=== PATIENT | female | born 2000 | race Caucasian/White ===

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

== ENCOUNTER 2019-07-09 08:52 | Emergency (ER) | payer BC ==
[2019-07-09 09:07] VITALS: BP 124/75; PULSE 82
--- NOTE | 2019-07-09 09:49 | EDM.PDOC ---
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 She states that she had been here to the hospital earlier to have a lab draw to check hCG and progesterone levels. She is 4 para 0 with history of 3 prior miscarriages. She states she is just leaving her house and slipped on a step falling again some plantars along the edge of the step falling to the right side. She has mild right hip discomfort but since that time has had pelvic pain, cramping and a small amount of spotting. She states the discomfort initially was quite severe and now more mild to moderate. No chest pain or difficulty breathing. No head neck or chest discomfort. Pelvic Pain Score (Numeric/FACES): 3 - Related Data Allergies Allergy/AdvReac Type Severity Reaction Status Date / Time amoxicillin Allergy Rash Verified 07/09/19 09:04 tree nut [Pecans] Allergy Airway Verified 07/09/19 09:04 Tightness walnuts Allergy Airway Uncoded 05/07/18 07:53 Tightness Home Meds: Home Meds Pnv No.95/Ferrous Fum/Folic AC [ Vitamin Tablet] 1 tab PO DAILY [History] Sertraline HCl 50 mg PO DAILY 07/09/19 [History] Past Medical History - Past Health History Medical/Surgical History: Denies Medical/Surgical History Respiratory History: Reports: Asthma Gastrointestinal History: Reports: GERD Genitourinary History: Reports: UTI, Recurrent 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 , 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 Psychiatric History: Reports: Depression Endocrine/Metabolic History: Reports: Obesity/BMI 30+ Dermatologic History: Reports: Eczema - Past Surgical History GI Surgical History: Reports: Colonoscopy, EGD Social & Family History - Family History Family Medical History: Noncontributory Oncologic: Reports: Brain, Breast - Caffeine Use Caffeine Use: Reports: Soda - Living Situation & Occupation Living situation: Reports: Single, with Family (Parents) 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 Denies: Nausea, Vomiting : Reports: Other (Patient states there was a small amount of blood when she wiped after her fall, there is been no active bleeding) Musculoskeletal: Reports: Joint Pain (3 mild right hip pain). Denies: Back Pain Skin: Reports: No Symptoms Neurological: Reports: No Symptoms ED EXAM - Physical Exam Exam: See Below Exam Limited By: No Limitations General Appearance: Alert, Anxious (Mild) Eye Exam: Bilateral Eye: PERRL Ears: Normal External Exam Nose: Normal Inspection Throat/Mouth: Normal Inspection Head: Atraumatic. No: Facial Swelling Neck: Supple, Non-Tender Respiratory/Chest: No Respiratory Distress, Lungs Clear, Normal Breath Sounds Cardiovascular: Regular Rate, Rhythm GI/Abdominal Exam: Soft, Non-Tender (Female) Exam: Normal External Exam. No: Vaginal Bleeding, Vaginal Discharge Extremities: Normal Inspection, Normal Range of Motion Neurological: Alert, Oriented, No Motor/Sensory Deficits Skin Exam: Warm, Dry, Normal Color Course - Vital Signs Last Recorded V/S: Last Vital Signs Temp 97.1 F 07/09/19 09:04 Pulse 82 07/09/19 09:04 Resp 18 07/09/19 09:04 BP 124/75 07/09/19 09:04 Pulse Ox 100 07/09/19 09:04 - Re-Assessments/Exams Free Text/Narrative Re-Assessment/Exam: 07/09/19 12:40 HCG drawn 4 days ago by the clinic was 84, hCG today drawn at the clinic prior to dictation arrival 338 with an increase of about what would be expected. Pelvic exam was done with no blood visible. Abdominal exam unremarkable. Have explained to patient that ultrasound today with date of only about 5 weeks is not likely to be very helpful. Patient understands, discharge instructions as documented. Departure - Departure Time of Disposition: 10:15 Disposition: Home, Self-Care 01 Condition: Fair Clinical Impression: Fall, First trimester - Discharge Information Instructions: First Trimester of , [id number] Referrals: Olive Barber DIRECTOR [employer] [Primary Care Provider] - Forms: ED Department Discharge, ED Return to Work/School Form Additional Instructions: Rest, increase activity slowly as tolerated, work note has been provided. No sexual activity recomended this week. Plan to follow-up OB clinic in about 1 week, call for appointment if you do not already have an appointment for the next week to 10 days. Return to ED as needed if symptoms worsening in any way.
== END 2019-07-09 10:55 | disposition home or self-care (01) ==
LOC: JD.ED 08:52
DX: O99.89 Other specified diseases and conditions complicating pregnancy, childbirth and the puerperium (principal); M25.551 Pain in right hip; R10.2 Pelvic and perineal pain; O99.511 Diseases of the respiratory system complicating pregnancy, first trimester; J45.909 Unspecified asthma, uncomplicated; O99.211 Obesity complicating pregnancy, first trimester; O99.341 Other mental disorders complicating pregnancy, first trimester; F32.9 Major depressive disorder, single episode, unspecified; E66.9 Obesity, unspecified; Z3A.01 Less than 8 weeks gestation of pregnancy; Z88.0 Allergy status to penicillin; Z91.018 Allergy to other foods
CPT/HCPCS: 99282; 99283

== ENCOUNTER 2019-07-15 09:19 | Emergency (ER) | payer BC ==
[2019-07-15 09:36] VITALS: BP 124/91; PULSE 104
--- NOTE | 2019-07-15 10:01 | EDM.PDOC ---
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 She is about 6 to 7 weeks gestation with a LNMP if mid to late May. She is G4 AB3. She has never taken a to term or near term. She was putting her progesterone suppository in this morning and she had some bleeding that was mild to moderate and then she started cramping. She has no fever, chills, cough, chest pain, shortness of breath, dysuria, diarrhea or vomiting. She did have some nausea earlier today. Her OB doctor is Dr Lawrence. Onset: Sudden Duration: Hour(s): Location: Reports: Abdomen, Pelvis Quality: Reports: Other (Cramping) Severity: Moderate Improves with: Reports: None Worsens with: Reports: None Associated Symptoms: Reports: Nausea/Vomiting. Denies: Chest Pain, Cough, Fever /Chills, Headaches, Shortness of Breath Lower Abdomen Pain Score (Numeric/FACES): 5 - Related Data Allergies Allergy/AdvReac Type Severity Reaction Status Date / Time amoxicillin Allergy Rash Verified 07/15/19 09:36 tree nut [Pecans] Allergy Airway Verified 07/15/19 09:36 Tightness walnuts Allergy Airway Uncoded 05/07/18 07:53 Tightness Home Meds: Home Meds Pnv No.95/Ferrous Fum/Folic AC [ Vitamin Tablet] 1 tab PO DAILY [History] Sertraline HCl 50 mg PO DAILY 07/09/19 [History] Progesterone. 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 Psychiatric History: Reports: Depression Endocrine/Metabolic History: Reports: Obesity/BMI 30+ Dermatologic History: Reports: Eczema - Past Surgical History GI Surgical History: Reports: Colonoscopy, EGD Social & Family History - Family History Family Medical History: Noncontributory Oncologic: Reports: Brain, Breast - Tobacco Use Smoking Status *Q: Current Every Day Smoker Years of Tobacco use: 3 Packs/Tins Daily: 0.2 - Caffeine Use Caffeine Use: Reports: Soda - Recreational Drug Use Recreational Drug Use: No - Living Situation & Occupation Living situation: Reports: Single, with Family (Parents) 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 Denies: Diarrhea, Vomiting : Reports: No Symptoms Musculoskeletal: Reports: No Symptoms ED EXAM - Physical Exam Exam: See Below Exam Limited By: No Limitations General Appearance: Alert, No Apparent Distress Ears: Normal External Exam Nose: Normal Inspection Head: Atraumatic, Normocephalic Neck: Normal Inspection Respiratory/Chest: No Respiratory Distress, Lungs Clear, Normal Breath Sounds Cardiovascular: Regular Rate, Rhythm, No Edema GI/Abdominal Exam: Soft, Non-Tender, No Organomegaly, No Mass (Female) Exam: Normal External Exam, Normal Speculum Exam (No bleeding and cervix is closed) Back Exam: Normal Inspection Extremities: Normal Inspection Neurological: Alert, Oriented, No Motor/Sensory Deficits Course - Vital Signs Last Recorded V/S: Last Vital Signs Temp 98.2 F 07/15/19 09:32 Pulse 104 H 07/15/19 09:32 Resp 15 07/15/19 09:32 BP 124/91 H 07/15/19 09:32 Pulse Ox 99 07/15/19 09:32 - Orders/Labs/Meds Orders: Active Orders 24 hr Category Date Time Status Pelvic Exam, Set Up [RC] ASDIRECTED Care 07/15/19 09:51 Active Labs: Laboratory Tests 07/15/19 07/15/19 07/15/19 Range/Units 09:59 10:15 10:15 WBC 13.43 H (3.98-10.04) K/mm3 RBC 4.63 (3.98-5.22) M/mm3 Hgb 13.7 (11.2-15.7) gm/dl Hct 41.0 (34.1-44.9) % MCV 88.6 (79.4-94.8) fl MCH 29.6 (25.6-32.2) pg MCHC 33.4 (32.2-35.5) g/dl RDW Std Deviation 43.1 (36.4-46.3) fL Plt Count 356 (182-369) K/mm3 MPV 9.4 (9.4-12.3) fl Neut % (Auto) 70.9 (34.0-71.1) % Lymph % (Auto) 17.8 L (19.3-51.7) % Desha % (Auto) 7.9 (4.7-12.5) % Eos % (Auto) 1.7 (0.7-5.8) Baso % (Auto) 0.2 (0.1-1.2) % Neut # (Auto) 9.52 H (1.56-6.13) K/mm3 Lymph # (Auto) 2.39 (1.18-3.74) K/mm3 Desha # (Auto) 1.06 H (0.24-0.36) K/mm3 Eos # (Auto) 0.23 (0.04-0.36) K/mm3 Baso # (Auto) 0.03 (0.01-0.08) K/mm3 Manual Slide Review Normal smear Sodium 136 (136-145) mEq/L Potassium 3.8 (3.5-5.1) mEq/L Chloride 104 (98-107) mEq/L Carbon Dioxide 22 (21-32) mEq/L Anion Gap 13.8 (5-15) BUN 8 (7-18) mg/dL Creatinine 0.6 (0.55-1.02) mg/dL Est Cr Clr Drug Dosing 129.15 mL/min Estimated GFR (MDRD) > 60 (>60) mL/min BUN/Creatinine Ratio 13.3 L (14-18) Glucose 98 (74-106) mg/dL Calcium 8.9 (8.5-10.1) mg/dL Total Bilirubin 0.4 (0.2-1.0) mg/dL AST 37 (15-37) U/L ALT 73 H (14-59) U/L Alkaline Phosphatase 88 (46-116) U/L Total Protein 6.7 (6.4-8.2) g/dl Albumin 3.7 (3.4-5.0) g/dl Globulin 3.0 gm/dL Albumin/Globulin Ratio 1.2 (1-2) Lipase 98 (73-393) U/L HCG, Quant mIU/mL Urine Color Yellow (Yellow) Urine Appearance Slt cloudy H (Clear) Urine pH 6.0 (5.0-8.0) Ur Specific [place] > or = 1.030 (1.005-1.030) Urine Protein 1+ H (Negative) Urine Glucose (UA) Negative (Negative) Urine Ketones Negative (Negative) Urine Occult Blood 3+ H (Negative) Urine Nitrite Negative (Negative) Urine Bilirubin 1+ H (Negative) Urine Urobilinogen 1.0 (0.2-1.0) Ur Leukocyte Esterase 1+ H (Negative) Urine RBC 20-30 H (0-5) /hpf Urine WBC 5-10 H (0-5) /hpf Ur Squamous Epith Cells 10-20 H (0-5) /hpf Amorphous Sediment Few H (NOT SEEN) /hpf Urine Bacteria Moderate H (FEW) /hpf Hyaline Casts 0-5 (0-5) /lpf Urine Mucus Many H (FEW) /hpf Blood Type 07/15/19 07/15/19 Range/Units 10:15 10:15 WBC (3.98-10.04) K/mm3 RBC (3.98-5.22) M/mm3 Hgb (11.2-15.7) gm/dl Hct (34.1-44.9) % MCV (79.4-94.8) fl MCH (25.6-32.2) pg MCHC (32.2-35.5) g/dl RDW Std Deviation (36.4-46.3) fL Plt Count (182-369) K/mm3 MPV (9.4-12.3) fl Neut % (Auto) (34.0-71.1) % Lymph % (Auto) (19.3-51.7) % Desha % (Auto) (4.7-12.5) % Eos % (Auto) (0.7-5.8) Baso % (Auto) (0.1-1.2) % Neut # (Auto) (1.56-6.13) K/mm3 Lymph # (Auto) (1.18-3.74) K/mm3 Desha # (Auto) (0.24-0.36) K/mm3 Eos # (Auto) (0.04-0.36) K/mm3 Baso # (Auto) (0.01-0.08) K/mm3 Manual Slide Review Sodium (136-145) mEq/L Potassium (3.5-5.1) mEq/L Chloride (98-107) mEq/L Carbon Dioxide (21-32) mEq/L Anion Gap (5-15) BUN (7-18) mg/dL Creatinine (0.55-1.02) mg/dL Est Cr Clr Drug Dosing mL/min Estimated GFR (MDRD) (>60) mL/min BUN/Creatinine Ratio (14-18) Glucose (74-106) mg/dL Calcium (8.5-10.1) mg/dL Total Bilirubin (0.2-1.0) mg/dL AST (15-37) U/L ALT (14-59) U/L Alkaline Phosphatase (46-116) U/L Total Protein (6.4-8.2) g/dl Albumin (3.4-5.0) g/dl Globulin gm/dL Albumin/Globulin Ratio (1-2) Lipase (73-393) U/L HCG, Quant 3768.0 mIU/mL Urine Color (Yellow) Urine Appearance (Clear) Urine pH (5.0-8.0) Ur Specific [place] (1.005-1.030) Urine Protein (Negative) Urine Glucose (UA) (Negative) Urine Ketones (Negative) Urine Occult Blood (Negative) Urine Nitrite (Negative) Urine Bilirubin (Negative) Urine Urobilinogen (0.2-1.0) Ur Leukocyte Esterase (Negative) Urine RBC (0-5) /hpf Urine WBC (0-5) /hpf Ur Squamous Epith Cells (0-5) /hpf Amorphous Sediment (NOT SEEN) /hpf Urine Bacteria (FEW) /hpf Hyaline Casts (0-5) /lpf Urine Mucus (FEW) /hpf Blood Type O POSITIVE - Re-Assessments/Exams Free Text/Narrative Re-Assessment/Exam: 07/15/19 10:02 I have ordered labs, UA, pelvic exam and a transvaginal OB US. 07/15/19 11:28 Her WBC was elevated at 13.43. Her CMP looks good. Her lipase is negative. Her HCG is elevated at 3768. That has gone up from 338 on the . Her UA shows no UTI and it was contaminated. Her US shows gestational sac and yolk sac. No pole. Findings most likely represent very early . No complicating process is seen by US at this time. I will discharge her and have her follow up with Dr Lawrence. Departure - Departure Time of Disposition: 11:30 Disposition: Home, Self-Care 01 Condition: Good Clinical Impression: Vaginal bleeding affecting early Qualifiers: Weeks of gestation: less than 8 weeks Qualified Code(s): Z3A.01 - Less than 8 weeks gestation of - Discharge Information *PRESCRIPTION DRUG MONITORING PROGRAM REVIEWED*: No *COPY OF PRESCRIPTION DRUG MONITORING REPORT IN PATIENT ALEXYS: No Referrals: Jese Lawrence MD [Primary Care Provider] - 1 Week Forms: ED Department Discharge Additional Instructions: No vaginal intercourse or heavy lifting over 10 pounds until cleared by Dr Lawrence. Please return if you are worse. - My Orders Last 24 Hours: My Active Orders 07/15/19 09:51 Pelvic Exam, Set Up [RC] ASDIRECTED - Assessment/Plan Last 24 Hours: My Active Orders 07/15/19 09:51 Pelvic Exam, Set Up [RC] ASDIRECTED
--- NOTE | 2019-07-15 10:57 | US ---
First trimester obstetrical ultrasound: Multiple real-time images were obtained transvaginally. Comparison: No previous study for current . Dates: LMP: LMP given as 05/24/19, MIGUEL 03/09/20, gestational age 6 weeks 0 days Small gestational sac is seen within the endometrial cavity. Yolk sac is noted but no pole is seen at this time most likely due to early age of the . No subchorionic hemorrhage or implantation bleed is seen at this time. Follicles are noted within the ovaries. Impression: 1. Gestational sac and yolk sac. No pole. Findings most likely represent very early . 2. No complicating process is seen by ultrasound at this time. Diagnostic code #1 This report was dictated in [place] Standard Time
== END 2019-07-15 11:38 | disposition home or self-care (01) ==
LOC: JD.ED 09:19
DX: O20.9 Hemorrhage in early pregnancy, unspecified (principal); O99.511 Diseases of the respiratory system complicating pregnancy, first trimester; J45.909 Unspecified asthma, uncomplicated; O99.331 Smoking (tobacco) complicating pregnancy, first trimester; Z88.0 Allergy status to penicillin; Z91.018 Allergy to other foods; Z3A.01 Less than 8 weeks gestation of pregnancy
CPT/HCPCS: 36415; 76817; 76817-26; 80053; 81001; 83690; 84702; 85025; 86900; 86901; 99282; 99284-25

== ENCOUNTER 2019-07-29 12:53 | Emergency (ER) | payer BC ==
[2019-07-29 13:19] VITALS: BP 124/71; PULSE 87
[2019-07-29] MEDS ORDERED: cefTRIAXone 1 GM Vial IM ONE (13:19)
[2019-07-29] MEDS ORDERED: Ondansetron 4 MG Tab.DIS PO ONE (13:19)
--- NOTE | 2019-07-29 13:23 | EDM.PDOC ---
ED HPI GENERAL MEDICAL PROBLEM - General Chief Complaint: Gastrointestinal Problem Stated Complaint: 7 WEEKS PREG VOMITING BLOOD AND DIZZY Time Seen by Provider: 07/29/19 13:14 Source of Information: Reports: Patient History Limitations: Reports: No Limitations - History of Present Illness INITIAL COMMENTS - FREE TEXT/NARRATIVE: Since unfortunate 19-year-old obese female who presents today with complaint of cough congestion runny nose and posttussive vomiting. Patient reports she has been sick for 2 days and she started having post vomiting today with streaks of blood in it so she became concerned and came to emergency department for evaluation. No abdominal pain no vaginal discharge no vaginal bleeding or dysuria no frequency or urgency. LMP 06/05/2019 6 weeks by dates, patient is a G4 A3 P0 - Related Data Allergies Allergy/AdvReac Type Severity Reaction Status Date / Time amoxicillin Allergy Rash Verified 07/29/19 13:19 tree nut [Pecans] Allergy Airway Verified 07/29/19 13:19 Tightness walnuts Allergy Airway Uncoded 05/07/18 07:53 Tightness Home Meds: Home Meds Pnv No.95/Ferrous Fum/Folic AC [ Vitamin Tablet] 1 tab PO DAILY [History] Sertraline HCl 50 mg PO DAILY 07/09/19 [History] Progesterone. 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 Psychiatric History: Reports: Depression Endocrine/Metabolic History: Reports: Obesity/BMI 30+ Dermatologic History: Reports: Eczema - Past Surgical History GI Surgical History: Reports: Colonoscopy, EGD Social & Family History - Family History Family Medical History: Noncontributory Oncologic: Reports: Brain, Breast - Caffeine Use Caffeine Use: Reports: Soda - Living Situation & Occupation Living situation: Reports: Single, with Family (Parents) 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 Denies: Ear Discharge, Ear Pain, Throat Swelling Respiratory: Reports: Cough. Denies: Sputum Cardiovascular: Denies: Chest Pain GI/Abdominal: Reports: Vomiting (Posttussive) ED EXAM, GENERAL - Physical Exam Exam: See Below Exam Limited By: No Limitations General Appearance: Alert, WD/WN, Obese Ears: Normal External Exam, Normal Canal, Hearing Grossly Normal, Normal TMs Nose: Normal Inspection, Normal Mucosa, No Blood Throat/Mouth: Other (Pharyngeal erythema, postnasal drainage) Head: Atraumatic, Normocephalic Neck: Normal Inspection, Supple, Non-Tender, Other (Cervical lymphadenopathy 2+) Respiratory/Chest: No Respiratory Distress, Other (Bronchial breath sounds) Cardiovascular: Normal Peripheral Pulses, Regular Rate, Rhythm, No Edema, No Gallop, No JVD, No Murmur, No Rub GI/Abdominal: Normal Bowel Sounds Back Exam: Normal Inspection, Full Range of Motion, NT Extremities: Normal Inspection, Normal Range of Motion, Non-Tender, Normal Capillary Refill, No Pedal Edema Neurological: Alert, Oriented Skin Exam: Warm, Dry, Intact Course - Vital Signs Last Recorded V/S: Last Vital Signs Temp 97.5 F 07/29/19 13:16 Pulse 87 07/29/19 13:16 Resp 15 07/29/19 13:16 BP 124/71 07/29/19 13:16 Pulse Ox 98 07/29/19 13:16 - Orders/Labs/Meds Meds: Medications Discontinued Medications Generic Name Dose Route Start Last Admin Trade Name Freq PRN Reason Stop Dose Admin Ceftriaxone Sodium 1 gm 07/29/19 13:19 Rocephin IM 07/29/19 13:20 ONETIME ONE Ondansetron HCl 4 mg 07/29/19 13:19 Zofran Odt PO 07/29/19 13:20 ONETIME ONE Departure - Departure Time of Disposition: 13:23 Disposition: Home, Self-Care 01 Condition: Good Clinical Impression: Acute bronchitis, Acute pharyngitis, Acute sinusitis - Discharge Information Prescriptions: Azithromycin [Zithromax] 250 mg PO DAILY #6 tab Promethazine/Dextromethorphan [Promethazine-Dm Solution] 5 ml PO Q6H PRN #120 ml PRN Reason: Cough Instructions: Sinusitis, Adult, [id number], Acute Bronchitis, Adult, Easy-to- Read Referrals: Jese Lawrence MD [Primary Care Provider] - Forms: ED Department Discharge Additional Instructions: Home, rest, return as needed for worsening condition Sepsis Event Note - Evaluation Sepsis Screening Result: No Definite Risk - Focused Exam Vital Signs: Vital Signs Temp Pulse Resp BP Pulse Ox 07/29/19 13:16 97.5 F 87 15 124/71 98 Date Exam was Performed: 07/29/19 Time Exam was Performed: 13:23
== END 2019-07-29 13:54 | disposition home or self-care (01) ==
LOC: JD.ED 12:53
DX: O99.511 Diseases of the respiratory system complicating pregnancy, first trimester (principal); J20.9 Acute bronchitis, unspecified; J02.9 Acute pharyngitis, unspecified; J01.90 Acute sinusitis, unspecified; J45.909 Unspecified asthma, uncomplicated; O99.211 Obesity complicating pregnancy, first trimester; E66.9 Obesity, unspecified; Z88.0 Allergy status to penicillin; Z91.018 Allergy to other foods; Z68.34 Body mass index [BMI] 34.0-34.9, adult; Z3A.01 Less than 8 weeks gestation of pregnancy
CPT/HCPCS: 96372; 99283; A9270; J0696

== ENCOUNTER 2019-08-13 10:10 | Emergency (ER) | payer BC ==
[2019-08-13 10:33] VITALS: BP 117/69; PULSE 63
--- NOTE | 2019-08-13 10:59 | EDM.PDOC ---
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 She states she is about 10 weeks with the first day of her last menstrual period being 09 June. She describes the bleeding as light, but significant enough to be visible in the toilet. She has not been saturating any pads. She is A3, so when she starts cramping and bleeding she comes in right away. She did see her OB doctor Howard on July 23, which she states was a follow-up from her previous miscarriage. She is on a progesterone suppository. She is unsure of her blood type. Pelvic Pain Score (Numeric/FACES): 7 - Related Data Allergies Allergy/AdvReac Type Severity Reaction Status Date / Time amoxicillin Allergy Rash Verified 08/13/19 10:33 tree nut [Pecans] Allergy Airway Verified 08/13/19 10:33 Tightness walnuts Allergy Airway Uncoded 05/07/18 07:53 Tightness Home Meds: Home Meds Pnv No.95/Ferrous Fum/Folic AC [ Vitamin Tablet] 1 tab PO DAILY [History] Sertraline HCl 50 mg PO DAILY 07/09/19 [History] Progesterone. 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 SUPERVISOR History: G 4 P 0 LMP 06/02 Psychiatric History: Reports: Depression Endocrine/Metabolic History: Reports: Obesity/BMI 30+ Dermatologic History: Reports: Eczema - Past Surgical History GI Surgical History: Reports: Colonoscopy, EGD Social & Family History - Family History Family Medical History: Noncontributory Oncologic: Reports: Brain, Breast - Tobacco Use Smoking Status *Q: Never Smoker - Caffeine Use Caffeine Use: Reports: Coffee, Soda - Recreational Drug Use Recreational Drug Use: No - Living Situation & Occupation Living situation: Reports: Single, with Family (Parents) 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 Denies: Fever, Chills HEENT: Reports: No Symptoms Respiratory: Reports: No Symptoms Cardiovascular: Reports: No Symptoms Endocrine: Reports: No Symptoms : Reports: Other (suprapubic pain and vaginal bleeding) Musculoskeletal: Reports: No Symptoms Skin: Reports: No Symptoms Neurological: Reports: No Symptoms Psychiatric: Reports: No Symptoms Hematologic/Lymphatic: Reports: No Symptoms Immunologic: Reports: No Symptoms ED EXAM - Physical Exam Exam: See Below Exam Limited By: No Limitations General Appearance: Alert, WD/WN, No Apparent Distress Respiratory/Chest: No Respiratory Distress, Lungs Clear, Normal Breath Sounds, No Accessory Muscle Use, Chest Non-Tender Cardiovascular: Normal Peripheral Pulses, Regular Rate, Rhythm, No Edema, No Murmur GI/Abdominal Exam: Normal Bowel Sounds, Soft, Other (mild suprapubic tenderness) (Female) Exam: Normal External Exam, Cervical Lesions (area of slight excoriation near the cervical os. no active bleeding.), Vaginal Discharge ( Thick white discharge present. Wet prep swab completed.). No: Cervical Dilatation, Tissue Present in Cervix/Vagina, Vaginal Bleeding Neurological: Alert, Oriented, Normal Cognition Psychiatric: Normal Affect, Normal Mood Skin Exam: Warm, Dry, Intact, Normal Color, No Rash Course - Vital Signs Last Recorded V/S: Last Vital Signs Temp 98.7 F 08/13/19 10:30 Pulse 63 08/13/19 10:30 Resp 16 08/13/19 10:30 BP 117/69 08/13/19 10:30 Pulse Ox 98 08/13/19 10:30 - Orders/Labs/Meds Orders: Active Orders 24 hr Category Date Time Status Pelvic Exam, Set Up [RC] ASDIRECTED Care 08/13/19 12:12 Active TYPE AND SCREEN [BBK] Stat Lab 08/13/19 11:13 Received Labs: Laboratory Tests 08/13/19 08/13/19 Range/Units 11:13 12:45 HCG, Quant 38007.0 mIU/mL Urine Color Yellow (Yellow) Urine Appearance Slt cloudy H (Clear) Urine pH 8.5 H (5.0-8.0) Ur Specific [place] 1.020 (1.005-1.030) Urine Protein Negative (Negative) Urine Glucose (UA) Negative (Negative) Urine Ketones Negative (Negative) Urine Occult Blood Negative (Negative) Urine Nitrite Negative (Negative) Urine Bilirubin Negative (Negative) Urine Urobilinogen 0.2 (0.2-1.0) Ur Leukocyte Esterase Negative (Negative) Urine RBC 0-5 (0-5) /hpf Urine WBC 0-5 (0-5) /hpf Ur Squamous Epith Cells 0-5 (0-5) /hpf Urine Bacteria Few (FEW) /hpf Urine Mucus Few (FEW) /hpf - Re-Assessments/Exams Free Text/Narrative Re-Assessment/Exam: I have ordered a type and screen, urinalysis, hCG quantitative, and an OB transvaginal ultrasound. Patient denies a need for any pain medications at this time. 08/13/19 13:04 Pelvic exam completed. Cervix is closed, there is no tissue in the os, and there is no active bleeding. There is a small area of excoriation near the cervical os. Patient was noted to have some thick white vaginal discharge. Wet prep was collected to check for the presence of a yeast infection. Patient denies any vaginal itching. Urinalysis is negative for any infection. Ultrasound shows a single intrauterine gestation with an estimated due date of . No complicating process as it is identified on the ultrasound. No etiology is identified for patient's bleeding. Patient's hCG is 84,625 which would correspond with the gestational age estimated by the ultrasound. Patient' s blood type is O+ so there is no need for Rhogam. I did discuss with her that at this time she is considered to have a threatened miscarriage. She'll be discharged home to follow up with Dr. Lawrence. Discharge instructions as noted. 08/13/19 14:14 Wet prep was negative for a yeast infection. No changes to plan of care. Departure - Departure Time of Disposition: 13:15 Disposition: Home, Self-Care 01 Condition: Fair Clinical Impression: Threatened - Discharge Information *PRESCRIPTION DRUG MONITORING PROGRAM REVIEWED*: No *COPY OF PRESCRIPTION DRUG MONITORING REPORT IN PATIENT ALEXYS: No Instructions: Threatened Miscarriage, Vaginal Bleeding During , First Trimester Referrals: Jese Lawrence MD [Primary Care Provider] - Forms: ED Department Discharge Additional Instructions: You were seen in the emergency department this morning with complaints of vaginal bleeding and cramping. There were no abnormal findings on your exam or testing to indicate a cause for the bleeding and no active bleeding was seen at the time of exam. As we discussed, at this time you have what is termed a threatened miscarriage which means that the testing and exam was normal, however , it is still possible that you may be having a miscarriage. We suggest that you call to schedule an appointment with your REMOTE ENCODING OPERATIONS SUPERVISOR at his next available appointment. If your bleeding should increase to the point where you're saturating more than 2 pads per hour for more than 2 hours or your pain becomes too severe to tolerate, you should return to the emergency department. The results of her wet prep are still pending. If anything should come back on this that requires treatment, we will call and notify you. Sepsis Event Note - Evaluation Sepsis Screening Result: No Definite Risk - Focused Exam Vital Signs: Vital Signs Temp Pulse Resp BP Pulse Ox 08/13/19 10:30 98.7 F 63 16 117/69 98 Date Exam was Performed: 08/13/19 Time Exam was Performed: 14:14 - My Orders Last 24 Hours: My Active Orders 08/13/19 11:13 TYPE AND SCREEN [BBK] Stat 08/13/19 12:12 Pelvic Exam, Set Up [RC] ASDIRECTED - Assessment/Plan Last 24 Hours: My Active Orders 08/13/19 11:13 TYPE AND SCREEN [BBK] Stat 08/13/19 12:12 Pelvic Exam, Set Up [RC] ASDIRECTED
--- NOTE | 2019-08-13 12:34 | US ---
First trimester obstetrical ultrasound: Multiple real-time images were obtained transvaginally. Comparison: Previous first trimester obstetrical ultrasound of 07/23/19. Dates: Current ultrasound: MIGUEL 03/12/20, gestational age 9 weeks 5 days Previous ultrasound (07/23/19): MIGUEL 03/14/20, gestational age 9 weeks 3 days. Single intrauterine gestation is seen. Amniotic fluid volume is normal. Embryo is identified. No subchorionic hemorrhage is seen. Small yolk sac is present. Minimal fluid within the cul-de-sac is seen which is believed to be incidental. Maternal ovaries are identified and appear within normal limits. Measurements: Bantry-rump length: 2.90 cm - 9 weeks 5 days Heart rate: 163 bpm Impression: 1. Single intrauterine gestation. Dates as noted above. 2. No complicating process is identified by ultrasound. No etiology is identified for the patient's bleeding. Diagnostic code #1 This report was dictated in [place] Standard Time
== END 2019-08-13 13:47 | disposition home or self-care (01) ==
LOC: JD.ED 10:10
DX: O20.0 Threatened abortion (principal); O99.511 Diseases of the respiratory system complicating pregnancy, first trimester; J45.909 Unspecified asthma, uncomplicated; O99.211 Obesity complicating pregnancy, first trimester; O99.341 Other mental disorders complicating pregnancy, first trimester; F32.9 Major depressive disorder, single episode, unspecified; Z88.1 Allergy status to other antibiotic agents; Z91.018 Allergy to other foods; Z79.899 Other long term (current) drug therapy; Z3A.09 9 weeks gestation of pregnancy
CPT/HCPCS: 36415; 76817; 76817-26; 81001; 84702; 86850; 86900; 86901; 87210; 87808; 99282; 99284-25

== ENCOUNTER 2019-09-29 15:30 | Emergency (ER) | payer BC, MEDICAID ==
[2019-09-29] MEDS ORDERED: Alum Hydrox/Mag Hydrox/Simeth 30 ML, Lidocaine 2% 15 ML PO STA ×2 (16:10)
--- NOTE | 2019-09-29 16:26 | EDM.PDOC ---
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 Montgomery is a pleasant 19-year-old woman who is currently . LMP 2018 -> 16w 0d with MIGUEL 03/15/2020. . She states that she has undergone 2 or 3 obstetric ultrasounds during this , each finding a SLIUP, with the most recent ultrasound about 6 weeks ago. She now presents to the ED stating that she developed lightheadedness and rapid palpitations around 08:00 this morning. She vomited twice, and while she has had morning sickness during this , she states that she hasn't vomited for the past 2 weeks. She then developed retrosternal chest pain around 14:00 this afternoon, followed by lower abdominal pain around 14:30. She describes the chest pain as sharp and pressure-like in character. It comes and goes, and when present, she feels short of breath. She describes the lower abdominal pain as sharp in character and constant. She has not had any vaginal bleeding. She reports a decreased appetite today. She denies prior similar symptoms. The patient has a history of depression and anxiety, but states that she stopped taking her sertraline about one month ago, because she repeatedly forgot to take it, therefore she just decided to stop it altogether. The patient states that she has had panic attacks numerous times in the past, however, she states that her current symptoms are not like prior panic attacks. The patient also has a history of GERD, untreated other than with occasional TUMS. The patient has undergone a single EGD and single colonoscopy, but no other surgeries. She still has her appendix. The patient denies recent illness, such as fever, chills, cough, constipation, diarrhea, back pain, urinary symptoms, recent bloody bowel movements or black bowel movements, recent joint aches, headaches, or rashes. Here in the ED, the patient is found to be tachycardic at 115 bpm, with an oxygen saturation of 100% on room air. The patient last ate around 09:00 this morning. She did not take any [id number] or home remedies prior to coming to the ED. The patient's PCP is BRAYAN Schumacher. Her [facility] Aisle Cashier is Dr. Jese Lawrence. She did not receive an influenza vaccine this season, but agreed to receive one here today. 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 , Spontaneous : 4 Para: 0 Psychiatric History: Reports: Anxiety (untreated), Depression (untreated) Endocrine/Metabolic History: Reports: Obesity/BMI 30+ Dermatologic History: Reports: Eczema - Past Surgical History GI Surgical History: Reports: Colonoscopy (x 1), EGD (x 1) Social & Family History - Family History Family Medical History: Noncontributory Oncologic: Reports: Brain, Breast - Tobacco Use Smoking Status *Q: Former Smoker Used Tobacco, but Quit: Yes Month/Year Tobacco Last Used: August - Caffeine Use Caffeine Use: Reports: Coffee, Soda - Recreational Drug Use Recreational Drug Use: No - Living Situation & Occupation Living situation: Reports: Single, with Family (Parents) 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 ED EXAM, GENERAL - Physical Exam Exam: See Below Exam Limited By: No Limitations General Appearance: Alert, WD/WN, No Apparent Distress Eye Exam: Bilateral Eye: EOMI, Normal Inspection Ears: Normal External Exam, Hearing Grossly Normal Nose: Normal Inspection Throat/Mouth: Normal Inspection, Normal Lips, Normal Voice, No Airway Compromise Head: Atraumatic, Normocephalic Neck: Normal Inspection, Full Range of Motion Respiratory/Chest: No Respiratory Distress, Lungs Clear, Normal Breath Sounds, No Accessory Muscle Use Cardiovascular: Normal Peripheral Pulses, No Gallop, No JVD, No Murmur, No Rub, Tachycardia (regular) Peripheral Pulses: 4+: Radial (L), Radial (R) GI/Abdominal: Normal Bowel Sounds, Soft, No Organomegaly, No Distention, No Abnormal Bruit, Tender (Across entire lower abdomen, right > left), Mass ( gravid uterus consistent with dates) (Female) Exam: Deferred Rectal (Female) Exam: Deferred Back Exam: Normal Inspection, Full Range of Motion. No: CVA Tenderness (L), CVA Tenderness (R) Extremities: Normal Inspection, Normal Range of Motion, No Pedal Edema, Normal Capillary Refill Neurological: Alert, Oriented, Normal Cognition, No Motor/Sensory Deficits Psychiatric: Normal Affect Skin Exam: Warm, Dry, Intact, Normal Color, No Rash EKG INTERPRETATION EKG Date: 09/29/19 Time: 16:17 Rhythm: Other (Sinus tachycardia) Rate (Beats/Min): 110 Holden: Normal P-Wave: Present QRS: Normal ST-T: Normal QT: Normal Comparison: NA - No Prior EKG Course - Vital Signs Last Recorded V/S: Last Vital Signs Temp 36.6 C 09/29/19 15:37 Pulse 115 H 09/29/19 15:37 Resp 12 09/29/19 15:37 BP 132/94 H 09/29/19 15:37 Pulse Ox 100 09/29/19 15:37 Orthostatic Blood Pressure [ 106/71 Standing] Orthostatic Blood Pressure [ 122/70 Sitting] Orthostatic Blood Pressure [ 116/63 Supine] - Orders/Labs/Meds Orders: Active Orders 24 hr Category Date Time Status EKG Documentation Completion [RC] STAT Care 09/29/19 16:07 Active Heart Rate [RC] Click to Edit Care 09/29/19 16:10 Active Influenza Vaccine Charge [RC] .DISCHARGE Care 09/29/19 17:10 Active Orthostatic Vital Signs [RC] STAT Care 09/29/19 16:07 Active Chest 2V [CR] Stat Exams 09/29/19 19:24 Ordered BLOOD GAS ARTERIAL [BG] Stat Lab 09/29/19 16:07 Ordered Labs: Laboratory Tests 09/29/19 09/29/19 09/29/19 Range/Units 16:26 16:26 16:26 WBC 13.19 H (3.98-10.04) K/mm3 RBC 4.32 (3.98-5.22) M/mm3 Hgb 12.9 (11.2-15.7) gm/dl Hct 38.9 (34.1-44.9) % MCV 90.0 (79.4-94.8) fl MCH 29.9 (25.6-32.2) pg MCHC 33.2 (32.2-35.5) g/dl RDW Std Deviation 42.8 (36.4-46.3) fL Plt Count 335 (182-369) K/mm3 MPV 9.6 (9.4-12.3) fl Neutrophils % (Manual) 68 H (40-60) % Band Neutrophils % 0 (0-10) % Lymphocytes % (Manual) 23 (20-40) % Atypical Lymphs % 0 % Monocytes % (Manual) 8 (2-10) % Eosinophils % (Manual) 1 (0.7-5.8) % Basophils % (Manual) 0 L (0.1-1.2) Toxic Granulation Few Platelet Estimate Adequate RBC Morph Comment Normal D-Dimer, Quantitative 0.78 H (0.19-0.50) mg/L Sodium 141 (136-145) mEq/L Potassium 3.3 L (3.5-5.1) mEq/L Chloride 104 (98-107) mEq/L Carbon Dioxide 24 (21-32) mEq/L Anion Gap 16.3 H (5-15) BUN 7 (7-18) mg/dL Creatinine 0.6 (0.55-1.02) mg/dL Est Cr Clr Drug Dosing 123.72 mL/min Estimated GFR (MDRD) > 60 (>60) mL/min BUN/Creatinine Ratio 11.7 L (14-18) Glucose 103 (74-106) mg/dL Calcium 9.2 (8.5-10.1) mg/dL Magnesium 1.7 L (1.8-2.4) mg/dl Total Bilirubin 0.3 (0.2-1.0) mg/dL AST 17 (15-37) U/L ALT 31 (14-59) U/L Alkaline Phosphatase 82 (46-116) U/L Troponin I < 0.017 (0.00-0.056) ng/mL NT-Pro-B Natriuret Pep (0-125) pg/mL Total Protein 7.1 (6.4-8.2) g/dl Albumin 3.3 L (3.4-5.0) g/dl Globulin 3.8 gm/dL Albumin/Globulin Ratio 0.9 L (1-2) TSH 3rd Generation 2.390 (0.516-4.13) uIU/mL Urine Color (Yellow) Urine Appearance (Clear) Urine pH (5.0-8.0) Ur Specific [place] (1.005-1.030) Urine Protein (Negative) Urine Glucose (UA) (Negative) Urine Ketones (Negative) Urine Occult Blood (Negative) Urine Nitrite (Negative) Urine Bilirubin (Negative) Urine Urobilinogen (0.2-1.0) Ur Leukocyte Esterase (Negative) Urine RBC (0-5) /hpf Urine WBC (0-5) /hpf Ur Squamous Epith Cells (0-5) /hpf Amorphous Sediment (NOT SEEN) /hpf Urine Bacteria (FEW) /hpf Urine Mucus (FEW) /hpf 09/29/19 09/29/19 Range/Units 16:26 18:45 WBC (3.98-10.04) K/mm3 RBC (3.98-5.22) M/mm3 Hgb (11.2-15.7) gm/dl Hct (34.1-44.9) % MCV (79.4-94.8) fl MCH (25.6-32.2) pg MCHC (32.2-35.5) g/dl RDW Std Deviation (36.4-46.3) fL Plt Count (182-369) K/mm3 MPV (9.4-12.3) fl Neutrophils % (Manual) (40-60) % Band Neutrophils % (0-10) % Lymphocytes % (Manual) (20-40) % Atypical Lymphs % % Monocytes % (Manual) (2-10) % Eosinophils % (Manual) (0.7-5.8) % Basophils % (Manual) (0.1-1.2) Toxic Granulation Platelet Estimate RBC Morph Comment D-Dimer, Quantitative (0.19-0.50) mg/L Sodium (136-145) mEq/L Potassium (3.5-5.1) mEq/L Chloride (98-107) mEq/L Carbon Dioxide (21-32) mEq/L Anion Gap (5-15) BUN (7-18) mg/dL Creatinine (0.55-1.02) mg/dL Est Cr Clr Drug Dosing mL/min Estimated GFR (MDRD) (>60) mL/min BUN/Creatinine Ratio (14-18) Glucose (74-106) mg/dL Calcium (8.5-10.1) mg/dL Magnesium (1.8-2.4) mg/dl Total Bilirubin (0.2-1.0) mg/dL AST (15-37) U/L ALT (14-59) U/L Alkaline Phosphatase (46-116) U/L Troponin I (0.00-0.056) ng/mL NT-Pro-B Natriuret Pep 26 (0-125) pg/mL Total Protein (6.4-8.2) g/dl Albumin (3.4-5.0) g/dl Globulin gm/dL Albumin/Globulin Ratio (1-2) TSH 3rd Generation (0.516-4.13) uIU/mL Urine Color Yellow (Yellow) Urine Appearance Cloudy H (Clear) Urine pH 7.5 (5.0-8.0) Ur Specific [place] 1.025 (1.005-1.030) Urine Protein Trace H (Negative) Urine Glucose (UA) Negative (Negative) Urine Ketones Negative (Negative) Urine Occult Blood Negative (Negative) Urine Nitrite Negative (Negative) Urine Bilirubin Negative (Negative) Urine Urobilinogen 1.0 (0.2-1.0) Ur Leukocyte Esterase Negative (Negative) Urine RBC 0-5 (0-5) /hpf Urine WBC 0-5 (0-5) /hpf Ur Squamous Epith Cells 5-10 H (0-5) /hpf Amorphous Sediment Many H (NOT SEEN) /hpf Urine Bacteria Few (FEW) /hpf Urine Mucus Not seen (FEW) /hpf Meds: Medications Discontinued Medications Generic Name Dose Route Start Last Admin Trade Name Freq PRN Reason Stop Dose Admin Hydrocodone Bitart/Acetaminophen 2 tab 09/29/19 18:11 09/29/19 18:22 [place] 325-5 Mg PO 09/29/19 18:12 2 tab ONETIME STA Administration Al Hydroxide/Mg Hydroxide 30 0 ml 09/29/19 16:10 09/29/19 16:15 ml/ Lidocaine HCl 15 ml PO 09/29/19 16:11 45 ml ONETIME STA Administration Hydromorphone HCl 0.5 mg 09/29/19 17:14 Dilaudid IVPUSH 09/29/19 17:15 ONETIME ONE Sodium Chloride 1,000 mls @ 125 mls/hr 09/29/19 17:15 Normal Saline IV ASDIRECTED ABE Influenza Virus Vaccine 1 each 09/29/19 17:10 Pharmacy To Dose - Influenza Vaccine IM 09/29/19 17:11 ONETIME ONE Influenza Virus Vaccine 60 mcg 09/29/19 17:15 09/29/19 19:19 Fluzone Quad [id number] Syringe IM 09/29/19 17:16 60 mcg .ONCE ONE Administration Ondansetron HCl 4 mg 09/29/19 17:14 Zofran IVPUSH 09/29/19 17:15 ONETIME ONE Ondansetron HCl 4 mg 09/29/19 18:12 09/29/19 18:22 Zofran Odt PO 09/29/19 18:13 4 mg ONETIME ONE Administration - Re-Assessments/Exams Free Text/Narrative Re-Assessment/Exam: 09/29/19 16:12 The patient appears to have 2 different problems in the context of a second trimester : 1. Chest pain and shortness of breath 2. Lower abdominal pain and tenderness, particularly to the right lower quadrant The patient's chest pain could easily be due to GERD, since the patient has a history of untreated GERD and is , which increases intra-abdominal pressure. I have ordered a GI cocktail to see if that helps, however, GERD does not really explain the patient's report of shortness of breath and palpitations. While I suspect that those symptoms are due to anxiety, particularly since she self-discontinued her sertraline about a month ago, increases the risk of DVTs and PEs. I have ordered a D-dimer to evaluate, however, D-dimer goes up with , therefore I expect it to be elevated. On the off-chance that it is not elevated, we can effectively rule out a PE, however, if it is elevated, as I expect, we will still need to address how to make a diagnosis. At this time, a CT angiogram of the chest is our only option, as a V/Q scan is not available to us. With respect to the patient's lower abdominal pain, she is tender across her entire lower abdomen, particularly to the right lower quadrant. I have ordered an obstetric ultrasound to evaluate the status of the fetus, along with an ultrasound of her lower abdomen to evaluate for such entities as appendicitis, however, ultrasound is notoriously poor in diagnosing appendicitis. Additional workup includes blood work and a urinalysis, however, these will also not rule out appendicitis. And less the ultrasounds convincingly demonstrate the cause of the patient's pain and tenderness, consideration will have to be given to a CT scan of her abdomen and pelvis to rule out appendicitis. The only other method available would be to take the patient to the operating room for laparoscopy. 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 09/29/19 17:05 The ABG attempt was a venous gas. The RT tech will reattempt after the patient returns from ultrasound. The patient reports minimal improvement in her chest pain following the GI cocktail. 09/29/19 18:07 Limited abdominal ultrasound is read by Dr. Carpio as: 1. Nonvisualized appendix. Obstetric ultrasound is read by Dr. Carpio as: 1. Single intrauterine fetus. Dates as noted above. 2. No complicating processes is seen by ultrasound at this time. The body of the report indicates a gestational age of 16w 4d, with a heart rate of 148 bpm. The patient is not orthostatic. 09/29/19 18:10 Notified by Terri CHRISTOPHER that an IV was unable to be obtained on the patient, but that she is able to take orals. I will order some oral [place] and Zofran. 09/29/19 19:05 The patient's CBC is remarkable for a WBC count elevated at 13.19, but with 0% bandemia. The remainder of her CBC is unremarkable. Her CMP is remarkable for a potassium slightly depressed at 3.3, and an anion gap elevated at 16.3 with a bicarbonate normal at 24. The remainder of her CMP is unremarkable. Her magnesium level is slightly depressed at 1.7. Her troponin is undetectably low. Her BNP is within normal limits at 26. Her TSH is within normal limits at 2.390. Her D-dimer is modestly elevated at 0.78. Her urinalysis is unremarkable. A repeat ABG was not performed. 09/29/19 19:[address] Bird at 19:06. We are in agreement that because the patient's D-dimer is only mildly elevated, a pulmonary embolus is not very likely. The patient's chest pain is likely due to GERD. We cannot, however, rule out appendicitis. She recommended that I call the surgeon promotional marketing analyst to come and evaluate the patient. 09/29/19 19:[address] Real at 19:17. She would like me to order a chest x-ray , and she will come and evaluate the patient. 09/29/19 19:44 2-view chest radiograph appears to be grossly normal. The cardiac silhouette is within normal limits. No pulmonary vascular congestion. No pleural effusions. No focal infiltrate. No pneumothorax. Formal read per the Radiologist pending. 09/29/19 19:47 Dr. Real is evaluating the patient presently. 09/29/19 20:09 Dr. Real has evaluated the patient and finds that she does have peritoneal signs. She is debating having the patient undergo a CT scan of her abdomen and pelvis versus take her to the operating room, however, she feels that the anesthesia would be a more immediate and direct threat to the patient's than a CT scan. She would like to obtain an MRI, however, MRI is unavailable until Tuesday or possibly Tuesday. Dr. Real is going to admit the patient, likely start her on antibiotics, and observe her for a change in her condition. The patient will need an IV. Because our nurses were unable to obtain an IV earlier, they will likely call in anesthesia. Departure - Departure Time of Disposition: 20:11 Disposition: Refer to Observation Condition: Good Clinical Impression: Lower abdominal pain, and not yet delivered in second trimester - Discharge Information *PRESCRIPTION DRUG MONITORING PROGRAM REVIEWED*: Not Applicable *COPY OF PRESCRIPTION DRUG MONITORING REPORT IN PATIENT ALEXYS: Not Applicable Referrals: Jese Lawrence MD [Primary Care Provider] - Deann Bright PA-C [Physician Manufacturing Applications Engineer] - Forms: ED Department Discharge Sepsis Event Note - Evaluation Sepsis Screening Result: No Definite Risk - Focused Exam Vital Signs: Vital Signs Temp Pulse Resp BP Pulse Ox 09/29/19 15:37 36.6 C 115 H 12 132/94 H 100 Date Exam was Performed: 09/29/19 Time Exam was Performed: 20:12 - My Orders Last 24 Hours: My Active Orders 09/29/19 16:07 EKG Documentation Completion [RC] STAT Orthostatic Vital Signs [RC] STAT BLOOD GAS ARTERIAL [BG] Stat 09/29/19 16:10 Heart Rate [RC] Click to Edit 09/29/19 17:10 Influenza Vaccine Charge [RC] .DISCHARGE 09/29/19 19:24 Chest 2V [CR] Stat - Assessment/Plan Last 24 Hours: My Active Orders 09/29/19 16:07 EKG Documentation Completion [RC] STAT Orthostatic Vital Signs [RC] STAT BLOOD GAS ARTERIAL [BG] Stat 09/29/19 16:10 Heart Rate [RC] Click to Edit 09/29/19 17:10 Influenza Vaccine Charge [RC] .DISCHARGE 09/29/19 19:24 Chest 2V [CR] Stat
[2019-09-29] MEDS ORDERED: Ondansetron 4 MG/2 ML SDV IVPUSH ONE (17:14)
[2019-09-29] MEDS ORDERED: HYDROmorphone 0.5 MG/0.5 ML Syringe IVPUSH ONE (17:14)
[2019-09-29] MEDS ORDERED: FLU Vacc QS2019-20(6MOS+)/PF 60 MCG/0.5 ML SYRINGE IM ONE (17:15)
[2019-09-29] MEDS ORDERED: Sodium Chloride 0.9% 1,000 ML IV SCH (17:15)
--- NOTE | 2019-09-29 17:33 | US ---
Obstetrical ultrasound: Multiple real-time images were obtained transabdominally. Comparison: Previous obstetrical ultrasounds are available, most recent exam is 08/13/19. Dates: Current ultrasound: MIGUEL 03/11/20, gestational age 16 weeks 4 days Earliest ultrasound (07/23/19): MIGUEL 03/14/20, gestational age 16 weeks 1 day presentation: Cephalic Placenta: Anterior with no findings of placenta previa or abruption Amniotic fluid: Single largest pocket 3.6 cm Measurements: BPD: 3.45 cm - 16 weeks 5 days Head circumference: 12.70 cm - 16 weeks 3 days Abdominal circumference: 10.91 cm - 16 weeks 5 days Femur length: 2.12 cm - 16 weeks 2 days Estimated weight: 160 g (0 lbs. 6 oz.), estimated weight 70th percentile Heart rate: 148 bpm Maternal ovaries appear unremarkable. Impression: 1. Single intrauterine fetus. Dates as noted above. 2. No complicating process is seen by ultrasound at this time. Diagnostic code #1 Study was dictated in [place] Standard Time
--- NOTE | 2019-09-29 17:33 | US ---
Limited abdominal ultrasound: Multiple real-time images of the right lower abdomen were obtained. Technologist's note: Difficult due to body habitus Appendix is not visualized with certainty. No free fluid is seen. Impression: 1. Nonvisualized appendix. Diagnostic code #1 Study was dictated in [place] Standard Time
[2019-09-29] MEDS ORDERED: Acetaminophen/HYDROcodone 325-5 MG Tab PO STA (18:11)
[2019-09-29] MEDS ORDERED: Ondansetron 4 MG Tab.DIS PO ONE (18:12)
--- NOTE | 2019-09-29 20:11 | PCM.HP.2 ---
H&P History of Present Illness - General Date of Service: 09/29/19 Source of Information: Patient, Provider History Limitations: Reports: No Limitations - History of Present Illness Initial Comments - Free Text/Narative: The patient is a 19 y/o lady 16wk who presents with epigastric and RLQ abdominal pain. She reports having retrosternal and epigastric pain that preceded the onset of RLQ abdominal pain earlier today. she has a history of acid reflux and has had similar epigastric pain in the past. She has never experienced the RLQ pain before. She felt cold today. She also had nausea and vomiting earlier today and has had poor appetite. She has had more constipation during her . On presentation to ED, pt had negative workup completed for cardiac etiology. Abdominal Pain Score (Numeric/FACES): 8 - Related Data Allergies/Adverse Reactions: Allergies Allergy/AdvReac Type Severity Reaction Status Date / Time amoxicillin Allergy Rash Verified 09/29/19 15:37 tree nut [Pecans] Allergy Airway Verified 09/29/19 15:37 Tightness walnuts Allergy Airway Uncoded 09/29/19 15:37 Tightness Home Medications: Home Meds Pnv No.95/Ferrous Fum/Folic AC [ Vitamin Tablet] 1 tab PO DAILY [History] Past Medical History - Past Health History Medical/Surgical History: Denies Medical/Surgical History Respiratory History: Reports: Asthma Gastrointestinal History: Reports: GERD Genitourinary History: Reports: UTI, Recurrent 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 , 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 Other OB/BYN History: G 4 P 0 LMP 06/02 Psychiatric History: Reports: Anxiety (untreated), Depression (untreated) Endocrine/Metabolic History: Reports: Obesity/BMI 30+ Dermatologic History: Reports: Eczema - Past Surgical History GI Surgical History: Reports: Colonoscopy (x 1), EGD (x 1) Social & Family History - Family History Endocrine/Metabolic: Reports: Diabetes, type II Oncologic: Reports: Brain, Breast - Tobacco Use Smoking Status *Q: Former Smoker Used Tobacco, but Quit: Yes Month/Year Tobacco Last Used: August - Caffeine Use Caffeine Use: Reports: Coffee, Soda - Recreational Drug Use Recreational Drug Use: No - Living Situation & Occupation Living situation: Reports: Single, with Family (Parents) Occupation: Employed ([employer]) H&P Review of Systems - Review of Systems: Review Of Systems: See Below General: Denies: Fever HEENT: Denies: No Symptoms Pulmonary: Reports: Shortness of Breath Cardiovascular: Reports: Chest Pain Gastrointestinal: Reports: Abdominal Pain, Anorexia, Vomiting Genitourinary: Reports: No Symptoms Musculoskeletal: Reports: Back Pain Skin: Reports: Rash (eczema) Exam - Exam Exam: See Below - Vital Signs Vital Signs: Last Vital Signs Temp 36.6 C 09/29/19 15:37 Pulse 115 H 09/29/19 15:37 Resp 12 09/29/19 15:37 BP 132/94 H 09/29/19 15:37 Pulse Ox 100 09/29/19 15:37 Orthostatic Blood Pressure [ 106/71 Standing] Orthostatic Blood Pressure [ 122/70 Sitting] Orthostatic Blood Pressure [ 116/63 Supine] Weight: 103.873 kg - Exam Quality Assessment: No: Supplemental Oxygen General: Alert, Oriented HEENT: Conjunctiva Clear, EOMI Neck: Supple Lungs: Clear to Auscultation, Normal Respiratory Effort, Rub Cardiovascular: Regular Rhythm, Tachycardia GI/Abdominal Exam: Soft, Rebound (in RLQ), Tender (in epigastrium, periumbilical area and RLQ) Extremities: Normal Inspection, No Pedal Edema Peripheral Pulses: 2+: Dorsalis Pedis (L), Dorsalis Pedis (R) Skin: Warm, Dry, Intact, Rash (on lower extremities) Neurological: Cranial Nerves Intact Neuro Extensive - Mental Status: Normal Mood/Affect - Patient Data Lab Results Last 24 hrs: Laboratory Results - last 24 hr 09/29/19 09/29/19 09/29/19 Range/Units 16:26 16:26 16:26 WBC 13.19 H (3.98-10.04) K/mm3 RBC 4.32 (3.98-5.22) M/mm3 Hgb 12.9 (11.2-15.7) gm/dl Hct 38.9 (34.1-44.9) % MCV 90.0 (79.4-94.8) fl MCH 29.9 (25.6-32.2) pg MCHC 33.2 (32.2-35.5) g/dl RDW Std Deviation 42.8 (36.4-46.3) fL Plt Count 335 (182-369) K/mm3 MPV 9.6 (9.4-12.3) fl Neutrophils % (Manual) 68 H (40-60) % Band Neutrophils % 0 (0-10) % Lymphocytes % (Manual) 23 (20-40) % Atypical Lymphs % 0 % Monocytes % (Manual) 8 (2-10) % Eosinophils % (Manual) 1 (0.7-5.8) % Basophils % (Manual) 0 L (0.1-1.2) Toxic Granulation Few Platelet Estimate Adequate RBC Morph Comment Normal D-Dimer, Quantitative 0.78 H (0.19-0.50) mg/L Sodium 141 (136-145) mEq/L Potassium 3.3 L (3.5-5.1) mEq/L Chloride 104 (98-107) mEq/L Carbon Dioxide 24 (21-32) mEq/L Anion Gap 16.3 H (5-15) BUN 7 (7-18) mg/dL Creatinine 0.6 (0.55-1.02) mg/dL Est Cr Clr Drug Dosing 123.72 mL/min Estimated GFR (MDRD) > 60 (>60) mL/min BUN/Creatinine Ratio 11.7 L (14-18) Glucose 103 (74-106) mg/dL Calcium 9.2 (8.5-10.1) mg/dL Magnesium 1.7 L (1.8-2.4) mg/dl Total Bilirubin 0.3 (0.2-1.0) mg/dL AST 17 (15-37) U/L ALT 31 (14-59) U/L Alkaline Phosphatase 82 (46-116) U/L Troponin I < 0.017 (0.00-0.056) ng/mL NT-Pro-B Natriuret Pep (0-125) pg/mL Total Protein 7.1 (6.4-8.2) g/dl Albumin 3.3 L (3.4-5.0) g/dl Globulin 3.8 gm/dL Albumin/Globulin Ratio 0.9 L (1-2) TSH 3rd Generation 2.390 (0.516-4.13) uIU/mL Urine Color (Yellow) Urine Appearance (Clear) Urine pH (5.0-8.0) Ur Specific [place] (1.005-1.030) Urine Protein (Negative) Urine Glucose (UA) (Negative) Urine Ketones (Negative) Urine Occult Blood (Negative) Urine Nitrite (Negative) Urine Bilirubin (Negative) Urine Urobilinogen (0.2-1.0) Ur Leukocyte Esterase (Negative) Urine RBC (0-5) /hpf Urine WBC (0-5) /hpf Ur Squamous Epith Cells (0-5) /hpf Amorphous Sediment (NOT SEEN) /hpf Urine Bacteria (FEW) /hpf Urine Mucus (FEW) /hpf 09/29/19 09/29/19 Range/Units 16:26 18:45 WBC (3.98-10.04) K/mm3 RBC (3.98-5.22) M/mm3 Hgb (11.2-15.7) gm/dl Hct (34.1-44.9) % MCV (79.4-94.8) fl MCH (25.6-32.2) pg MCHC (32.2-35.5) g/dl RDW Std Deviation (36.4-46.3) fL Plt Count (182-369) K/mm3 MPV (9.4-12.3) fl Neutrophils % (Manual) (40-60) % Band Neutrophils % (0-10) % Lymphocytes % (Manual) (20-40) % Atypical Lymphs % % Monocytes % (Manual) (2-10) % Eosinophils % (Manual) (0.7-5.8) % Basophils % (Manual) (0.1-1.2) Toxic Granulation Platelet Estimate RBC Morph Comment D-Dimer, Quantitative (0.19-0.50) mg/L Sodium (136-145) mEq/L Potassium (3.5-5.1) mEq/L Chloride (98-107) mEq/L Carbon Dioxide (21-32) mEq/L Anion Gap (5-15) BUN (7-18) mg/dL Creatinine (0.55-1.02) mg/dL Est Cr Clr Drug Dosing mL/min Estimated GFR (MDRD) (>60) mL/min BUN/Creatinine Ratio (14-18) Glucose (74-106) mg/dL Calcium (8.5-10.1) mg/dL Magnesium (1.8-2.4) mg/dl Total Bilirubin (0.2-1.0) mg/dL AST (15-37) U/L ALT (14-59) U/L Alkaline Phosphatase (46-116) U/L Troponin I (0.00-0.056) ng/mL NT-Pro-B Natriuret Pep 26 (0-125) pg/mL Total Protein (6.4-8.2) g/dl Albumin (3.4-5.0) g/dl Globulin gm/dL Albumin/Globulin Ratio (1-2) TSH 3rd Generation (0.516-4.13) uIU/mL Urine Color Yellow (Yellow) Urine Appearance Cloudy H (Clear) Urine pH 7.5 (5.0-8.0) Ur Specific [place] 1.025 (1.005-1.030) Urine Protein Trace H (Negative) Urine Glucose (UA) Negative (Negative) Urine Ketones Negative (Negative) Urine Occult Blood Negative (Negative) Urine Nitrite Negative (Negative) Urine Bilirubin Negative (Negative) Urine Urobilinogen 1.0 (0.2-1.0) Ur Leukocyte Esterase Negative (Negative) Urine RBC 0-5 (0-5) /hpf Urine WBC 0-5 (0-5) /hpf Ur Squamous Epith Cells 5-10 H (0-5) /hpf Amorphous Sediment Many H (NOT SEEN) /hpf Urine Bacteria Few (FEW) /hpf Urine Mucus Not seen (FEW) /hpf Result Diagrams: 09/29/19 16:26 09/29/19 16:26 Sepsis Event Note - Evaluation Sepsis Screening Result: No Definite Risk - Focused Exam Vital Signs: Vital Signs Temp Pulse Resp BP Pulse Ox 09/29/19 15:37 36.6 C 115 H 12 132/94 H 100 Date Exam was Performed: 09/29/19 Time Exam was Performed: 21:04 *Q Meaningful Use (ADM) - VTE Risk Assess *Q Each Risk Factor Represents 1 Point: Minor Surgery Planned, or , Less than 1 Month, History of Unexplained Stillborn Infant, Recurrent Spontaneous Total Score 1 Point Risk Factors: 3 - Problem List (1) Lower abdominal pain SNOMED Code(s): 02134576 ICD Code: R10.30 - LOWER ABDOMINAL PAIN, UNSPECIFIED Status: Acute Current Visit: Yes (2) and not yet delivered in second trimester SNOMED Code(s): 14594699, 48963855 ICD Code: Z34.92 - ENCNTR FOR SUPRVSN OF NORMAL PREG, UNSP, SECOND TRIMESTER Status: Acute Current Visit: Yes Problem List Initiated/Reviewed/Updated: Yes Orders Last 24hrs: Active Orders 24 hr Category Date Time Status EKG Documentation Completion [RC] STAT Care 09/29/19 16:07 Active Heart Rate [RC] Click to Edit Care 09/29/19 16:10 Active Influenza Vaccine Charge [RC] .DISCHARGE Care 09/29/19 17:10 Active Orthostatic Vital Signs [RC] STAT Care 09/29/19 16:07 Active Chest 2V [CR] Stat Exams 09/29/19 19:24 Ordered BLOOD GAS ARTERIAL [BG] Stat Lab 09/29/19 16:07 Ordered Assessment/Plan Comment:: 19 y/o lady 16 wk with viable intrauterine . Pt has suspicion for appendicitis. Ultrasound was unrevealing. - Considered nonoperative management with IV antibiotics, but pt has a penicillin allergy which makes selection of abx regimens very difficult and I would not recommend the alternative regimens in . - Pt is very anxious about going to the OR unless it is confirmed necessary. Discussed inability to get MRI scan here and possible transfer to [facility] for continued imaging. She reports having no support system available and does not wish to leave [place]. Discussed that the alternative is CT scan here, and pt was agreeable with the understanding of risk of radiation to the fetus for development of malignancy later in life - Will determine the need for OR based on the CT findings. Lauryn Onofre MD General surgery - Mortality Measure Prognosis:: Good
--- NOTE | 2019-09-29 20:48 | CR ---
Chest: 2 views of the chest were obtained. Comparison: Prior chest x-ray of 09/28/16. Heart size and mediastinum are normal. Lungs are clear. Bony structures are unremarkable. Impression: 1. Nothing acute is seen on 2 view chest x-ray. Diagnostic code #1 Study was dictated in [place] Standard Time
--- NOTE | 2019-09-29 21:24 | PCM.PRNOTE ---
- Free Text/Narrative Note: Peripheral IV insertion under ultrasound guidance Called by WEB ASSISTANT's to help starting peripheral IV after several unsuccessful attempts by staffing director. 1 x attempt 22G IV catheter placement attempt in cephalic vein at lower right forearm, unsuccessful. 1 x attempt 18G IV catheter placed in the right median antebrachial vein. Good saline flush x 3. IV secured. IVF connected, good flow. Procedure start: 2044 Procedure end 2099 Chris Tadeo CRNA
[2019-09-29] MEDS ORDERED: Iopamidol 612 MG/ML 100 ML Bottle IVPUSH ONE (22:29)
[2019-09-29] MEDS ORDERED: Diatrizoate Meglumine/Diatrizoate Sodium 37% 120 ML Bottle PO ONE (22:29)
[2019-09-29] MEDS ORDERED: Sodium Chloride 0.9% 10 ML Syringe FLUSH PRN (22:29)
[2019-09-29] MEDS ORDERED: HYDROmorphone 0.5 MG/0.5 ML Syringe ONE (22:53)
[2019-09-29] MEDS ORDERED: HYDROmorphone 0.5 MG/0.5 ML Syringe IVPUSH STA (22:55)
[2019-09-29 23:30] VITALS: BP 117/69; PULSE 99
--- NOTE | 2019-09-30 09:38 | CT ---
CT abdomen and pelvis Technique: Multiple axial sections were obtained from above the dome of the diaphragm inferiorly through the pubic symphysis. Intravenous and oral contrast was utilized. Findings: Visualized lung bases show nothing acute. Liver contains no focal parenchymal abnormality. Spleen appears within normal limits. Gallbladder contains no calcified gallstones. Adrenal glands show no nodule. Pancreas is within normal limits. Kidneys show symmetric contrast enhancement without hydronephrosis or mass. Aorta shows no aneurysm. No retroperitoneal adenopathy or mesenteric abnormalities are seen. Single intrauterine fetus is identified. Appendix is visualized and is normal in size. No free fluid or inflammatory change is seen. Scattered mesenteric lymph nodes are seen which are believed to be within normal limits. Bone window settings were reviewed. No acute osseous finding is appreciated. Impression: 1. Single intrauterine fetus. 2. Appendix is visualized which is normal in size. 3. Nothing acute is appreciated on CT study of the abdomen and pelvis. Diagnostic code #1 This report was dictated in [place] Standard Time I agree with preliminary report from [facility], finalized on 09/30/19, 12:05 AM Central Time
== END 2019-09-29 23:24 | disposition other institution (70) ==
LOC: JD.ED 15:30
DX: O99.89 Other specified diseases and conditions complicating pregnancy, childbirth and the puerperium (principal); R10.31 Right lower quadrant pain; R10.32 Left lower quadrant pain; Z23 Encounter for immunization; Z3A.16 16 weeks gestation of pregnancy; Z88.1 Allergy status to other antibiotic agents; Z91.018 Allergy to other foods; Z87.891 Personal history of nicotine dependence
CPT/HCPCS: 36415; 71046; 74177; 76705; 76815; 80053; 81001; 83735; 83880; 84443; 84484; 85007; 85027; 85379; 90471; 90686; 93005; 96374; 99285; A9270; J1170; Q9963; Q9967; 93010; 99284; G0008

== ENCOUNTER → 2019-10-18 | Day surgery (SDC) | payer BC, MEDICAID ==
[~2019-10-18] MED LIST: Bupivacaine 0.5%/EPINEPHrine 1:200,000 50 ML MDV ONE; Clindamycin Phosphate 900 MG in Sodium Chloride 0.9% 100 ML IV ONE; Clindamycin Phosphate 900 MG/6 ML SDV ONE; Dextrose 5%-0.9% NaCl 1,000 ML IV SCH; HYDROmorphone 1 MG/ML Syringe IVPUSH ONE; Lidocaine 1% 2 ML ONE; Lidocaine 1% 4 ML ONE; Metoclopramide 10 MG/2 ML SDV IVPUSH ONE; Ondansetron 4 MG/2 ML SDV ONE; Propofol 200 MG/20 ML SDV ONE; Rocuronium 50 MG/5 ML Vial ONE; Sodium Chloride 0.9% 100 ML ONE; Vancomycin 2 GM in Sodium Chloride 0.9% 500 ML IV ONE; fentaNYL 250 MCG/5 ML SDV ONE; oxyCODONE 5 MG Tab PO SCH
--- NOTE | 2019-10-18 04:33 | EDM.PDOC ---
ED HPI GENERAL MEDICAL PROBLEM - General Chief Complaint: Skin Complaint Stated Complaint: PAINFUL CYST ON TAILBONE/19 WKS Time Seen by Provider: 10/18/19 04:27 Source of Information: Reports: Patient, RN Notes Reviewed - History of Present Illness INITIAL COMMENTS - FREE TEXT/NARRATIVE: 19-year-old female presents to the ED with severe painful lesions on both sides of her superior nuchal cleft for the last 4 days. She states started on the left side first but is spread to the right side as well. She cannot sit and hardly walk. She is also 19 weeks with EDC set at March 14, 2020. Is 7 para 0 and is had 3 spontaneous miscarriages. No complications related to . She has had no previous similar problems with abscesses or cysts in this area. . She is not known to be diabetic. H the pain currently is 8 or 9 out of 10 constant and throbbing and worse with touch. Pain is worsened a great deal over the last 24 hours. Last meal was approximately 2000 hrs. yesterday. No nausea or vomiting. Onset: Gradual Onset Date: 10/14/19 Duration: Day(s):, Constant, Getting Worse Location: Reports: Other ( superior aspect of the nuchal cleft bilaterally) Quality: Reports: Ache, Pressure, Throbbing Severity: Severe Improves with: Reports: None Worsens with: Reports: Other Context: Reports: Other (Continuous occurrence). 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 Sacral Pain Score (Numeric/FACES): 10 - Related Data Allergies Allergy/AdvReac Type Severity Reaction Status Date / Time amoxicillin Allergy Rash Verified 10/18/19 04:22 tree nut [Pecans] Allergy Airway Verified 10/18/19 04:22 Tightness walnuts Allergy Airway Uncoded 10/18/19 04:22 Tightness Home Meds: Home Meds Pnv No.95/Ferrous Fum/Folic AC [ Vitamin Tablet] 1 tab PO DAILY [History] oxyCODONE 5 mg PO Q4H PRN #10 tab 10/18/19 [Rx] Past Medical History - Past Health History Medical/Surgical History: Denies Medical/Surgical History Respiratory History: Reports: Asthma Gastrointestinal History: Reports: GERD Genitourinary History: Reports: UTI, Recurrent 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: Ectopic , Spontaneous Other [employer] HOUSE HELPER History: G 4 P 0 LMP 06/02 Psychiatric History: Reports: Anxiety (untreated), Depression (untreated) Endocrine/Metabolic History: Reports: Obesity/BMI 30+ Dermatologic History: Reports: Eczema - Past Surgical History GI Surgical History: Reports: Colonoscopy (x 1), EGD (x 1) Social & Family History - Family History Family Medical History: Noncontributory Endocrine/Metabolic: Reports: Diabetes, type II Oncologic: Reports: Brain, Breast - Caffeine Use Caffeine Use: Reports: Coffee, Soda - Living Situation & Occupation Living situation: Reports: Single, with Family (Parents) 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 Denies: Chills ( Perhaps a low-grade fever.) HEENT: Reports: No Symptoms Respiratory: Reports: No Symptoms Cardiovascular: Reports: No Symptoms Endocrine: Reports: Fatigue GI/Abdominal: Reports: No Symptoms : Reports: Frequency Musculoskeletal: Reports: No Symptoms Skin: Reports: Other (Ear pain superior aspect of the nuchal cleft bilaterally gradually worsening over the last 4 days due to pilonidal abscess formation) Neurological: Reports: No Symptoms Psychiatric: Reports: No Symptoms Hematologic/Lymphatic: Reports: No Symptoms Immunologic: Reports: No Symptoms ED EXAM, SKIN/RASH Exam: See Below Exam Limited By: No Limitations General Appearance: Alert, WD/WN, Moderate Distress, Other (Temperature is 37.1 heart rate at the bedside is 117 respiratory rate of 20 pulse oximetry is 99% on room air BP is 132/80. Of note the patient was examined with her Botox in the air and kneeling on the bed. She is unable to lie flat on the bed.) Eye Exam: Bilateral Eye: Normal Inspection Throat/Mouth: Normal Inspection, Normal Lips, Normal Oropharynx Head: Atraumatic, Normocephalic Neck: Normal Inspection, Supple, Non-Tender, Full Range of Motion. No: Lymphadenopathy (L), Lymphadenopathy (R) Respiratory/Chest: No Respiratory Distress, Lungs Clear, Normal Breath Sounds, No Accessory Muscle Use Cardiovascular: Normal Peripheral Pulses, Regular Rate, Rhythm, No Edema, No Gallop, No JVD, No Murmur, No Rub, Tachycardia (Only due to pain response) Peripheral Pulses: 3+: Posterior Tibial (L), Posterior Tibial (R), Dorsalis Pedis (L), Dorsalis Pedis (R) GI/Abdominal: Normal Bowel Sounds, Soft, Non-Tender, No Organomegaly, No Abnormal Bruit, Pelvis Stable, Other (Avid uterus just inferior to the umbilicus compatible with 19-week gestation.) Rectal (Female) Exam: Normal Exam Back Exam: Other (Patient has erythema and swelling of the superior nuchal cleft on both sides. Both sides are erythematous and very tender to touch. Ultrasound reveals that these are abscesses measuring approximately 2.5 to 3 cm in depth.) Extremities: Normal Inspection, Normal Range of Motion, Non-Tender Neurological: Alert, Oriented, CN II-XII Intact, Normal Cognition. No: Normal Gait Skin: Warm, Dry, Intact, Erythema, Increased Warmth (Erythematous swellings superior aspect of both sides of the nuchal cleft), Other (Extreme tenderness of abscesses. Each abscess is approximately 5 cm in length and 2.5 cm in width. ) Location, Skin: Other (. Aspect of the nuchal cleft bilaterally. There is no pointing of any abscess at this time) Characteristics: Confluent, Erythematous Associated features: Warmth, Tenderness, Swelling, Induration, Inflammation Course - Vital Signs Last Recorded V/S: Last Vital Signs Temp 37.0 C 10/18/19 09:00 Pulse 97 10/18/19 09:00 Resp 20 10/18/19 09:00 BP 110/68 10/18/19 09:00 Pulse Ox 98 10/18/19 09:00 - Orders/Labs/Meds Orders: Active Orders 24 hr Category Date Time Status Patient Status [ADT] Routine ADT 10/18/19 06:10 Active Ready for Discharge [RC] PER UNIT ROUTINE Care 10/18/19 08:12 Active Regular Diet [DIET] Diet 10/18/19 Breakfast Active Dextrose 5%-0.9% NaCl [Dextrose 5%-Normal Saline] 1,000 Med 10/18/19 06:00 Active ml IV ASDIRECTED Schedule Procedure [COMM] Stat Oth 10/18/19 06:10 Ordered Medication Orders Dextrose/Sodium Chloride (Dextrose 5%-Normal Saline) 1,000 mls @ 999 mls/hr IV ASDIRECTED ABE Last Admin: 10/18/19 06:49 Dose: 999 mls/hr Labs: Laboratory Tests 10/18/19 10/18/19 10/18/19 Range/Units 04:48 04:48 04:48 WBC 16.39 H (3.98-10.04) K/mm3 RBC 3.95 L (3.98-5.22) M/mm3 Hgb 11.8 (11.2-15.7) gm/dl Hct 35.6 (34.1-44.9) % MCV 90.1 (79.4-94.8) fl MCH 29.9 (25.6-32.2) pg MCHC 33.1 (32.2-35.5) g/dl RDW Std Deviation 42.4 (36.4-46.3) fL Plt Count 295 (182-369) K/mm3 MPV 9.5 (9.4-12.3) fl Neutrophils % (Manual) 62 H (40-60) % Band Neutrophils % 9 (0-10) % Lymphocytes % (Manual) 22 (20-40) % Atypical Lymphs % 0 % Monocytes % (Manual) 7 (2-10) % Eosinophils % (Manual) 0 L (0.7-5.8) % Basophils % (Manual) 0 L (0.1-1.2) Toxic Granulation 1+ slight Platelet Estimate Adequate Plt Morphology Comment Normal RBC Morph Comment Normal Sodium 140 (136-145) mEq/L Potassium 4.0 (3.5-5.1) mEq/L Chloride 105 (98-107) mEq/L Carbon Dioxide 21 (21-32) mEq/L Anion Gap 18.0 H (5-15) BUN 5 L (7-18) mg/dL Creatinine 0.5 L (0.55-1.02) mg/dL Est Cr Clr Drug Dosing 148.47 mL/min Estimated GFR (MDRD) > 60 (>60) mL/min BUN/Creatinine Ratio 10.0 L (14-18) Glucose 97 (74-106) mg/dL Hemoglobin A1c 5.20 (4.50-6.20) % Calcium 8.8 (8.5-10.1) mg/dL Total Bilirubin 0.2 (0.2-1.0) mg/dL AST 13 L (15-37) U/L ALT 21 (14-59) U/L Alkaline Phosphatase 89 (46-116) U/L C-Reactive Protein 5.8 H* (<1.0) mg/dL Total Protein 6.7 (6.4-8.2) g/dl Albumin 2.8 L (3.4-5.0) g/dl Globulin 3.9 gm/dL Albumin/Globulin Ratio 0.7 L (1-2) Urine Color (Yellow) Urine Appearance (Clear) Urine pH (5.0-8.0) Ur Specific Collins (1.005-1.030) Urine Protein (Negative) Urine Glucose (UA) (Negative) Urine Ketones (Negative) Urine Occult Blood (Negative) Urine Nitrite (Negative) Urine Bilirubin (Negative) Urine Urobilinogen (0.2-1.0) Ur Leukocyte Esterase (Negative) Urine RBC (0-5) /hpf Urine WBC (0-5) /hpf Ur Epithelial Cells (0-5) /hpf Urine Bacteria (FEW) /hpf Urine Mucus (FEW) /hpf 03/05/20 Range/Units 06:51 WBC (3.98-10.04) K/mm3 RBC (3.98-5.22) M/mm3 Hgb (11.2-15.7) gm/dl Hct (34.1-44.9) % MCV (79.4-94.8) fl MCH (25.6-32.2) pg MCHC (32.2-35.5) g/dl RDW Std Deviation (36.4-46.3) fL Plt Count (182-369) K/mm3 MPV (9.4-12.3) fl Neutrophils % (Manual) (40-60) % Band Neutrophils % (0-10) % Lymphocytes % (Manual) (20-40) % Atypical Lymphs % % Monocytes % (Manual) (2-10) % Eosinophils % (Manual) (0.7-5.8) % Basophils % (Manual) (0.1-1.2) Toxic Granulation Platelet Estimate Plt Morphology Comment RBC Morph Comment Sodium (136-145) mEq/L Potassium (3.5-5.1) mEq/L Chloride (98-107) mEq/L Carbon Dioxide (21-32) mEq/L Anion Gap (5-15) BUN (7-18) mg/dL Creatinine (0.55-1.02) mg/dL Est Cr Clr Drug Dosing mL/min Estimated GFR (MDRD) (>60) mL/min BUN/Creatinine Ratio (14-18) Glucose (74-106) mg/dL Hemoglobin A1c (4.50-6.20) % Calcium (8.5-10.1) mg/dL Total Bilirubin (0.2-1.0) mg/dL AST (15-37) U/L ALT (14-59) U/L Alkaline Phosphatase (46-116) U/L C-Reactive Protein (<1.0) mg/dL Total Protein (6.4-8.2) g/dl Albumin (3.4-5.0) g/dl Globulin gm/dL Albumin/Globulin Ratio (1-2) Urine Color Yellow (Yellow) Urine Appearance Slt cloudy H (Clear) Urine pH 6.0 (5.0-8.0) Ur Specific Collins > or = 1.030 (1.005-1.030) Urine Protein Negative (Negative) Urine Glucose (UA) 2+ H (Negative) Urine Ketones Negative (Negative) Urine Occult Blood Negative (Negative) Urine Nitrite Negative (Negative) Urine Bilirubin Negative (Negative) Urine Urobilinogen 0.2 (0.2-1.0) Ur Leukocyte Esterase Negative (Negative) Urine RBC 0-5 (0-5) /hpf Urine WBC 0-5 (0-5) /hpf Ur Epithelial Cells 10-20 H (0-5) /hpf Urine Bacteria Moderate H (FEW) /hpf Urine Mucus Few (FEW) /hpf Meds: Medications Generic Name Dose Route Start Last Admin Trade Name Freq PRN Reason Stop Dose Admin Dextrose/Sodium Chloride 1,000 mls @ 999 mls/hr 10/18/19 06:00 10/18/19 06:49 Dextrose 5%-Normal Saline IV 999 mls/hr ASDIRECTED ABE Administration Discontinued Medications Generic Name Dose Route Start Last Admin Trade Name Freq PRN Reason Stop Dose Admin Bupivacaine HCl/Epinephrine Bitart Confirm 10/18/19 06:42 10/18/19 07:42 Marcaine 0.5%/Epinephrine 1:200,000 Administered 10/18/19 06:43 20 ml Dose Administration 50 ml .ROUTE .STK-MED ONE Clindamycin Phosphate Confirm 10/18/19 04:41 10/18/19 04:56 Cleocin Administered 10/18/19 04:42 900 mg Dose Administration 900 mg .ROUTE .STK-MED ONE Fentanyl Confirm 10/18/19 06:38 Sublimaze Administered 10/18/19 06:39 Dose 250 mcg .ROUTE .STK-MED ONE Hydromorphone HCl 1 mg 10/18/19 04:33 10/18/19 04:54 Dilaudid IVPUSH 10/18/19 04:34 1 mg ONETIME ONE Administration Clindamycin Phosphate 900 mg/ 106 mls @ 200 mls/hr 10/18/19 04:37 10/18/19 05 :32 Sodium Chloride IV 10/18/19 05:08 200 mls/hr ONETIME ONE Administration Dextrose/Sodium Chloride 1,000 mls @ 150 mls/hr 10/18/19 04:45 10/18/19 04:57 Dextrose 5%-Normal Saline IV 150 mls/hr ASDIRECTED ABE Administration Vancomycin HCl 2 gm/ Sodium 500 mls @ 250 mls/hr 10/18/19 04:38 10/18/19 05: 28 Chloride IV 10/18/19 04:39 250 mls/hr ONETIME ONE Administration Sodium Chloride Confirm 10/18/19 04:43 10/18/19 04:56 Normal Saline Administered 10/18/19 04:44 100 mls/hr Dose Administration 100 mls @ as directed .ROUTE .STK-MED ONE Lidocaine HCl Confirm 10/18/19 06:37 Xylocaine-Mpf 1% Administered 10/18/19 06:38 Dose 4 mls @ as directed .ROUTE .STK-MED ONE Lidocaine HCl Confirm 10/18/19 07:29 Xylocaine-Mpf 1% Administered 10/18/19 07:30 Dose 2 mls @ as directed .ROUTE .STK-MED ONE Metoclopramide HCl 7.5 mg 10/18/19 04:34 10/18/19 04:51 Reglan IVPUSH 10/18/19 04:35 7.5 mg ONETIME ONE Administration Miscellaneous Medication Confirm 10/18/19 07:37 Phenylephrine 1 Mg/10 Ml-Ns Administered 10/18/19 07:38 Dose 1 mg IV .STK-MED ONE Miscellaneous Medication Confirm 10/18/19 08:00 Phenylephrine 1 Mg/10 Ml-Ns Administered 10/18/19 08:01 Dose 1 mg IV .STK-MED ONE Ondansetron HCl Confirm 10/18/19 06:37 Zofran Administered 10/18/19 06:38 Dose 4 mg .ROUTE .STK-MED ONE Ondansetron HCl Confirm 10/18/19 07:48 Zofran Administered 10/18/19 07:49 Dose 4 mg .ROUTE .STK-MED ONE Oxycodone HCl 5 mg 10/18/19 08:27 10/18/19 08:45 Oxycodone PO 10/18/19 10:00 5 mg ONETIME ABE Administration Propofol Confirm 10/18/19 06:38 Diprivan 20 Ml Administered 10/18/19 06:39 Dose 200 mg .ROUTE .STK-MED ONE Propofol Confirm 10/18/19 07:30 Diprivan 20 Ml Administered 10/18/19 07:31 Dose 200 mg .ROUTE .STK-MED ONE Rocuronium Osteen Confirm 10/18/19 06:44 Zemuron Administered 10/18/19 06:45 Dose 50 mg .ROUTE .STK-MED ONE - Radiology Interpretation Free Text/Narrative:: 19-year-old female who is 19 weeks gestation presents to the ED with gradually painful swollen areas superior aspect of the nuchal cleft bilaterally over the last 4 days. Exam reveals that she has abscesses forming at the superior aspect of the nuchal cleft bilaterally. There does appear to be 1 pilonidal pit in the nuchal cleft. Is never had similar problems. She is not known to be diabetic. Plan at this time will be to obtain surgical consultation at a more suitable hour. She will receive IV D5 normal saline at 250 mils per hour. She will be given vancomycin 2 g IV and clindamycin 900 mg IV both which are presumed safe in . Routine labs will be obtained without blood cultures as she is afebrile at this time. I will discuss case with Dr. Kaur on-call surgeon at around 0600 hrs. this morning. Patient has been n.p.o. since around 2000 hrs. yesterday. He will ill remain n.p.o. of course. Appears that she will need incision and drainage of both sides of her buttock with breakdown of loculated tissues. She is highly unlikely to be able to withstand this under local anesthetic. I will leave this up to the surgeon's discretion. - Re-Assessments/Exams Free Text/Narrative Re-Assessment/Exam: 10/18/19 05:21 Hematology is back and reveals an elevated white count at 16.39 differential is pending. Hemoglobin is slightly lower at 11.8 with hematocrit of 35.6. Platelet count 295,000. Sodium 140 with a potassium of 4.0 chloride 105 with a bicarb of 21. Anion gap is elevated at 18.0. BUN is 5 with a creatinine of 0.5. GFR is greater than 60. Glucose was 97 with a hemoglobin A1c of 5.0 calcium is 8.80. Liver function is normal C-reactive protein elevated at 5.8 total protein is 6.7 with albumin fraction of 2.8. Her labs therefore suggest some degree of systemic infection. 10/18/19 05:50 white blood cell differential reveals 62% neutrophils and 9% bands. Due to her anion gap being 18.0 her IV which is D5 normal saline will be open to full. 10/18/19 06:00 I have spoken with on-call surgeon Dr. Nnamdi Kaur and he will attend the patient in the ED. He wishes the OR to be called in for incision and drainage of pilonidal abscess. 10/18/19 06:50: Dr. Kaur is here and is making arrangements to take the patient to the OR for incision and drainage of abscesses which are suspect to be pilonidal in origin. Departure - Departure Time of Disposition: 06:54 Disposition: DC/Tfer to [facility] Access [facility] Condition: Fair Clinical Impression: Pilonidal abscess of cleft, Abscess, Second trimester - Discharge Information *PRESCRIPTION DRUG MONITORING PROGRAM REVIEWED*: Not Applicable *COPY OF PRESCRIPTION DRUG MONITORING REPORT IN PATIENT ALEXYS: Not Applicable Sepsis Event Note - Evaluation Sepsis Screening Result: No Definite Risk - Focused Exam Date Exam was Performed: 10/18/19 Time Exam was Performed: 21:59 - My Orders Last 24 Hours: My Active Orders 10/18/19 06:00 Dextrose 5%-0.9% NaCl [Dextrose 5%-Normal Saline] 1,000 ml IV ASDIRECTED 10/18/19 06:10 Patient Status [ADT] Routine Schedule Procedure [COMM] Stat - Assessment/Plan Last 24 Hours: My Active Orders 10/18/19 06:00 Dextrose 5%-0.9% NaCl [Dextrose 5%-Normal Saline] 1,000 ml IV ASDIRECTED 10/18/19 06:10 Patient Status [ADT] Routine Schedule Procedure [COMM] Stat
[2019-10-18 05:09] LABS: HEMOGLOBIN A1C 5.2 % (4.50-6.20)
--- NOTE | 2019-10-18 06:16 | PCM.PREANE ---
Preanesthetic Assessment - Procedure Proposed Procedure: I and D pilonidal cyst - Anesthesia/Transfusion/Family Hx Anesthesia History: Prior Anesthesia Without Reaction Family History of Anesthesia Reaction: No Transfusion History: No Prior Transfusion(s) Intubation History: Unknown - Review of Systems General: Fever (yesterday) Pulmonary: No Symptoms Gastrointestinal: No Symptoms (GERD: history of epigastric pain with negative cardiac workup noted), Nausea, Vomiting (last at 330am) Neurological: No Symptoms Other: Reports: Anxiety - Physical Assessment NPO Status Date: 10/17/19 NPO Status Time: 20:00 Vital Signs: Last Vital Signs Temp 37.1 C 10/18/19 04:17 Pulse 117 H 10/18/19 04:17 Resp 20 10/18/19 04:17 BP 132/80 10/18/19 04:17 Pulse Ox 99 10/18/19 04:17 Height: 1.6 m Weight: 104.326 kg ASA Class: 2E Mental Status: Alert & Oriented x3 Airway Class: Mallampati = 1 Dentition: Reports: Normal Dentition Thyro-Mental Finger Breadths: 3 Mouth Opening Finger Breadths: 3 ROM/Head Extension: Full Lungs: Clear to Auscultation, Normal Respiratory Effort Cardiovascular: Regular Rate, Regular Rhythm, No Murmurs - Lab Values: Laboratory Last Values WBC 16.39 K/mm3 (3.98-10.04) H 10/18/19 04:48 RBC 3.95 M/mm3 (3.98-5.22) L 10/18/19 04:48 Hgb 11.8 gm/dl (11.2-15.7) 10/18/19 04:48 Hct 35.6 % (34.1-44.9) 10/18/19 04:48 MCV 90.1 fl (79.4-94.8) 10/18/19 04:48 MCH 29.9 pg (25.6-32.2) 10/18/19 04:48 MCHC 33.1 g/dl (32.2-35.5) 10/18/19 04:48 RDW Std Deviation 42.4 fL (36.4-46.3) 10/18/19 04:48 Plt Count 295 K/mm3 (182-369) 10/18/19 04:48 MPV 9.5 fl (9.4-12.3) 10/18/19 04:48 Neutrophils % (Manual) 62 % (40-60) H 10/18/19 04:48 Band Neutrophils % 9 % (0-10) 10/18/19 04:48 Lymphocytes % (Manual) 22 % (20-40) 10/18/19 04:48 Atypical Lymphs % 0 % 10/18/19 04:48 Monocytes % (Manual) 7 % (2-10) 10/18/19 04:48 Eosinophils % (Manual) 0 % (0.7-5.8) L 10/18/19 04:48 Basophils % (Manual) 0 (0.1-1.2) L 10/18/19 04:48 Toxic Granulation 1+ slight 10/18/19 04:48 Platelet Estimate Adequate 10/18/19 04:48 Plt Morphology Comment Normal 10/18/19 04:48 RBC Morph Comment Normal 10/18/19 04:48 Sodium 140 mEq/L (136-145) 10/18/19 04:48 Potassium 4.0 mEq/L (3.5-5.1) 10/18/19 04:48 Chloride 105 mEq/L (98-107) 10/18/19 04:48 Carbon Dioxide 21 mEq/L (21-32) 10/18/19 04:48 Anion Gap 18.0 (5-15) H 10/18/19 04:48 BUN 5 mg/dL (7-18) L 10/18/19 04:48 Creatinine 0.5 mg/dL (0.55-1.02) L 10/18/19 04:48 Est Cr Clr Drug Dosing 148.47 mL/min 10/18/19 04:48 Estimated GFR (MDRD) > 60 mL/min (>60) 10/18/19 04:48 BUN/Creatinine Ratio 10.0 (14-18) L 10/18/19 04:48 Glucose 97 mg/dL (74-106) 10/18/19 04:48 Hemoglobin A1c 5.20 % (4.50-6.20) 10/18/19 04:48 Calcium 8.8 mg/dL (8.5-10.1) 10/18/19 04:48 Total Bilirubin 0.2 mg/dL (0.2-1.0) 10/18/19 04:48 AST 13 U/L (15-37) L 10/18/19 04:48 ALT 21 U/L (14-59) 10/18/19 04:48 Alkaline Phosphatase 89 U/L (46-116) 10/18/19 04:48 C-Reactive Protein 5.8 mg/dL (<1.0) H* 10/18/19 04:48 Total Protein 6.7 g/dl (6.4-8.2) 10/18/19 04:48 Albumin 2.8 g/dl (3.4-5.0) L 10/18/19 04:48 Globulin 3.9 gm/dL 10/18/19 04:48 Albumin/Globulin Ratio 0.7 (1-2) L 10/18/19 04:48 All labs reviewed and noted and within acceptable ranges to proceed with procedure. - Imaging/EKG Impressions: CXR: negative EKG: ST rate= 110 - Allergies Allergies/Adverse Reactions: Allergies Allergy/AdvReac Type Severity Reaction Status Date / Time amoxicillin Allergy Rash Verified 10/18/19 04:22 tree nut [Pecans] Allergy Airway Verified 10/18/19 04:22 Tightness walnuts Allergy Airway Uncoded 10/18/19 04:22 Tightness - Blood Blood Available: No - Anesthesia Plan Pre-Op Medication Ordered: None - Acknowledgements Anesthesia Type Planned: General Anesthesia Pt an Appropriate Candidate for the Planned Anesthesia: Yes Alternatives and Risks of Anesthesia Discussed w Pt/Guardian: Yes Pt/Guardian Understands and Agrees with Anesthesia Plan: Yes PreAnesthesia Questionnaire - Past Health History Medical/Surgical History: Denies Medical/Surgical History Respiratory History: Reports: Asthma Gastrointestinal History: Reports: GERD Genitourinary History: Reports: UTI, Recurrent [employer]IC History: Reports: Ectopic , Spontaneous : 4 (19 weeks) Para: 0 Other OB/BYN History: G 4 P 0 LMP 06/02 Psychiatric History: Reports: Anxiety (untreated), Depression (untreated) Endocrine/Metabolic History: Reports: Obesity/BMI 30+ Dermatologic History: Reports: Eczema - Past Surgical History GI Surgical History: Reports: Colonoscopy (x 1), EGD (x 1) - SUBSTANCE USE Smoking Status *Q: Former Smoker Tobacco Use Within Last Twelve Months: Cigarettes Second Hand Smoke Exposure: No Days Per Week of Alcohol Use: 0 Recreational Drug Use History: No - HOME MEDS Home Medications: Home Meds Pnv No.95/Ferrous Fum/Folic AC [ Vitamin Tablet] 1 tab PO DAILY [History] - CURRENT (IN HOUSE) MEDS Current Meds: Current Medications Dextrose/Sodium Chloride (Dextrose 5%-Normal Saline) 1,000 mls @ 999 mls/hr IV ASDIRECTED ABE Discontinued Medications Clindamycin Phosphate (Cleocin) Confirm Administered Dose 900 mg .ROUTE .STK- MED ONE Stop: 10/18/19 04:42 Last Admin: 10/18/19 04:56 Dose: 900 mg Hydromorphone HCl (Dilaudid) 1 mg IVPUSH ONETIME ONE Stop: 10/18/19 04:34 Last Admin: 10/18/19 04:54 Dose: 1 mg Clindamycin Phosphate 900 mg/ (Sodium Chloride) 106 mls @ 200 mls/hr IV ONETIME ONE Stop: 10/18/19 05:08 Last Admin: 10/18/19 05:32 Dose: 200 mls/hr Dextrose/Sodium Chloride (Dextrose 5%-Normal Saline) 1,000 mls @ 150 mls/hr IV ASDIRECTED [facility] Last Admin: 10/18/19 04:57 Dose: 150 mls/hr Vancomycin HCl 2 gm/ Sodium (Chloride) 500 mls @ 250 mls/hr IV ONETIME ONE Stop: 10/18/19 04:39 Last Admin: 10/18/19 05:28 Dose: 250 mls/hr Sodium Chloride (Normal Saline) Confirm Administered Dose 100 mls @ as directed .ROUTE .STK-MED ONE Stop: 10/18/19 04:44 Last Admin: 10/18/19 04:56 Dose: 100 mls/hr Metoclopramide HCl (Reglan) 7.5 mg IVPUSH ONETIME ONE Stop: 10/18/19 04:35 Last Admin: 10/18/19 04:51 Dose: 7.5 mg
--- NOTE | 2019-10-18 07:38 | PCM.HP.2 ---
H&P History of Present Illness - General Date of Service: 10/18/19 Admit Problem/Dx: Admission Diagnosis/Problem Admission Diagnosis/Problem Incision and drainage of abscess pilonidal abscess Source of Information: Patient History Limitations: Reports: No Limitations - History of Present Illness Initial Comments - Free Text/Narative: Patient is presenting with first episode of abscess just superior to the gluteal cleft. She first noticed this five days ago. She has no history of soft tissue abscess in the past. She is currently 19 weeks . Onset of Symptoms: Reports: Gradual Duration of Symptoms: Reports: Day(s): Sacral Pain Score (Numeric/FACES): 10 - Related Data Allergies/Adverse Reactions: Allergies Allergy/AdvReac Type Severity Reaction Status Date / Time amoxicillin Allergy Rash Verified 10/18/19 04:22 tree nut [Pecans] Allergy Airway Verified 10/18/19 04:22 Tightness walnuts Allergy Airway Uncoded 10/18/19 04:22 Tightness Home Medications: Home Meds Pnv No.95/Ferrous Fum/Folic AC [ Vitamin Tablet] 1 tab PO DAILY [History] Past Medical History - Past Health History Medical/Surgical History: Denies Medical/Surgical History Respiratory History: Reports: Asthma Gastrointestinal History: Reports: GERD Genitourinary History: Reports: UTI, Recurrent 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 , 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 Other OB/BYN History: G 4 P 0 LMP 06/02 Psychiatric History: Reports: Anxiety (untreated), Depression (untreated) Endocrine/Metabolic History: Reports: Obesity/BMI 30+ Dermatologic History: Reports: Eczema - Past Surgical History GI Surgical History: Reports: Colonoscopy (x 1), EGD (x 1) Social & Family History - Family History Family Medical History: Noncontributory Endocrine/Metabolic: Reports: Diabetes, type II Oncologic: Reports: Brain, Breast - Tobacco Use Smoking Status *Q: Former Smoker Second Hand Smoke Exposure: No - Caffeine Use Caffeine Use: Reports: Coffee, Soda - Alcohol Use Days Per Week of Alcohol Use: 0 - Recreational Drug Use Recreational Drug Use: No - Living Situation & Occupation Living situation: Reports: Single, with Family (Parents) 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) H&P Review of Systems - Review of Systems: Review Of Systems: See Below General: Reports: No Symptoms HEENT: Reports: No Symptoms Pulmonary: Reports: No Symptoms Cardiovascular: Reports: No Symptoms Gastrointestinal: Reports: No Symptoms Genitourinary: Reports: No Symptoms Musculoskeletal: Reports: No Symptoms Skin: Reports: Erythema, Lesions Psychiatric: Reports: No Symptoms Neurological: Reports: No Symptoms Hematologic/Lymphatic: Reports: No Symptoms Immunologic: Reports: No Symptoms Exam - Exam Exam: See Below - Vital Signs Vital Signs: Last Vital Signs Temp 37.1 C 10/18/19 04:17 Pulse 117 H 10/18/19 04:17 Resp 20 10/18/19 04:17 BP 132/80 10/18/19 04:17 Pulse Ox 99 10/18/19 04:17 Weight: 104.326 kg - Exam General: Alert, Oriented HEENT: Conjunctiva Clear Neck: Supple Lungs: Clear to Auscultation Cardiovascular: Regular Rate GI/Abdominal Exam: Soft (Female) Exam: Deferred Rectal (Female) Exam: Deferred Back Exam: Normal Inspection Extremities: Normal Inspection Skin: Warm, Dry, Other (abscess at superior aspect of gluteal cleft without visible pits or excessive hair) Neuro Extensive - Mental Status: Alert, Oriented x3 Neuro Extensive - Motor, Sensory, Reflexes: Normal Gait Psychiatric: Alert, Normal Affect - Patient Data Lab Results Last 24 hrs: Laboratory Results - last 24 hr 10/18/19 10/18/19 10/18/19 Range/Units 04:48 04:48 04:48 WBC 16.39 H (3.98-10.04) K/mm3 RBC 3.95 L (3.98-5.22) M/mm3 Hgb 11.8 (11.2-15.7) gm/dl Hct 35.6 (34.1-44.9) % MCV 90.1 (79.4-94.8) fl MCH 29.9 (25.6-32.2) pg MCHC 33.1 (32.2-35.5) g/dl RDW Std Deviation 42.4 (36.4-46.3) fL Plt Count 295 (182-369) K/mm3 MPV 9.5 (9.4-12.3) fl Neutrophils % (Manual) 62 H (40-60) % Band Neutrophils % 9 (0-10) % Lymphocytes % (Manual) 22 (20-40) % Atypical Lymphs % 0 % Monocytes % (Manual) 7 (2-10) % Eosinophils % (Manual) 0 L (0.7-5.8) % Basophils % (Manual) 0 L (0.1-1.2) Toxic Granulation 1+ slight Platelet Estimate Adequate Plt Morphology Comment Normal RBC Morph Comment Normal Sodium 140 (136-145) mEq/L Potassium 4.0 (3.5-5.1) mEq/L Chloride 105 (98-107) mEq/L Carbon Dioxide 21 (21-32) mEq/L Anion Gap 18.0 H (5-15) BUN 5 L (7-18) mg/dL Creatinine 0.5 L (0.55-1.02) mg/dL Est Cr Clr Drug Dosing 148.47 mL/min Estimated GFR (MDRD) > 60 (>60) mL/min BUN/Creatinine Ratio 10.0 L (14-18) Glucose 97 (74-106) mg/dL Hemoglobin A1c 5.20 (4.50-6.20) % Calcium 8.8 (8.5-10.1) mg/dL Total Bilirubin 0.2 (0.2-1.0) mg/dL AST 13 L (15-37) U/L ALT 21 (14-59) U/L Alkaline Phosphatase 89 (46-116) U/L C-Reactive Protein 5.8 H* (<1.0) mg/dL Total Protein 6.7 (6.4-8.2) g/dl Albumin 2.8 L (3.4-5.0) g/dl Globulin 3.9 gm/dL Albumin/Globulin Ratio 0.7 L (1-2) Urine Color (Yellow) Urine Appearance (Clear) Urine pH (5.0-8.0) Ur Specific Picher (1.005-1.030) Urine Protein (Negative) Urine Glucose (UA) (Negative) Urine Ketones (Negative) Urine Occult Blood (Negative) Urine Nitrite (Negative) Urine Bilirubin (Negative) Urine Urobilinogen (0.2-1.0) Ur Leukocyte Esterase (Negative) 10/18/19 Range/Units 06:51 WBC (3.98-10.04) K/mm3 RBC (3.98-5.22) M/mm3 Hgb (11.2-15.7) gm/dl Hct (34.1-44.9) % MCV (79.4-94.8) fl MCH (25.6-32.2) pg MCHC (32.2-35.5) g/dl RDW Std Deviation (36.4-46.3) fL Plt Count (182-369) K/mm3 MPV (9.4-12.3) fl Neutrophils % (Manual) (40-60) % Band Neutrophils % (0-10) % Lymphocytes % (Manual) (20-40) % Atypical Lymphs % % Monocytes % (Manual) (2-10) % Eosinophils % (Manual) (0.7-5.8) % Basophils % (Manual) (0.1-1.2) Toxic Granulation Platelet Estimate Plt Morphology Comment RBC Morph Comment Sodium (136-145) mEq/L Potassium (3.5-5.1) mEq/L Chloride (98-107) mEq/L Carbon Dioxide (21-32) mEq/L Anion Gap (5-15) BUN (7-18) mg/dL Creatinine (0.55-1.02) mg/dL Est Cr Clr Drug Dosing mL/min Estimated GFR (MDRD) (>60) mL/min BUN/Creatinine Ratio (14-18) Glucose (74-106) mg/dL Hemoglobin A1c (4.50-6.20) % Calcium (8.5-10.1) mg/dL Total Bilirubin (0.2-1.0) mg/dL AST (15-37) U/L ALT (14-59) U/L Alkaline Phosphatase (46-116) U/L C-Reactive Protein (<1.0) mg/dL Total Protein (6.4-8.2) g/dl Albumin (3.4-5.0) g/dl Globulin gm/dL Albumin/Globulin Ratio (1-2) Urine Color Yellow (Yellow) Urine Appearance Slt cloudy H (Clear) Urine pH 6.0 (5.0-8.0) Ur Specific Picher > or = 1.030 (1.005-1.030) Urine Protein Negative (Negative) Urine Glucose (UA) 2+ H (Negative) Urine Ketones Negative (Negative) Urine Occult Blood Negative (Negative) Urine Nitrite Negative (Negative) Urine Bilirubin Negative (Negative) Urine Urobilinogen 0.2 (0.2-1.0) Ur Leukocyte Esterase Negative (Negative) Result Diagrams: 10/18/19 04:48 10/18/19 04:48 Sepsis Event Note - Evaluation Sepsis Screening Result: No Definite Risk - Focused Exam Vital Signs: Vital Signs Temp Pulse Resp BP Pulse Ox 10/18/19 04:17 37.1 C 117 H 20 132/80 99 Date Exam was Performed: 10/18/19 Time Exam was Performed: 07:32 *Q Meaningful Use (ADM) - VTE Risk Assess *Q Each Risk Factor Represents 1 Point: Minor Surgery Planned Total Score 1 Point Risk Factors: 1 Problem List Initiated/Reviewed/Updated: Yes Orders Last 24hrs: Active Orders 24 hr Category Date Time Status Patient Status [ADT] Routine ADT 10/18/19 06:10 Active URINALYSIS W/MICROSCOPIC [UA W/MICROSCOPIC] [URIN] Stat Lab 10/18/19 06:51 Results Dextrose 5%-0.9% NaCl [Dextrose 5%-Normal Saline] 1,000 Med 10/18/19 06:00 Active ml IV ASDIRECTED Schedule Procedure [COMM] Stat Oth 10/18/19 06:10 Ordered Medication Orders Dextrose/Sodium Chloride (Dextrose 5%-Normal Saline) 1,000 mls @ 999 mls/hr IV ASDIRECTED [facility] Last Admin: 10/18/19 06:49 Dose: 999 mls/hr Assessment/Plan Comment:: pilonidal abscess- plan for incision and drainage now. - Mortality Measure Prognosis:: Good
--- NOTE | 2019-10-18 08:15 | PCM48HPAN ---
Post Anesthesia Note - EVALUATION WITHIN 48HRS OF ANESTHETIC Vital Signs in Normal Range: Yes Patient Participated in Evaluation: Yes Respiratory Function Stable: Yes Airway Patent: Yes Cardiovascular Function Stable: Yes Hydration Status Stable: Yes Pain Control Satisfactory: Yes Nausea and Vomiting Control Satisfactory: Yes Mental Status Recovered: Yes Vital Signs: Last Vital Signs Temp 98.7 F 10/18/19 08:05 Pulse 106 H 10/18/19 08:05 Resp 18 10/18/19 08:05 BP 123/66 10/18/19 08:05 Pulse Ox 97 10/18/19 08:05
--- NOTE | 2019-10-18 08:18 | PCM.PRNOTE ---
- Free Text/Narrative Note: Date: 10/18/2019 Operation: incision and drainage of pilonidal abscess Surgeon: Nnamdi Kaur MD EBL: minimal Pre-op antibiotics: 900 mg clindmycin IV, 2 g vancomycin IV Specimens: none Cultures: no cultures obtained Findings: indurated, erythematous area superior to the gluteal cleft overlying the sacrum, minimal fluctuance appreciated, lesion spanned the midline. Approximately 20 cc of pus with short black hairs drained. A 1/4 in. Royal drain was placed and secured. Detailed Report: The patient was taken to the operating room and placed in left lateral decubitus position. Timeout was performed, and monitored anesthesia care was initiated. The gluteal area was prepped with iodine and draped in usual fashion. A total of 20 cc 0.5% Marcaine with epinephrine was injected intradermally over the site of the lesion. The scalpel was used to make a longitudinal incision over the most fluctuant area. The incision measured approximately 3 cm. A hemostat was used to break up loculations, and a moderate amount of pus was drained from this incision site on the left side. A counterincision, similar in size, was made on the right side, and hemostat was used to break up loculations and additional pus was drained. There was noted small hair fragments within the purulent fluid. The wound was then thoroughly irrigated. Hemostasis was satisfactory, and 1/4 inch Royal was placed through both incisions and secured as a loop with 2-0 nylon suture. A small amount of moistened Kerlix was packed into both wound sites, and the wound was then dressed with folded Kerlix and ABD pad and silk tape. The patient tolerated the procedure well. Nnamdi Kaur MD General Surgery
[2019-10-18 09:05] VITALS: BP 110/68; PULSE 97
== END | disposition home or self-care (01) ==
LOC: JD.ED 04:08 → JD.SDS 06:11
PROVIDERS: ATTEND Surgery
DX: O99.712 Diseases of the skin and subcutaneous tissue complicating pregnancy, second trimester (principal); L05.01 Pilonidal cyst with abscess; O99.342 Other mental disorders complicating pregnancy, second trimester; F41.8 Other specified anxiety disorders; Z3A.19 19 weeks gestation of pregnancy; Z91.018 Allergy to other foods; Z87.891 Personal history of nicotine dependence; Z88.1 Allergy status to other antibiotic agents
CPT/HCPCS: 10080; 36415; 80053; 81001; 83036; 85007; 85027; 86140; 96361; 96365; 96368; 99284; A9270; J1170; J2001; J2370; J2405; J2704; J2765; J3010; J3370; J3490; J7040; J7042; J7050; 00300

== ENCOUNTER 2019-11-29 07:31 | Day surgery (SDC) | payer BC, MEDICAID ==
[2019-11-29] MEDS ORDERED: HYDROmorphone 0.5 MG/0.5 ML Syringe IVPUSH ONE (08:06)
[2019-11-29] MEDS ORDERED: Sodium Chloride 0.9% 10 ML Syringe FLUSH PRN (08:06)
[2019-11-29] MEDS ORDERED: Lactated Ringers 1,000 ML IV SCH (08:15)
--- NOTE | 2019-11-29 08:15 | PCM.PREANE ---
Preanesthetic Assessment - Anesthesia/Transfusion/Family Hx Anesthesia History: Prior Anesthesia Without Reaction Transfusion History: No Prior Transfusion(s) Intubation History: Unknown - Review of Systems General: Weakness Pulmonary: No Symptoms Cardiovascular: No Symptoms Gastrointestinal: No Symptoms Neurological: No Symptoms Other: Reports: Anxiety - Physical Assessment NPO Status Date: 11/28/19 NPO Status Time: 23:25 Vital Signs: Last Vital Signs Temp 96.7 F L 11/29/19 07:35 Pulse 116 H 11/29/19 07:35 Resp 20 11/29/19 07:35 BP 112/58 L 11/29/19 07:35 Pulse Ox 96 11/29/19 07:35 Height: 1.6 m Weight: 104.326 kg ASA Class: 2E Mental Status: Alert & Oriented x3 Airway Class: Mallampati = 1 Thyro-Mental Finger Breadths: 3 Mouth Opening Finger Breadths: 3 ROM/Head Extension: Full Lungs: Clear to Auscultation, Normal Respiratory Effort Cardiovascular: Regular Rate, Regular Rhythm - Allergies Allergies/Adverse Reactions: Allergies Allergy/AdvReac Type Severity Reaction Status Date / Time amoxicillin Allergy Rash Verified 11/29/19 07:39 tree nut [Pecans] Allergy Airway Verified 11/29/19 07:39 Tightness walnuts Allergy Airway Uncoded 11/29/19 07:39 Tightness - Acknowledgements Anesthesia Type Planned: General Anesthesia, MAC Pt an Appropriate Candidate for the Planned Anesthesia: Yes Alternatives and Risks of Anesthesia Discussed w Pt/Guardian: Yes Pt/Guardian Understands and Agrees with Anesthesia Plan: Yes PreAnesthesia Questionnaire - Past Health History Medical/Surgical History: Denies Medical/Surgical History HEENT History: Reports: Impaired Vision Other HEENT History: wears eyeglasses. 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 Other OB/BYN History: G 4 P 0 LMP 06/02 Neurological History: Reports: Concussion Psychiatric History: Reports: Anxiety, Depression Endocrine/Metabolic History: Reports: Obesity/BMI 30+ Dermatologic History: Reports: Eczema - Infectious Disease History Infectious Disease History: Reports: Chicken Pox - Past Surgical History GI Surgical History: Reports: Colonoscopy, EGD - SUBSTANCE USE Smoking Status *Q: Never Smoker Second Hand Smoke Exposure: No Recreational Drug Use History: No - HOME MEDS Home Medications: Home Meds Pnv No.95/Ferrous Fum/Folic AC [ Vitamin Tablet] 1 tab PO DAILY [History] oxyCODONE 5 mg PO Q4H PRN #10 tab 10/22/19 [Rx] - CURRENT (IN HOUSE) MEDS Current Meds: Current Medications Lactated Ringer's (Ringers, Lactated) 1,000 mls @ 100 mls/hr IV ASDIRECTED ABE Sodium Chloride (Saline Flush) 10 ml FLUSH ASDIRECTED PRN PRN Reason: Keep Vein Open Discontinued Medications Hydromorphone HCl (Dilaudid) 0.5 mg IVPUSH ONETIME ONE Stop: 11/29/19 08:07
--- NOTE | 2019-11-29 08:33 | EDM.PDOC ---
ED HPI GENERAL MEDICAL PROBLEM - General Chief Complaint: Skin Complaint Stated Complaint: CYST PAIN ON TAIL BONE 25WKS Time Seen by Provider: 11/29/19 07:42 Source of Information: Reports: Patient History Limitations: Reports: No Limitations - History of Present Illness INITIAL COMMENTS - FREE TEXT/NARRATIVE: The patient presents with buttock pain. She had a pilonidal cyst over a month ago and had it surgically dealt with by Dr Kaur. She was doing good until last . She started to have more pain. The pain got progressively worse and now it is severe. She has no fever or chills. She is 25 weeks gestation and G4 AB3. She has no cough, congestion, runny nose, sore throat, chest pain, shortness of breath, abdominal pain, nausea or vomiting. Onset: Gradual Duration: Week(s): (1) Location: Reports: Other (buttock) Quality: Reports: Sharp Severity: Severe Improves with: Reports: None Worsens with: Reports: None Associated Symptoms: Reports: No Other Symptoms Sacral Pain Score (Numeric/FACES): 10 - Related Data Allergies Allergy/AdvReac Type Severity Reaction Status Date / Time amoxicillin Allergy Rash Verified 11/29/19 07:39 tree nut [Pecans] Allergy Airway Verified 11/29/19 07:39 Tightness walnuts Allergy Airway Uncoded 11/29/19 07:39 Tightness Home Meds: Home Meds Pnv No.95/Ferrous Fum/Folic AC [ Vitamin Tablet] 1 tab PO DAILY [History] oxyCODONE 5 mg PO Q4H PRN #10 tab 10/22/19 [Rx] Past Medical History - Past Health History Medical/Surgical History: Denies Medical/Surgical History HEENT History: Reports: Impaired Vision Other HEENT History: wears eyeglasses. 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: G 4 P 0 LMP 06/02 Neurological History: Reports: Concussion Psychiatric History: Reports: Anxiety, Depression Endocrine/Metabolic History: Reports: Obesity/BMI 30+ Dermatologic History: Reports: Eczema - Infectious Disease History Infectious Disease History: Reports: Chicken Pox - Past Surgical History GI Surgical History: Reports: Colonoscopy, EGD Social & Family History - Family History Family Medical History: Noncontributory Endocrine/Metabolic: Reports: Diabetes, type II Oncologic: Reports: Brain, Breast - Tobacco Use Smoking Status *Q: Never Smoker Second Hand Smoke Exposure: No - Caffeine Use Caffeine Use: Reports: Coffee, Soda - Recreational Drug Use Recreational Drug Use: No - Living Situation & Occupation Living situation: Reports: Single, with Family (Parents) 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) ED ROS GENERAL - Review of Systems Review Of Systems: See Below Constitutional: Reports: No Symptoms HEENT: Reports: No Symptoms Respiratory: Reports: No Symptoms Cardiovascular: Reports: No Symptoms Endocrine: Reports: No Symptoms GI/Abdominal: Reports: No Symptoms : Reports: No Symptoms Musculoskeletal: Reports: Other (Buttock pain) ED EXAM, SKIN/RASH Exam: See Below Exam Limited By: No Limitations General Appearance: Alert, No Apparent Distress Ears: Normal External Exam Nose: Normal Inspection Head: Atraumatic, Normocephalic Neck: Normal Inspection Respiratory/Chest: No Respiratory Distress, Lungs Clear, Normal Breath Sounds Cardiovascular: Regular Rate, Rhythm, No Edema, No Murmur GI/Abdominal: Soft, Non-Tender, Other (Gravid uterus above the umbilicus) Extremities: Normal Inspection Neurological: Alert, Oriented, No Motor/Sensory Deficits Course - Vital Signs Last Recorded V/S: Last Vital Signs Temp 96.7 F L 11/29/19 07:35 Pulse 116 H 11/29/19 07:35 Resp 20 11/29/19 07:35 BP 112/58 L 11/29/19 07:35 Pulse Ox 96 11/29/19 07:35 - Orders/Labs/Meds Orders: Active Orders 24 hr Category Date Time Status Peripheral IV Care [RC] . DIRECTED Care 11/29/19 08:06 Active Lactated Ringers [Ringers, Lactated] 1,000 ml Med 11/29/19 08:15 Active IV ASDIRECTED Sodium Chloride 0.9% [Saline Flush] Med 11/29/19 08:06 Active 10 ml FLUSH ASDIRECTED PRN Peripheral IV Insertion Adult [OM.PC] Routine Oth 11/29/19 08:06 Ordered Schedule Procedure [COMM] Routine Oth 11/29/19 08:06 Ordered Medication Orders Lactated Ringer's (Ringers, Lactated) 1,000 mls @ 100 mls/hr IV ASDIRECTED ABE Sodium Chloride (Saline Flush) 10 ml FLUSH ASDIRECTED PRN PRN Reason: Keep Vein Open Meds: Medications Generic Name Dose Route Start Last Admin Trade Name Fremary carmen PRN Reason Stop Dose Admin Lactated Ringer's 1,000 mls @ 100 mls/hr 11/29/19 08:15 Ringers, Lactated IV ASDIRECTED ABE Sodium Chloride 10 ml 11/29/19 08:06 Saline Flush FLUSH ASDIRECTED PRN Keep Vein Open Discontinued Medications Generic Name Dose Route Start Last Admin Trade Name Gopal PRN Reason Stop Dose Admin Hydromorphone HCl 0.5 mg 11/29/19 08:06 Dilaudid IVPUSH 11/29/19 08:07 ONETIME ONE - Re-Assessments/Exams Free Text/Narrative Re-Assessment/Exam: 11/29/19 08:33 I ordered an IV LR at 100mL/hr, dilaudid 0.5mg IV and I called Dr Kaur. He came to see the patient and he will take her to the OR. Departure - Departure Time of Disposition: 08:35 Disposition: DC/Tfer to [facility] Condition: Fair Clinical Impression: Pilonidal cyst with abscess Qualifiers: Weeks of gestation: 25 weeks Qualified Code(s): Z3A.25 - 25 weeks gestation of - Discharge Information Referrals: Olive Barber, [employer] [facility] [Primary Care Provider] - Sepsis Event Note - Evaluation Sepsis Screening Result: No Definite Risk - Focused Exam Vital Signs: Vital Signs Temp Pulse Resp BP Pulse Ox 11/29/19 07:35 96.7 F L 116 H 20 112/58 L 96 Date Exam was Performed: 11/29/19 Time Exam was Performed: 08:28 - My Orders Last 24 Hours: My Active Orders 11/29/19 08:06 Peripheral IV Care [RC] . DIRECTED Sodium Chloride 0.9% [Saline Flush] 10 ml FLUSH ASDIRECTED PRN Peripheral IV Insertion Adult [OM.PC] Routine 11/29/19 08:15 Lactated Ringers [Ringers, Lactated] 1,000 ml IV ASDIRECTED - Assessment/Plan Last 24 Hours: My Active Orders 11/29/19 08:06 Peripheral IV Care [RC] . DIRECTED Sodium Chloride 0.9% [Saline Flush] 10 ml FLUSH ASDIRECTED PRN Peripheral IV Insertion Adult [OM.PC] Routine 11/29/19 08:15 Lactated Ringers [Ringers, Lactated] 1,000 ml IV ASDIRECTED
[2019-11-29] MEDS ORDERED: Lidocaine 1% 4 ML ONE (08:41)
[2019-11-29] MEDS ORDERED: Propofol 200 MG/20 ML SDV ONE ×2 (08:41→09:29)
[2019-11-29] MEDS ORDERED: Ondansetron 4 MG/2 ML SDV ONE (08:42)
[2019-11-29] MEDS ORDERED: fentaNYL 100 MCG/2 ML SDV ONE (08:42)
--- NOTE | 2019-11-29 08:56 | PCM.HP.2 ---
H&P History of Present Illness - General Date of Service: 11/29/19 Admit Problem/Dx: Admission Diagnosis/Problem Admission Diagnosis/Problem Pilonidal cyst with abscess Source of Information: Patient History Limitations: Reports: No Limitations - History of Present Illness Other HPI/Comments: Ms. Montgomery is a 19 yo who was seen in the ER a few weeks ago for pilonidal abscess. This was incised and drained in the ER and a samson drain was placed. She did well for a few weeks but presents with recurrent abscess today- she was scheduled to come to clinic tomorrow but could not wait that long due to pain. Sacral Pain Score (Numeric/FACES): 2 - Related Data Allergies/Adverse Reactions: Allergies Allergy/AdvReac Type Severity Reaction Status Date / Time amoxicillin Allergy Rash Verified 11/29/19 07:39 tree nut [Pecans] Allergy Airway Verified 11/29/19 07:39 Tightness walnuts Allergy Airway Uncoded 11/29/19 07:39 Tightness Home Medications: Home Meds Pnv No.95/Ferrous Fum/Folic AC [ Vitamin Tablet] 1 tab PO DAILY [History] oxyCODONE 5 mg PO Q4H PRN #10 tab 10/22/19 [Rx] Past Medical History - Past Health History Medical/Surgical History: Denies Medical/Surgical History HEENT History: Reports: Impaired Vision Other HEENT History: wears eyeglasses. 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 Other OB/BYN History: G 4 P 0 LMP 06/02 Neurological History: Reports: Concussion Psychiatric History: Reports: Anxiety, Depression Endocrine/Metabolic History: Reports: Obesity/BMI 30+ Dermatologic History: Reports: Eczema - Infectious Disease History Infectious Disease History: Reports: Chicken Pox - Past Surgical History GI Surgical History: Reports: Colonoscopy, EGD Social & Family History - Family History Family Medical History: Noncontributory Endocrine/Metabolic: Reports: Diabetes, type II Oncologic: Reports: Brain, Breast - Tobacco Use Smoking Status *Q: Never Smoker Second Hand Smoke Exposure: No - Caffeine Use Caffeine Use: Reports: Coffee, Soda - Recreational Drug Use Recreational Drug Use: No - Living Situation & Occupation Living situation: Reports: Single, with Family (Parents) 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) H&P Review of Systems - Review of Systems: Review Of Systems: See Below Gastrointestinal: Reports: No Symptoms Genitourinary: Reports: No Symptoms Musculoskeletal: Reports: No Symptoms Skin: Reports: Erythema, Wound Exam - Exam Exam: See Below - Vital Signs Vital Signs: Last Vital Signs Temp 36.3 C 11/29/19 08:45 Pulse 100 11/29/19 08:45 Resp 20 11/29/19 08:45 BP 103/63 11/29/19 08:45 Pulse Ox 97 11/29/19 08:45 Weight: 104.326 kg - Exam General: Alert, Oriented HEENT: Conjunctiva Clear Neck: Supple Lungs: Clear to Auscultation, Normal Respiratory Effort Cardiovascular: Regular Rate GI/Abdominal Exam: Soft, Other (gravid uterus) (Female) Exam: Deferred Rectal (Female) Exam: Deferred Back Exam: Other (abscess at distal juan cleft without visible pit) Skin: Other (abscess, pilonidal) Neuro Extensive - Mental Status: Alert, Oriented x3 Sepsis Event Note - Evaluation Sepsis Screening Result: No Definite Risk - Focused Exam Vital Signs: Vital Signs Temp Pulse Resp BP Pulse Ox 11/29/19 08:45 36.3 C 100 20 103/63 97 11/29/19 07:35 35.9 C L 116 H 20 112/58 L 96 Date Exam was Performed: 11/29/19 Time Exam was Performed: 08:51 *Q Meaningful Use (ADM) - VTE Risk Assess *Q Each Risk Factor Represents 1 Point: Minor Surgery Planned Total Score 1 Point Risk Factors: 1 Problem List Initiated/Reviewed/Updated: Yes Orders Last 24hrs: Active Orders 24 hr Category Date Time Status Admission Status [Patient Status] [ADT] Routine ADT 11/29/19 08:36 Active Peripheral IV Care [RC] . DIRECTED Care 11/29/19 08:06 Active Lactated Ringers [Ringers, Lactated] 1,000 ml Med 11/29/19 08:15 Active IV ASDIRECTED Sodium Chloride 0.9% [Saline Flush] Med 11/29/19 08:06 Active 10 ml FLUSH ASDIRECTED PRN Peripheral IV Insertion Adult [OM.PC] Routine Oth 11/29/19 08:06 Ordered Schedule Procedure [COMM] Routine Oth 11/29/19 08:06 Ordered Medication Orders Lactated Ringer's (Ringers, Lactated) 1,000 mls @ 100 mls/hr IV ASDIRECTED ABE Last Admin: 11/29/19 08:25 Dose: 100 mls/hr Sodium Chloride (Saline Flush) 10 ml FLUSH ASDIRECTED PRN PRN Reason: Keep Vein Open Last Admin: 11/29/19 08:20 Dose: 10 ml Assessment/Plan Comment:: Recurrent pilonidal abscess. Plan for unroofing, curettage, application of phenol solution and wound packing. - Mortality Measure Prognosis:: Good
--- NOTE | 2019-11-29 09:05 | PCM.PRNOTE ---
- Free Text/Narrative Note: Date: 11/29/2019 Operation: excision of pilonidal disease Surgeon: Nnamdi Kaur MD Findings: recurrent pilonidal abscess Detailed Report: The patient was taken to the operating room and placed in left lateral decubitus position. The lower back and gluteal cleft were prepped and draped in sterile fashion. Time out was performed. Bilateral paramedian areas of swelling and fluctuance at the distal cleft were appreciated. A total of 50 cc 0.5 % marcaine with epinephrine was injected intradermally all around the site of disease. First, the fluctuant abscess were drained with a stab incision of the knife, and about 50 cc foul smelling pus was immediately drained. A vertical midline incision measuring 5 cm was made between the two areas, and a lacrimal probe was used to mariya the tracts from the head of the abscess back to the midline cavity. These were laid open using cautery. The skin at the edges of the wound was excised. A small inferior pit was probed as well and laid open in similar fashion. Loculations were broken up manually, and devitalized subcutaneous tissue was excised sharply with scissors. No significant nidus of hair was ever visualized. The wound bed was curetted, and a dilute phenol solution then applied. Hemostasis was achieved with cautery and manual pressure , and the wound was packed with moist gauze. A dressing of dry 4x4 gauze, ABD pad and mesh panties was placed. The patient tolerated the procedure well. Nnamdi Kaur MD General Surgery
[2019-11-29] MEDS: Bupivacaine 0.5%/EPINEPHrine 1:200,000 50 ML MDV ONE ×2 (09:14→09:33)
--- NOTE | 2019-11-29 10:24 | PCM48HPAN ---
Post Anesthesia Note - EVALUATION WITHIN 48HRS OF ANESTHETIC Vital Signs in Normal Range: Yes (still slightly tachycardiac) Patient Participated in Evaluation: Yes Respiratory Function Stable: Yes Airway Patent: Yes Cardiovascular Function Stable: Yes Hydration Status Stable: Yes Pain Control Satisfactory: Yes Nausea and Vomiting Control Satisfactory: Yes Mental Status Recovered: Yes Vital Signs: Last Vital Signs Temp 97.1 F 11/29/19 09:47 Pulse 106 H 11/29/19 10:15 Resp 19 11/29/19 10:15 BP 109/72 11/29/19 10:15 Pulse Ox 99 11/29/19 10:15
[2019-11-29] MEDS ORDERED: oxyCODONE 5 MG Tab PO SCH (10:30)
[2019-11-29 10:35] VITALS: BP 131/91; PULSE 123
== END 2019-11-29 11:10 | disposition home or self-care (01) ==
LOC: JD.ED 07:31 → JD.SDS 08:43
PROVIDERS: ATTEND Surgery
DX: O99.712 Diseases of the skin and subcutaneous tissue complicating pregnancy, second trimester (principal); L05.01 Pilonidal cyst with abscess; O99.512 Diseases of the respiratory system complicating pregnancy, second trimester; J45.909 Unspecified asthma, uncomplicated; O99.212 Obesity complicating pregnancy, second trimester; E66.9 Obesity, unspecified; O99.342 Other mental disorders complicating pregnancy, second trimester; F41.9 Anxiety disorder, unspecified; F32.9 Major depressive disorder, single episode, unspecified; O99.612 Diseases of the digestive system complicating pregnancy, second trimester; K21.9 Gastro-esophageal reflux disease without esophagitis; Z88.0 Allergy status to penicillin; Z91.018 Allergy to other foods; Z91.010 Allergy to peanuts; Z3A.25 25 weeks gestation of pregnancy
CPT/HCPCS: 11770; 96374; 99284; A9270; J1170; J2001; J2405; J2704; J3010; J3490; J7120; 00300

== ENCOUNTER 2020-03-09 19:12 | Inpatient (IN) | payer MEDICAID ==
[2020-03-09] MEDS ORDERED: Sodium Chloride 0.9% 10 ML Syringe FLUSH PRN (19:33)
[2020-03-09] MEDS ORDERED: Misoprostol 25 MCG (1/4 of 100 MCG) Tab VAG ONE (19:36)
[2020-03-09] MEDS ORDERED: Oxytocin/Lactated Ringers 10 UNIT/1,000 ML BAG IV SCH (19:45)
--- NOTE | 2020-03-09 20:51 | PCM.LDHP ---
L&D History of Present Illness - General Date of Service: 03/09/20 Admit Problem/Dx: Patient Status Order with Admit Dx/Problem 03/09/20 19:34 Patient Status [ADT] Routine Admission Diagnosis/Problem Admission Diagnosis/Problem 03/09/20 20:34 Ondina is a 20-year-old 4 para 0030 white female who is admitted for induction of labor on the evening of 03/09/2020 at 39-2/7 weeks gestational age with an MIGUEL of 03/14/2020. Source of Information: Patient History Limitations: Reports: No Limitations - History of Present Illness Introduction:: Ondina is a 20-year-old 4 para 0030 white female who is admitted for induction of labor on the evening of 03/09/2020 at 39-2/7 weeks gestational age with an MIGUEL of 03/14/2020. Procedure of induction of labor, its risks, benefits, limitations and follow-up along with the alternatives including allowing for natural onset of labor all discussed in detail with patient. She appears to understand and wishes to proceed. Presently patient's cervix is 2 cm, 70% effaced, -3 station, mid position, soft, baby in vertex presentation. heart tones reassuring. There are good accelerations and good variability with no decelerations. Patient is having some contractions every 3-5 minute basis. They appear very mild and not felt by the patient. MRI TECHNICIAN history: Ondina is a 4 para 0030. Her last menstrual period was somewhat irregular and uncertain. is dated by an early ultrasound done on 07/23/2019 at 6 and 37 weeks' gestational age and supported by multiple ultrasounds during the course of the rest the . 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 She had menarche at age 12. Cycles every 28 days. No control to time conception. She denies any sexually transmitted diseases. course: Patient was first seen at 6 and 37 weeks' gestational age. 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 Throughout the she was seen on a very regular basis. At approximately 26 weeks gestational age patient began having contractions and was transferred to [facility]. She is monitored there and was discharged back home. Since that time she is had aggressive [place] contractions off and on she's been seen on numerous occasions in L&D for contractions. The patient had a negative amnio sure on 01/23/2020. She had a positive fibronectin on 12/18/2019. She had used some nifedipine on occasion to reduce the frequency of contractions to allow her to rest. Patient's weight gain during the course of was from 223.6 pounds up to 266 pounds for a 33 pound gain. Her fundal height growth has been ahead of schedule. Patient's last documented ultrasound on 02/21/2020 showed growth at 57th percentile with weight at 7 lbs. 3 oz. Risk factors for the include: History of contractions, obesity with BMI of 48, history of depression, history of a hemoglobin A1c of 6.0, history of smoking in . She did receive betamethasone at 26 weeks gestational age and this was repeated at 31 weeks gestational age. Laboratory testing and shows blood to be O+ with negative antibody screening. First labs showed a hemoglobin of 13.7 g/dL with platelets of 362,000. She is rubella immune. RPR is nonreactive. Urine culture was negative. Hepatitis B surface antigen and HIV assays were both negative. Gonorrhea and chlamydia tests were both negative. Her 1 hour GTT was elevated at 139. Patient did not tolerate three-hour GTT is a hemoglobin A1c was done and returned at 6.0%. Second trimester hemoglobin was 11.5 g/dL and platelets are 377,000. Her group B strep screen was negative. Allergies: 1 Amoxicillin which causes hives and rash 2. Tree nuts Medications: 1. Albuterol sulfate inhaler use 2 puffs 4 times a day when necessarypatient is not use much during this 2. vitamins 1 daily 3. Prilosec 20 mg by mouth daily when necessary for GERD. Past medical history: 1. History pilonidal cyst with abscess 2. History of luteal phase deficiency with progesterone supplementation early in this . 3. Asthma 4. Depression has been on sertraline Past surgical history: 1. Colonoscopy age 16 Family history: Mother is alive and well with a history of miscarriage. Father is alive and has high blood pressure, high cholesterol and was recently diagnosed with diabetes and is presently on medication. 2 sisters both alive and well. Older sister with history of miscarriages 3. Paternal grandmother is alive but has a history of breast cancer. No other known family history of cancer, bleeding or clotting disorders, anesthesia-related issues. Reports that her grandmother, mother and older sister all had deliveries. Social history: Patient is single. Her significant other is Jacob Simpson. She does not use any significant most alcohol, drugs or tobacco. She quit smoking during the course of the . 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 She has some high school education. She lives in [place], [place]. Review of systems: In general patient has no complaints. He has had recurrent contractions throughout the . Is uncomfortable with late body habitus changes. No significantly with her increased weight Skin: Negative Lungs: No infectious symptoms or shortness of breath Cardiovascular: No chest pain or exercise intolerance Breasts: No lumps, changes in size, pain, dimpling, discharge or axillary or supraclavicular concerns. GI: Negative : body habitus changes. Musculoskeletal: Negative Neurological: Negative Physical exam: In general the patient is well-developed, well-nourished, pleasant, obese female of stated age in no acute distress. Body mass index is 48. Height is 5 feet 3. First weight was 2023.6 pounds. Weight on last evaluation in clinic on 03/06/2020 was 266.4 pounds. Fundal height at that time was 42.5 cm and heart rate was 136. Her blood pressure is 124/76. Skin is warm dry without lesions. HEENT, neck and back within normal limits. Lungs are clear with good breath sounds in all lung rivas. Cardiovascular exam shows regular and rhythm without murmurs. Abdomen is gravid with fundal height consistent with 42.5 cm on last evaluation clinic. Baby in vertex presentation. Genital per bimanual shows cervix to be 2 cm dilated, 70% effaced, soft, -3 station, mid position, cephalic presentation. Extremities and neurological exam are grossly within normal limits with the exception of trace edema in bilateral lower extremities.. - Related Data Allergies/Adverse Reactions: Allergies Allergy/AdvReac Type Severity Reaction Status Date / Time amoxicillin Allergy Rash Verified 03/09/20 19:22 tree nut [Pecans] Allergy Airway Verified 03/09/20 19:22 Tightness walnut Allergy Airway Verified 03/09/20 19:22 Tightness Home Medications: Home Meds Pnv No.95/Ferrous Fum/Folic AC [ Vitamin Tablet] 1 tab PO DAILY 02/18/19 [History] Omeprazole Magnesium [Prilosec] 10 mg PO DAILY 03/09/20 [History] Past Medical History - Past Health History Medical/Surgical History: Denies Medical/Surgical History HEENT History: Reports: Impaired Vision Other HEENT History: wears eyeglasses. Respiratory History: Reports: Asthma Gastrointestinal History: Reports: GERD Genitourinary History: Reports: UTI, Recurrent MRI TECHNICIAN History: Reports: , Spontaneous Other OB/BYN History: G 4 P 0 LMP 06/02 Neurological History: Reports: Concussion Psychiatric History: Reports: Anxiety, Depression Endocrine/Metabolic History: Reports: Obesity/BMI 30+ Dermatologic History: Reports: Eczema - Infectious Disease History Infectious Disease History: Reports: Chicken Pox - Past Surgical History GI Surgical History: Reports: Colonoscopy, EGD Social & Family History - Family History Family Medical History: Noncontributory Endocrine/Metabolic: Reports: Diabetes, type II Oncologic: Reports: Brain, Breast - Caffeine Use Caffeine Use: Reports: Coffee, Soda - Living Situation & Occupation Living situation: Reports: Single, with Family (Parents) 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) H&P Review of Systems - Review of Systems: Review Of Systems: See Below L&D Exam - Exam Exam: See Below - Vital Signs Vital Signs: Last Vital Signs Temp 36.7 C 03/09/20 19:34 Pulse 105 H 03/09/20 19:34 Resp 16 03/09/20 19:34 BP 95/75 03/09/20 19:34 Pulse Ox 94 L 03/09/20 19:34 Weight: 122.924 kg - Patient Data Lab Results Last 24 hrs: Laboratory Results - last 24 hr 03/09/20 Range/Units 20:05 WBC 12.37 H (3.98-10.04) K/mm3 RBC 4.21 (3.98-5.22) M/mm3 Hgb 12.2 (11.2-15.7) gm/dl Hct 37.6 (34.1-44.9) % MCV 89.3 (79.4-94.8) fl MCH 29.0 (25.6-32.2) pg MCHC 32.4 (32.2-35.5) g/dl RDW Std Deviation 47.1 H (36.4-46.3) fL Plt Count 324 (182-369) K/mm3 MPV 10.4 (9.4-12.3) fl Neut % (Auto) 72.6 H (34.0-71.1) % Lymph % (Auto) 16.2 L (19.3-51.7) % Aurora % (Auto) 9.1 (4.7-12.5) % Eos % (Auto) 1.1 (0.7-5.8) Baso % (Auto) 0.2 (0.1-1.2) % Neut # (Auto) 8.99 H (1.56-6.13) K/mm3 Lymph # (Auto) 2.00 (1.18-3.74) K/mm3 Aurora # (Auto) 1.13 H (0.24-0.36) K/mm3 Eos # (Auto) 0.13 (0.04-0.36) K/mm3 Baso # (Auto) 0.02 (0.01-0.08) K/mm3 Result Diagrams: 03/09/20 20:05 Problem List Initiated/Reviewed/Updated: Yes Orders Last 24hrs: Active Orders 24 hr Category Date Time Status Patient Status [ADT] Routine ADT 03/09/20 19:34 Active Activity as Tolerated [RC] PFP Care 03/09/20 19:34 Active Antiembolic Devices [RC] .Routine Care 03/09/20 19:35 Active Communication Order [RC] ASDIRECTED Care 03/09/20 19:34 Active Heart Tones [RC] ASDIRECTED Care 03/09/20 19:34 Active Non Stress Test [RC] PER UNIT ROUTINE Care 03/09/20 19:34 Active Notify Provider [RC] PFP Care 03/09/20 19:34 Active Notify Provider [RC] PRN Care 03/09/20 19:34 Active Peripheral IV Care [RC] . DIRECTED Care 03/09/20 19:34 Active VTE/DVT Education [RC] PER UNIT ROUTINE Care 03/09/20 19:35 Active Vital Signs [RC] PER UNIT ROUTINE Care 03/09/20 19:34 Active Regular Diet [DIET] Diet 03/09/20 Dinner Active CORONAVIRUS COVID-19 PCR PHL Stat Lab 03/09/20 19:36 Ordered RAPID PLASMA REAGIN,RPR [CHEM] Routine Lab 03/09/20 20:05 Received TYPE AND SCREEN [BBK] Stat Lab 03/09/20 20:05 Received Lactated Ringers [Ringers, Lactated] 1,000 ml Med 03/09/20 19:45 Active IV ASDIRECTED Nalbuphine [Nubain] Med 03/09/20 19:33 Active 10 mg IVPUSH Q2H PRN Ondansetron [Zofran] Med 03/09/20 19:33 Active 4 mg IVPUSH Q4H PRN Oxytocin/Lactated Ringers [Pitocin in LR 10 Units/1,000 Med 03/09/20 19:45 Active ML] 10 unit in 1,000 ml IV .CONTINUOUS Oxytocin/Lactated Ringers [Pitocin in LR 10 Units/1,000 Med 03/09/20 20:30 Active ML] 10 unit in 1,000 ml IV TITRATE Sodium Chloride 0.9% [Saline Flush] Med 03/09/20 19:33 Active 10 ml FLUSH ASDIRECTED PRN DVT/VTE Prophylaxis Reflex [OM.PC] Routine Oth 03/09/20 19:35 Ordered Electronic Heart Tones Ext w TOCO [WOMSER] Oth 03/09/20 19:34 Ordered Routine Electronic Heart Tones Internal [WOMSER] Per Unit Oth 03/09/20 19:34 Ordered Routine Peripheral IV Insertion Adult [OM.PC] Routine Oth 03/09/20 19:34 Ordered Resuscitation Status Routine Resus Stat 03/09/20 19:33 Ordered Medication Orders Oxytocin/Lactated Ringer's (Pitocin In Lr 10 Units/1,000 Ml) 10 unit in 1,000 mls @ 500 mls/hr IV .CONTINUOUS ABE Lactated Ringer's (Ringers, Lactated) 1,000 mls @ 100 mls/hr IV ASDIRECTED ABE Oxytocin/Lactated Ringer's (Pitocin In Lr 10 Units/1,000 Ml) 10 unit in 1,000 mls @ 12 mls/hr IV TITRATE ABE; Protocol Nalbuphine HCl (Nubain) 10 mg IVPUSH Q2H PRN PRN Reason: Pain Ondansetron HCl (Zofran) 4 mg IVPUSH Q4H PRN PRN Reason: Nausea/Vomiting Sodium Chloride (Saline Flush) 10 ml FLUSH ASDIRECTED PRN PRN Reason: Keep Vein Open Assessment/Plan Comment:: 1. 30-year-old 4 para 0030 female at 39 and 27 weeks' gestational age with an MIGUEL of 03/14/2020 admitted for induction of labor. 2. Risk factors for the include obesityBMI 48, history of contractions, abnormal 1 hour glucose tolerance test with hemoglobin A1c of 6.0, history of asthmastable, history of depression. 3. Estimated weight on last evaluation on last biophysical profile evaluation high 7 pound range 4. Group B strep screen negative 5. Rubella immune 6. RPR nonreactive. 7. Patient has had 2 courses of betamethasone at 26 and again at 31 weeks gestational age because of history of contractions. 8. Patient is considering an epidural in labor and delivery. Plan: 1. Pitocin induction of labor-process discussed with patient detail. She wishes to proceed 2. Regular diet 3. Epidural if patient desires 4. Routine labor care 5. RPR and CBC upon admission 6. Anticipate normal spontaneous vaginal delivery.
[2020-03-09] MEDS: Oxytocin/Lactated Ringers 10 UNIT/1,000 ML BAG IV SCH (21:08)
[2020-03-09] MEDS: Lactated Ringers 1,000 ML IV SCH (21:08)
[2020-03-10] MEDS ORDERED: Phenylephrine 1% 10 MG/ML SDV ONE
[2020-03-10] MEDS ORDERED: ePHEDrine 50 MG/ML SDV ONE
[2020-03-10] MEDS ORDERED: Bupivacaine 0.25% 10 ML SDV ONE
[2020-03-10] MEDS ORDERED: Lidocaine 1.5% with EPINEPHrine 1:200,000 5 ML Amp ONE
[2020-03-10] MEDS: Nalbuphine 10 MG/ML Syringe IVPUSH PRN ×2 (04:21→07:57)
[2020-03-10] MEDS: Lactated Ringers 1,000 ML IV SCH ×4 (05:54→14:56)
[2020-03-10] MEDS: Ondansetron 4 MG/2 ML SDV IVPUSH PRN ×2 (05:57→15:25)
[2020-03-10] MEDS: Oxytocin/Lactated Ringers 10 UNIT/1,000 ML BAG IV SCH (09:30)
--- NOTE | 2020-03-10 09:33 | PCM.SN.2 ---
- Free Text/Narrative Note: Progress note: Ondina has been on Pitocin throughout the night. She is uncomfortable and did have contractions that occur approximately every 3 minutes. Hard to assess because of patient's body habitus. heart tones have been reassuring. Vital signs stable and patient is afebrile. heart tones are reassuring with good variability, accelerations and no significant decelerations noted. Cervix is 2+ centimeters, 80% effaced, -3 station but well applied to the cervix, soft, anterior. Slight changes noted over evaluation last evening. AROM was accomplished with clear amniotic fluid resulting. Assessment/plan: 39-3/7 week intrauterine , induction of labor with slow progress. AROM accomplished. Will monitor strength of contractions. Epidural if patient desires.
[2020-03-10] MEDS ORDERED: diphenhydrAMINE 50 MG/ML SDV IVPUSH PRN ×2 (09:50→09:56)
[2020-03-10] MEDS ORDERED: ePHEDrine 50 MG/ML SDV IVPUSH PRN ×2 (09:50→09:56)
[2020-03-10] MEDS ORDERED: Bupivacaine/fentaNYL/NS 100 ML Bag EPIDUR PRN ×2 (09:50→09:56)
[2020-03-10] MEDS ORDERED: fentaNYL 100 MCG/2 ML SDV EPIDUR PRN (09:56)
--- NOTE | 2020-03-10 09:58 | PCM.PREANE ---
Preanesthetic Assessment - Anesthesia/Transfusion/Family Hx Anesthesia History: Prior Anesthesia Without Reaction Transfusion History: No Prior Transfusion(s) Intubation History: Unknown - Review of Systems General: No Symptoms Pulmonary: No Symptoms Cardiovascular: No Symptoms Gastrointestinal: No Symptoms Neurological: No Symptoms Other: Reports: Depression, Anxiety - Physical Assessment Vital Signs: Last Vital Signs Temp 98.0 F 03/09/20 19:34 Pulse 105 H 03/09/20 19:34 Resp 16 03/09/20 19:34 BP 95/75 03/09/20 19:34 Pulse Ox 94 L 03/09/20 19:34 Height: 1.6 m Weight: 122.924 kg ASA Class: 3 Mental Status: Alert & Oriented x3 Airway Class: Mallampati = 3 Dentition: Reports: Normal Dentition, Caries Thyro-Mental Finger Breadths: 3 Mouth Opening Finger Breadths: 3 ROM/Head Extension: Full Lungs: Clear to Auscultation, Normal Respiratory Effort Cardiovascular: Regular Rate, Regular Rhythm - Lab Values: Laboratory Last Values WBC 12.37 K/mm3 (3.98-10.04) H 03/09/20 20:05 RBC 4.21 M/mm3 (3.98-5.22) 03/09/20 20:05 Hgb 12.2 gm/dl (11.2-15.7) 03/09/20 20:05 Hct 37.6 % (34.1-44.9) 03/09/20 20:05 MCV 89.3 fl (79.4-94.8) 03/09/20 20:05 MCH 29.0 pg (25.6-32.2) 03/09/20 20:05 MCHC 32.4 g/dl (32.2-35.5) 03/09/20 20:05 RDW Std Deviation 47.1 fL (36.4-46.3) H 03/09/20 20:05 Plt Count 324 K/mm3 (182-369) 03/09/20 20:05 MPV 10.4 fl (9.4-12.3) 03/09/20 20:05 Neut % (Auto) 72.6 % (34.0-71.1) H 03/09/20 20:05 Lymph % (Auto) 16.2 % (19.3-51.7) L 03/09/20 20:05 [place]un % (Auto) 9.1 % (4.7-12.5) 03/09/20 20:05 Eos % (Auto) 1.1 (0.7-5.8) 03/09/20 20:05 Baso % (Auto) 0.2 % (0.1-1.2) 03/09/20 20:05 Neut # (Auto) 8.99 K/mm3 (1.56-6.13) H 03/09/20 20:05 Lymph # (Auto) 2.00 K/mm3 (1.18-3.74) 03/09/20 20:05 [place] # (Auto) 1.13 K/mm3 (0.24-0.36) H 03/09/20 20:05 Eos # (Auto) 0.13 K/mm3 (0.04-0.36) 03/09/20 20:05 Baso # (Auto) 0.02 K/mm3 (0.01-0.08) 03/09/20 20:05 COVID-19 (AKASH) Negative (NEGATIVE) 03/09/20 20:15 Blood Type O POSITIVE 03/09/20 20:05 Gel Antibody Screen Negative 03/09/20 20:05 - Allergies Allergies/Adverse Reactions: Allergies Allergy/AdvReac Type Severity Reaction Status Date / Time amoxicillin Allergy Rash Verified 03/09/20 19:22 tree nut [Pecans] Allergy Airway Verified 03/09/20 19:22 Tightness walnut Allergy Airway Verified 03/09/20 19:22 Tightness - Acknowledgements Anesthesia Type Planned: Epidural Pt an Appropriate Candidate for the Planned Anesthesia: Yes Alternatives and Risks of Anesthesia Discussed w Pt/Guardian: Yes Pt/Guardian Understands and Agrees with Anesthesia Plan: Yes PreAnesthesia Questionnaire - Past Health History Medical/Surgical History: Denies Medical/Surgical History HEENT History: Reports: Impaired Vision Other HEENT History: wears eyeglasses. 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 Other OB/BYN History: G 4 P 0 LMP 06/02 Neurological History: Reports: Concussion Psychiatric History: Reports: Anxiety, Depression Endocrine/Metabolic History: Reports: Obesity/BMI 30+ Dermatologic History: Reports: Eczema - Infectious Disease History Infectious Disease History: Reports: Chicken Pox - Past Surgical History GI Surgical History: Reports: Colonoscopy, EGD - SUBSTANCE USE Smoking Status *Q: Never Smoker Recreational Drug Use History: No - HOME MEDS Home Medications: Home Meds Pnv No.95/Ferrous Fum/Folic AC [ Vitamin Tablet] 1 tab PO DAILY 02/18/19 [History] Omeprazole Magnesium [Prilosec] 10 mg PO DAILY 03/09/20 [History] - CURRENT (IN HOUSE) MEDS Current Meds: Current Medications Diphenhydramine HCl (Benadryl) 25 mg IVPUSH Q6H PRN PRN Reason: pruritis Ephedrine Sulfate (Ephedrine Sulfate) 5 mg IVPUSH ASDIRECTED PRN PRN Reason: Hypotension Fentanyl (Sublimaze) 100 mcg EPIDUR Q3H PRN PRN Reason: Pain Fentanyl/Bupivacaine HCl (Fentanyl/Bupivacaine/Ns 2 Mcg-0.125% 100 Ml) 100 ml EPIDUR ASDIRECTED PRN PRN Reason: Pain Oxytocin/Lactated Ringer's (Pitocin In Lr 10 Units/1,000 Ml) 10 unit in 1,000 mls @ 500 mls/hr IV .CONTINUOUS ABE Lactated Ringer's (Ringers, Lactated) 1,000 mls @ 100 mls/hr IV ASDIRECTED ABE Last Admin: 03/10/20 05:54 Dose: 100 mls/hr Documented by: Oxytocin/Lactated Ringer's (Pitocin In Lr 10 Units/1,000 Ml) 10 unit in 1,000 mls @ 12 mls/hr IV TITRATE ABE; Protocol Last Admin: 03/10/20 09:30 Dose: 16 munits/min, 96 mls/hr Documented by: Nalbuphine HCl (Nubain) 10 mg IVPUSH Q2H PRN PRN Reason: Pain Last Admin: 03/10/20 07:57 Dose: 10 mg Documented by: Ondansetron HCl (Zofran) 4 mg IVPUSH Q4H PRN PRN Reason: Nausea/Vomiting Last Admin: 03/10/20 05:57 Dose: 4 mg Documented by: Sodium Chloride (Saline Flush) 10 ml FLUSH ASDIRECTED PRN PRN Reason: Keep Vein Open Discontinued Medications Diphenhydramine HCl (Benadryl) 25 mg IVPUSH Q6H PRN PRN Reason: pruritis Ephedrine Sulfate (Ephedrine Sulfate) 5 mg IVPUSH ASDIRECTED PRN PRN Reason: Hypotension Fentanyl (Sublimaze) 100 mcg EPIDUR Q3H PRN PRN Reason: Pain Fentanyl/Bupivacaine HCl (Fentanyl/Bupivacaine/Ns 2 Mcg-0.125% 100 Ml) 100 ml EPIDUR ASDIRECTED PRN PRN Reason: Pain Misoprostol (Cytotec) 25 mcg VAG ONETIME ONE Stop: 03/09/20 19:37 Last Admin: 03/09/20 21:08 Dose: Not Given Documented by:
[2020-03-10] MEDS: fentaNYL 100 MCG/2 ML SDV EPIDUR PRN ×2 (10:08→15:42)
--- NOTE | 2020-03-10 20:36 | PCM.SN.2 ---
- Free Text/Narrative Note: Ondina is a 20-year-old 4 para 1031 female who is admitted for induction of labor on the evening of 03/09/2020 at 39-2/7 weeks gestational age with an MIGUEL of 03/14/2020. Procedure of induction of labor, its risks, benefits, limitations and follow-up along with the alternatives including allowing for natural onset of labor all discussed in detail with patient. Patient is admitted on the p.m. of 03/09/2020 for induction of labor. Cervix was noted to be 2+ centimeters, 80% effaced. Baby is in vertex presentation. Pitocin was started and continued overnight. She made very little progress with this Pitocin induction. In the morning with the baby's head was noted to be well applied to the cervix and artificial rupture membranes was undertaken with resultant clear amniotic fluid. She underwent epidural/spinal for labor analgesia. Labor pattern intensified. She progressed relatively slowly to approximately 5 cm segment then more rapidly to complete. At approximate 1730 hrs. she began pushing and pushed until approximately 2003 hrs. which time she delivered a viable, gonzalez, female infant named Penny in a direct occiput anterior position. Vacuum extractor was used to bring the baby's head down to the perineum at which time she did spontaneously deliver the baby. There was a tight fitting shoulder anteriorly but not felt to be a formal shoulder dystocia. Baby was placed on mom's abdomen. Nose and mouth were bulb suctioned was dried. Cord was clamped 2 and the baby was taken to the warmer for evaluation. scores were 7 and 9. Weight was 3240 g (7 lbs. 2 oz. and length was 20-1/2 inches. Cord blood was obtained. 15 year with no the umbilical cord had 3 vessels. A small first-degree laceration was noted in the perineal area this was repaired with 3-0 Monocryl in a short running suture. Patient plans to breast-feed. Estimated blood loss was 200 mL. Condition: Good.
[2020-03-10] MEDS ORDERED: Benzocaine/Menthol 20%-0.5% Spray 56 GM Canister TOP PRN (20:59)
[2020-03-10] MEDS ORDERED: Ibuprofen 600 MG Tab PO PRN (20:59)
[2020-03-10] MEDS ORDERED: Witch Hazel Medicated Pads 40/Jar TOP PRN (20:59)
[2020-03-10] MEDS: Docusate Sodium 100 MG Cap PO PRN (21:24)
[2020-03-10] MEDS: Acetaminophen 325 MG Tab PO PRN (23:11)
[2020-03-11] MEDS: Acetaminophen 325 MG Tab PO PRN ×5 (04:49→21:57)
[2020-03-11] MEDS: Docusate Sodium 100 MG Cap PO PRN ×2 (08:50→20:53)
--- NOTE | 2020-03-11 11:59 | PCM48HPAN ---
Post Anesthesia Note - EVALUATION WITHIN 48HRS OF ANESTHETIC Vital Signs in Normal Range: Yes Patient Participated in Evaluation: Yes Respiratory Function Stable: Yes Airway Patent: Yes Cardiovascular Function Stable: Yes Hydration Status Stable: Yes Pain Control Satisfactory: Yes Nausea and Vomiting Control Satisfactory: Yes Mental Status Recovered: Yes Vital Signs: Last Vital Signs Temp 97.7 F 03/11/20 08:54 Pulse 99 03/11/20 08:54 Resp 20 03/11/20 08:54 BP 119/50 L 03/11/20 08:54 Pulse Ox 100 03/11/20 08:54 - COMMENTS/OBSERVATIONS Free Text/Narrative:: Patient is on her day 1. Stated understanding about possible backaches following epidural anesthesia. Mentions having back soreness at this time. Explanation given about importance of avoiding back straining. Denies any headache or lightheadedness at this time. Comfortable now. Ambulating, no difficulty urinating.
[2020-03-11] MEDS ORDERED: Calcium Carbonate 500 MG Tab.Chew PO PRN (21:45)
--- NOTE | 2020-03-12 07:10 | PCM.DCSUM1 ---
Discharge Summary - Hospital Course Free Text/Narrative:: Ondina is a 20-year-old 4 para 1031 female who is admitted for induction of labor on the evening of 03/09/2020 at 39-2/7 weeks gestational age with an MIGUEL of 03/14/2020. Procedure of induction of labor, its risks, benefits, limitations and follow-up along with the alternatives including allowing for natural onset of labor all discussed in detail with patient. Patient is admitted on the p.m. of 03/09/2020 for induction of labor. Cervix was noted to be 2+ centimeters, 80% effaced. Baby is in vertex presentation. Pitocin was started and continued overnight. She made very little progress with this Pitocin induction. In the morning with the baby's head was noted to be well applied to the cervix and artificial rupture membranes was undertaken with resultant clear amniotic fluid. She underwent epidural/spinal for labor analgesia. Labor pattern intensified. She progressed relatively slowly to approximately 5 cm segment then more rapidly to complete. At approximate 1730 hrs. she began pushing and pushed until approximately 2003 hrs. which time she delivered a viable, gonzalez, female infant named Penny in a direct occiput anterior position. Vacuum extractor was used to bring the baby's head down to the perineum at which time she did spontaneously deliver the baby. There was a tight fitting shoulder anteriorly but not felt to be a formal shoulder dystocia. Baby was placed on mom's abdomen. Nose and mouth were bulb suctioned was dried. Cord was clamped 2 and the baby was taken to the warmer for evaluation. scores were 7 and 9. Weight was 3240 g (7 lbs. 2 oz. and length was 20-1/2 inches. Cord blood was obtained. 15 year with no the umbilical cord had 3 vessels. A small first-degree laceration was noted in the perineal area this was repaired with 3-0 Monocryl in a short running suture. Patient plans to breast-feed. Estimated blood loss was 200 mL. patient is doing very well. She has minimal lochia. She is voiding well. She is breast-feeding without concerns. She is desiring discharge home. Condition: Good. - Discharge Data Discharge Date: 03/12/20 Discharge Disposition: Home, Self-Care 01 Condition: Good - Referral to Home Health Primary Care Physician: Jese Lawrence MD - Patient Instructions Diet: Regular Diet as Tolerated (Nursing diet with increase calories and calcium as recommended) Activity: As Tolerated (No intercourse or tampons until bleeding resolves) Driving: May Drive Today Showering/Bathing: May Shower (May take a bath) Notify Provider of: Fever, Increased Pain, Swelling and Redness, Nausea and/or Vomiting - Discharge Plan Home Medications: Home Meds Pnv No.95/Ferrous Fum/Folic AC [ Vitamin Tablet] 1 tab PO DAILY 02/18/19 [History] Omeprazole Magnesium [Prilosec] 10 mg PO DAILY 03/09/20 [History] Referrals: Jese Lawrence MD [Primary Care Provider] - (Return to clinicDr. Lawrence or Leticia castillo, nurse practitioner2 weeks.) - Discharge Summary/Plan Comment DC Time >30 min.: No Discharge Summary/Plan Comment: Discharge instructions: 1. Discharge home 2. Diet, activity and follow-up discussed with patient. Recommend nursing diet with increased calories and calcium. 3. Precautions given concern increased pain, bleeding, temperature, signs/symp toms of DVT/PE. 4. Medications per home medication was printed, discussed with and given to the patient. 5. Return to clinic-Dr. Lawrence or Leticia castillo, nurse practitioner-[facility] in 2 weeks. Diagnosis: Term -delivered Condition: Good - Patient Data Vitals - Most Recent: Last Vital Signs Temp 36.9 C 03/12/20 03:14 Pulse 88 03/12/20 03:14 Resp 16 03/12/20 03:14 BP 120/65 03/12/20 03:14 Pulse Ox 95 03/12/20 03:14 Weight - Most Recent: 122.924 kg I&O - Last 24 hours: Intake & Output 03/11/20 03/12/20 03/12/20 22:59 06:59 14:59 Intake Total 240 Balance 240 Med Orders - Current: Current Medications Acetaminophen (Tylenol) 650 mg PO Q4H PRN PRN Reason: mild pain or fever Last Admin: 03/11/20 21:57 Dose: 650 mg Documented by: Benzocaine/Menthol (Dermoplast Pain Relief [place]) 0 gm TOP ASDIRECTED PRN PRN Reason: Perineal Comfort Measure Last Admin: 03/10/20 21:27 Dose: 1 canister Documented by: Calcium Carbonate/Glycine (Tums) 1,000 mg PO Q2H PRN PRN Reason: Indigestion Last Admin: 03/11/20 21:58 Dose: 1,000 mg Documented by: Docusate Sodium (Colace) 100 mg PO BID PRN PRN Reason: Constipation Last Admin: 03/11/20 20:53 Dose: 100 mg Documented by: Ibuprofen (Motrin) 600 mg PO Q4H PRN PRN Reason: Mild pain or fever Last Admin: 03/10/20 21:23 Dose: 600 mg Documented by: Zuri Galaviz (Tucks) 1 pad TOP ASDIRECTED PRN PRN Reason: Perineal Comfort Measure Last Admin: 03/10/20 21:27 Dose: 1 tub Documented by: Discontinued Medications Bupivacaine HCl (Sensorcaine-Mpf 0.25%) 10 ml .ROUTE .ST3nder-MED ONE Stop: 03/10/20 00:01 Diphenhydramine HCl (Benadryl) 25 mg IVPUSH Q6H PRN PRN Reason: pruritis Diphenhydramine HCl (Benadryl) 25 mg IVPUSH Q6H PRN PRN Reason: pruritis Ephedrine Sulfate (Ephedrine Sulfate) 5 mg IVPUSH ASDIRECTED PRN PRN Reason: Hypotension Ephedrine Sulfate (Ephedrine Sulfate) 5 mg IVPUSH ASDIRECTED PRN PRN Reason: Hypotension Ephedrine Sulfate (Ephedrine Sulfate) 50 mg .ROUTE .STK-MED ONE Stop: 03/10/20 00:01 Fentanyl (Sublimaze) 100 mcg EPIDUR Q3H PRN PRN Reason: Pain Last Admin: 03/10/20 15:42 Dose: 100 mcg Documented by: Fentanyl (Sublimaze) 100 mcg EPIDUR Q3H PRN PRN Reason: Pain Fentanyl/Bupivacaine HCl (Fentanyl/Bupivacaine/Ns 2 Mcg-0.125% 100 Ml) 100 ml EPIDUR ASDIRECTED PRN PRN Reason: Pain Last Admin: 03/10/20 10:08 Dose: 100 ml Documented by: Fentanyl/Bupivacaine HCl (Fentanyl/Bupivacaine/Ns 2 Mcg-0.125% 100 Ml) 100 ml EPIDUR ASDIRECTED PRN PRN Reason: Pain Oxytocin/Lactated Ringer's (Pitocin In Lr 10 Units/1,000 Ml) 10 unit in 1,000 mls @ 500 mls/hr IV .CONTINUOUS ABE Last Admin: 03/10/20 21:25 Dose: 500 mls/hr Documented by: Lactated Ringer's (Ringers, Lactated) 1,000 mls @ 100 mls/hr IV ASDIRECTED ABE Last Admin: 03/10/20 14:56 Dose: 100 mls/hr Documented by: Oxytocin/Lactated Ringer's (Pitocin In Lr 10 Units/1,000 Ml) 10 unit in 1,000 mls @ 12 mls/hr IV TITRATE ABE; Protocol Last Titration: 03/10/20 16:30 Dose: 10 munits/min, 60 mls/hr Documented by: Lidocaine/Epinephrine (Xylocaine-Mpf 1.5% W/Epinephrine 1:200,000) 20 ml .ROUTE .STK-MED ONE Stop: 03/10/20 00:01 Misoprostol (Cytotec) 25 mcg VAG ONETIME ONE Stop: 03/09/20 19:37 Last Admin: 03/09/20 21:08 Dose: Not Given Documented by: Nalbuphine HCl (Nubain) 10 mg IVPUSH Q2H PRN PRN Reason: Pain Last Admin: 03/10/20 07:57 Dose: 10 mg Documented by: Ondansetron HCl (Zofran) 4 mg IVPUSH Q4H PRN PRN Reason: Nausea/Vomiting Last Admin: 03/10/20 15:25 Dose: 4 mg Documented by: Phenylephrine HCl (Manuel-Synephrine) 10 mg .ROUTE .STK-MED ONE Stop: 03/10/20 00:01 Sodium Chloride (Saline Flush) 10 ml FLUSH ASDIRECTED PRN PRN Reason: Keep Vein Open
[2020-03-12] MEDS: Acetaminophen 325 MG Tab PO PRN (08:47)
[2020-03-12 09:42] VITALS: BP 148/44; PULSE 91
== END 2020-03-12 10:25 | disposition home or self-care (01) | DRG 807 ==
LOC: JD.OB 19:12 → OBSVTOIN 03-10 20:03 → JD.OB 03-10 20:04
PROVIDERS: ADMIT Obstetrics & Gynecology; ATTEND Obstetrics & Gynecology
PROC: 10D07Z6 Extraction of Products of Conception, Vacuum, Via Natural or Artificial Opening (ICD-10-PCS; principal; 2020-03-10)
PROC: 10907ZC Drainage of Amniotic Fluid, Therapeutic from Products of Conception, Via Natural or Artificial Opening (ICD-10-PCS; 2020-03-10)
PROC: 3E033VJ Introduction of Other Hormone into Peripheral Vein, Percutaneous Approach (ICD-10-PCS; 2020-03-10)
PROC: 0HQ9XZZ Repair Perineum Skin, External Approach (ICD-10-PCS; 2020-03-10)
PROC: 3E0R3BZ Introduction of Anesthetic Agent into Spinal Canal, Percutaneous Approach (ICD-10-PCS; 2020-03-10)
PROC: 00HU33Z Insertion of Infusion Device into Spinal Canal, Percutaneous Approach (ICD-10-PCS; 2020-03-10)
DX: O99.62 Diseases of the digestive system complicating childbirth (principal); Z37.0 Single live birth; O70.0 First degree perineal laceration during delivery; Z3A.39 39 weeks gestation of pregnancy; K21.9 Gastro-esophageal reflux disease without esophagitis; O99.214 Obesity complicating childbirth; E66.9 Obesity, unspecified; Z11.59 Encounter for screening for other viral diseases
CPT/HCPCS: 36415; 51702; 59025; 59409; 85025; 86592; 86850; 86900; 86901; A9270-GY; J2300; J2370; J2405; J2590; J3010; J3490; J7120; U0002

== ENCOUNTER 2021-07-12 14:27 | Emergency (ER) | payer MEDICAID ==
[2021-07-12 15:13] VITALS: BP 157/98; PULSE 79
[2021-07-12] MEDS ORDERED: Ondansetron 4 MG/2 ML SDV IVPUSH ONE (15:44)
--- NOTE | 2021-07-12 15:51 | EDM.PDOC ---
ED HPI GENERAL MEDICAL PROBLEM - General Chief Complaint: Gastrointestinal Problem Stated Complaint: WEAK\ DIZZY Time Seen by Provider: 07/12/21 15:20 Source of Information: Reports: Patient History Limitations: Reports: No Limitations - History of Present Illness INITIAL COMMENTS - FREE TEXT/NARRATIVE: 21-year-old female presents the emergency department with complaints of nausea, vomiting and dizziness. Patient states that she is approximately 2-1/2 weeks and states that she has been so nauseated and dizzy that she has unable to parent her child. She states she has only vomited 3-4 times in the past 2- 1/2 weeks. She states she is otherwise healthy. She denies any recent fever, chills, diarrhea, vaginal bleeding. - Related Data Allergies Allergy/AdvReac Type Severity Reaction Status Date / Time amoxicillin Allergy Rash Verified 07/12/21 15:13 tree nut [Pecans] Allergy Airway Verified 07/12/21 15:13 Tightness walnut Allergy Airway Verified 07/12/21 15:13 Tightness Home Meds: Home Meds Pnv No.95/Ferrous Fum/Folic AC [ Vitamin Tablet] 1 tab PO DAILY 02/18/19 [History] Past Medical History - Past Health History Medical/Surgical History: Denies Medical/Surgical History HEENT History: Reports: Impaired Vision Other HEENT History: wears eyeglasses. Respiratory History: Reports: Asthma Gastrointestinal History: Reports: GERD Genitourinary History: Reports: UTI, Recurrent JAVA SYBASE DEVELOPER History: Reports: , Spontaneous Other JAVA SYBASE DEVELOPER History: G 4 P 0 LMP 06/02 Neurological History: Reports: Concussion Psychiatric History: Reports: Anxiety, Depression Endocrine/Metabolic History: Reports: Obesity/BMI 30+ Dermatologic History: Reports: Eczema - Infectious Disease History Infectious Disease History: Reports: Chicken Pox - Past Surgical History GI Surgical History: Reports: Colonoscopy, EGD Dermatological Surgical History: Reports: Other (See Below) Social & Family History - Family History Family Medical History: No Pertinent Family History Endocrine/Metabolic: Reports: Diabetes, type II Oncologic: Reports: Brain, Breast - Tobacco Use Tobacco Use Status *Q: Never Tobacco User Second Hand Smoke Exposure: No - Caffeine Use Caffeine Use: Reports: Soda - Recreational Drug Use Recreational Drug Use: No - Living Situation & Occupation Living situation: Reports: Single, with Family (Parents) 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 ED EXAM, GI/ABD - Physical Exam Exam: See Below Exam Limited By: No Limitations General Appearance: Alert, WD/WN, No Apparent Distress Ears: Normal External Exam, Hearing Grossly Normal Nose: Normal Inspection Throat/Mouth: Normal Inspection, Normal Lips, Normal Voice, No Airway Compromise Head: Atraumatic, Normocephalic Neck: Normal Inspection, Supple, Non-Tender, Full Range of Motion Respiratory/Chest: No Respiratory Distress, Lungs Clear, Normal Breath Sounds, No Accessory Muscle Use, Chest Non-Tender Cardiovascular: Normal Peripheral Pulses, Regular Rate, Rhythm, No Edema, No Murmur GI/Abdominal Exam: Normal Bowel Sounds, Soft, Non-Tender, No Distention (Female) Exam: Deferred Rectal (Female) Exam: Deferred Back Exam: Normal Inspection Extremities: Normal Inspection Neurological: Alert, Oriented, Normal Cognition Psychiatric: Normal Affect, Normal Mood Skin Exam: Warm, Dry, Intact, Normal Color, No Rash Lymphatic: No Adenopathy Course - Vital Signs Text/Narrative:: Physical exam is essentially unremarkable. Patient is hemodynamically stable at the time of my exam. Will obtain lab studies to include a CBC, CMP, urinalysis with micro and culture if indicated as well as a Covid swab. Last Recorded V/S: Last Vital Signs Temp 97.1 F 07/12/21 15:12 Pulse 79 07/12/21 15:12 Resp 18 07/12/21 15:12 BP 157/98 H 07/12/21 15:12 Pulse Ox 98 07/12/21 15:12 - Orders/Labs/Meds Orders: Active Orders 24 hr Category Date Time Status CULTURE URINE [MREF] Stat Lab 07/12/21 15:17 Received Labs: Laboratory Tests 07/12/21 07/12/21 07/12/21 Range/Units 15:05 15:17 15:17 WBC (3.98-10.04) K/mm3 RBC (3.98-5.22) M/mm3 Hgb (11.2-15.7) gm/dl Hct (34.1-44.9) % MCV (79.4-94.8) fl MCH (25.6-32.2) pg MCHC (32.2-35.5) g/dl RDW Std Deviation (36.4-46.3) fL Plt Count (182-369) K/mm3 MPV (9.4-12.3) fl Neut % (Auto) (34.0-71.1) % Lymph % (Auto) (19.3-51.7) % [place] % (Auto) (4.7-12.5) % Eos % (Auto) (0.7-5.8) Baso % (Auto) (0.1-1.2) % Neut # (Auto) (1.56-6.13) K/mm3 Lymph # (Auto) (1.18-3.74) K/mm3 [place] # (Auto) (0.24-0.36) K/mm3 Eos # (Auto) (0.04-0.36) K/mm3 Baso # (Auto) (0.01-0.08) K/mm3 Sodium (136-145) mEq/L Potassium (3.5-5.1) mEq/L Chloride (98-107) mEq/L Carbon Dioxide (21-32) mEq/L Anion Gap (5-15) BUN (7-18) mg/dL Creatinine (0.55-1.02) mg/dL Est Cr Clr Drug Dosing mL/min Estimated GFR (MDRD) (>60) mL/min BUN/Creatinine Ratio (14-18) Glucose (70-99) mg/dL Calcium (8.5-10.1) mg/dL Urine Color Yellow (Yellow) Urine Appearance Slt cloudy H (Clear) Urine pH 7.0 (5.0-8.0) Ur Specific [place] > or = 1.030 (1.005-1.030) Urine Protein Negative (Negative) Urine Glucose (UA) Negative (Negative) Urine Ketones Negative (Negative) Urine Occult Blood Negative (Negative) Urine Nitrite Negative (Negative) Urine Bilirubin Negative (Negative) Urine Urobilinogen 0.2 (0.2-1.0) Ur Leukocyte Esterase Trace H (Negative) Urine RBC 0-5 (0-5) /hpf Urine WBC 5-10 H (0-5) /hpf Ur Squamous Epith Cells 5-10 H (0-5) /hpf Urine Bacteria Moderate H (FEW) /hpf Urine Mucus Few (FEW) /hpf Urine HCG, Qual Positive (NEGATIVE) Influenza Type A RNA Negative (NEGATIVE) Influenza Type B RNA Negative (NEGATIVE) SARS-CoV-2 RNA (AKASH) Negative (NEGATIVE) 07/12/21 07/12/21 Range/Units 15:32 15:32 WBC 10.51 H (3.98-10.04) K/mm3 RBC 4.97 (3.98-5.22) M/mm3 Hgb 13.4 (11.2-15.7) gm/dl Hct 41.5 (34.1-44.9) % MCV 83.5 D (79.4-94.8) fl MCH 27.0 (25.6-32.2) pg MCHC 32.3 (32.2-35.5) g/dl RDW Std Deviation 44.7 (36.4-46.3) fL Plt Count 372 H (182-369) K/mm3 MPV 9.6 (9.4-12.3) fl Neut % (Auto) 68.2 (34.0-71.1) % Lymph % (Auto) 22.2 (19.3-51.7) % [place] % (Auto) 7.6 (4.7-12.5) % Eos % (Auto) 1.2 (0.7-5.8) Baso % (Auto) 0.2 (0.1-1.2) % Neut # (Auto) 7.17 H (1.56-6.13) K/mm3 Lymph # (Auto) 2.33 (1.18-3.74) K/mm3 [place] # (Auto) 0.80 H (0.24-0.36) K/mm3 Eos # (Auto) 0.13 (0.04-0.36) K/mm3 Baso # (Auto) 0.02 (0.01-0.08) K/mm3 Sodium 137 (136-145) mEq/L Potassium 4.1 (3.5-5.1) mEq/L Chloride 103 (98-107) mEq/L Carbon Dioxide 22 (21-32) mEq/L Anion Gap 16.1 H (5-15) BUN 6 L (7-18) mg/dL Creatinine 0.6 (0.55-1.02) mg/dL Est Cr Clr Drug Dosing 121.66 mL/min Estimated GFR (MDRD) > 60 (>60) mL/min BUN/Creatinine Ratio 10.0 L (14-18) Glucose 92 (70-99) mg/dL Calcium 9.1 (8.5-10.1) mg/dL Urine Color (Yellow) Urine Appearance (Clear) Urine pH (5.0-8.0) Ur Specific [place] (1.005-1.030) Urine Protein (Negative) Urine Glucose (UA) (Negative) Urine Ketones (Negative) Urine Occult Blood (Negative) Urine Nitrite (Negative) Urine Bilirubin (Negative) Urine Urobilinogen (0.2-1.0) Ur Leukocyte Esterase (Negative) Urine RBC (0-5) /hpf Urine WBC (0-5) /hpf Ur Squamous Epith Cells (0-5) /hpf Urine Bacteria (FEW) /hpf Urine Mucus (FEW) /hpf Urine HCG, Qual (NEGATIVE) Influenza Type A RNA (NEGATIVE) Influenza Type B RNA (NEGATIVE) SARS-CoV-2 RNA (AKASH) (NEGATIVE) Meds: Medications Discontinued Medications Generic Name Dose Route Start Last Admin Trade Name Freq PRN Reason Stop Dose Admin Cephalexin 500 mg 07/12/21 16:42 Cephalexin 500 Mg Cap PO 07/12/21 16:43 ONETIME ONE Sodium Chloride 1,000 mls @ 999 mls/hr 07/12/21 16:42 Normal Saline IV 07/12/21 17:42 ONETIME ONE Ondansetron HCl 4 mg 07/12/21 15:44 07/12/21 16:11 Ondansetron 4 Mg/2 Ml Sdv IVPUSH 07/12/21 15:45 4 mg ONETIME ONE Administration - Re-Assessments/Exams Free Text/Narrative Re-Assessment/Exam: 07/12/21 16:41 Hematology reveals a WBC of 10.51, hemoglobin 13.4, hematocrit 41.5, platelet count 372 Chemistry reveals a sodium of 137, potassium 4.1, anion gap 16.1, BUN 6, creatinine 0.6 Urinalysis reveals a trace of leukocyte esterase, urine RBC 0-5, urine WBC 5-10, urine squamous epithelial cells 5-10, urine bacteria moderate, urine culture is pending Serology reveals the patient is negative for influenza A B and Covid Patient will be given a liter of IV fluids as she does appear to be slightly dehydrated and started on p.o. Keflex for treatment of UTI. 07/12/21 16:47 Patient is refusing IV fluids and is requesting to go home. Patient will be sent home with prescription for Keflex twice daily x5 days total as well as Zofran ODT. Departure - Departure Time of Disposition: 16:50 Disposition: Home, Self-Care 01 Condition: Good Clinical Impression: UTI, Urinary tract infectious disease, Nausea - Discharge Information Instructions: and Urinary Tract Infection Referrals: Leticia Smith FRONT COUNTER ATTENDANT [Primary Care Provider] - Forms: ED Department Discharge Additional Instructions: You were seen in the emergency department today with nausea, vomiting and dizziness. You were given nausea medication while in the emergency department and this did seem to help. Lab studies were completed which does show you have a urinary tract infection. While in the emergency department you are given your first dose of antibiotic. I have given you a prescription for the remaining doses of the antibiotic. Take 1 tablet twice daily for a total of 5 days. At that time you should have your urine rechecked to be sure the infection has cleared up. I have also given you a prescription for nausea medication called Zofran ODT. You can take 1 tab and allow it to dissolve in your mouth. This can be taken every 8 hours as needed for nausea and vomiting. Recommend that you follow-up with your JAVA SYBASE DEVELOPER for further evaluation. Sepsis Event Note (ED) - Focused Exam Vital Signs: Vital Signs Temp Pulse Resp BP Pulse Ox 07/12/21 15:12 97.1 F 79 18 157/98 H 98
[2021-07-12 16:00] LABS: CORONAVIRUS COVID-19 NAA NEGATIVE (NEGATIVE)
[2021-07-12] MEDS ORDERED: Cephalexin 500 MG Cap PO ONE (16:42)
[2021-07-12] MEDS ORDERED: Sodium Chloride 0.9% 1,000 ML IV ONE (16:42)
== END 2021-07-12 17:25 | disposition home or self-care (01) ==
LOC: JD.ED 14:27
DX: O23.41 Unspecified infection of urinary tract in pregnancy, first trimester (principal); O21.9 Vomiting of pregnancy, unspecified; N39.0 Urinary tract infection, site not specified; Z88.0 Allergy status to penicillin; Z91.018 Allergy to other foods; Z3A.01 Less than 8 weeks gestation of pregnancy; Z20.822 Contact with and (suspected) exposure to COVID-19
CPT/HCPCS: 0240U; 36415; 80048; 81001; 81025; 85025; 87086; 96374; 99284; A9270; J2405

== ENCOUNTER 2021-07-23 14:19 | Emergency (ER) | payer MEDICAID ==
[2021-07-23 14:38] VITALS: BP 136/72; PULSE 88
[2021-07-23] MEDS ORDERED: Sodium Chloride 0.9% 10 ML Syringe FLUSH PRN (14:54)
[2021-07-23] MEDS ORDERED: Sodium Chloride 0.9% 1,000 ML IV ONE (14:54)
[2021-07-23] MEDS ORDERED: Ondansetron 4 MG/2 ML SDV IVPUSH ONE (14:54)
--- NOTE | 2021-07-23 15:12 | EDM.PDOC ---
ED HPI GENERAL MEDICAL PROBLEM - General Chief Complaint: Gastrointestinal Problem Stated Complaint: DEHYDRATED VOMITING Time Seen by Provider: 07/23/21 14:37 Source of Information: Reports: Patient, RN Notes Reviewed History Limitations: Reports: No Limitations - History of Present Illness INITIAL COMMENTS - FREE TEXT/NARRATIVE: Patient is a 21-year-old female who presents to the ER for evaluation of her nausea and vomiting in early . Patient states she is roughly 8 weeks , and [employer] will be Dr. Lawrence. States that she woke up this morning, and she has not been able to keep any sort of food or fluids down at all. Not having any sort of abdominal cramping, vaginal bleeding or discharge coming from the vagina. Patient did not have any sort of nausea medications at home to medicate herself with. Patient denies any other sick-like symptoms, fever/chills, cough/shortness of breath. - Related Data Allergies Allergy/AdvReac Type Severity Reaction Status Date / Time amoxicillin Allergy Rash Verified 07/23/21 14:38 tree nut [Pecans] Allergy Airway Verified 07/12/21 15:13 Tightness walnut Allergy Airway Verified 07/12/21 15:13 Tightness Home Meds: Home Meds Pnv No.95/Ferrous Fum/Folic AC [ Vitamin Tablet] 1 tab PO DAILY 02/18/19 [History] Promethazine [Phenergan] 25 mg PO Q6H PRN #20 tab 07/23/21 [Rx] Past Medical History HEENT History: Reports: Impaired Vision Other HEENT History: wears eyeglasses. Respiratory History: Reports: Asthma Gastrointestinal History: Reports: GERD Genitourinary History: Reports: UTI, Recurrent [employer] History: Reports: , Spontaneous Para: 1 Neurological History: Reports: Concussion Psychiatric History: Reports: Anxiety, Depression Endocrine/Metabolic History: Reports: Obesity/BMI 30+ Dermatologic History: Reports: Eczema - Infectious Disease History Infectious Disease History: Reports: Chicken Pox - Past Surgical History GI Surgical History: Reports: Colonoscopy, EGD Social & Family History - Family History Family Medical History: No Pertinent Family History Endocrine/Metabolic: Reports: Diabetes, type II Oncologic: Reports: Brain, Breast - Caffeine Use Caffeine Use: Reports: Soda - Living Situation & Occupation Living situation: Reports: Single, with Family (Parents) 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 ED EXAM - Physical Exam Exam: See Below Exam Limited By: No Limitations General Appearance: Alert, WD/WN, No Apparent Distress Respiratory/Chest: No Respiratory Distress, Lungs Clear, Normal Breath Sounds, No Accessory Muscle Use, Chest Non-Tender Cardiovascular: Normal Peripheral Pulses, Regular Rate, Rhythm, No Edema GI/Abdominal Exam: Normal Bowel Sounds, Soft, Non-Tender, No Distention, No Mass Heart Tones: Not [place] Movement: Not Appreciated Extremities: Normal Inspection, Normal Capillary Refill Neurological: Alert, Oriented, Normal Cognition, No Motor/Sensory Deficits Psychiatric: Normal Affect, Normal Mood Skin Exam: Warm, Dry, Intact, Normal Color, No Rash Course - Vital Signs Last Recorded V/S: Last Vital Signs Temp 98.5 F 07/23/21 14:36 Pulse 88 07/23/21 14:36 Resp 18 07/23/21 14:36 BP 136/72 07/23/21 14:36 Pulse Ox 99 07/23/21 14:36 - Orders/Labs/Meds Orders: Active Orders 24 hr Category Date Time Status Peripheral IV Care [RC] . DIRECTED Care 07/23/21 14:54 Ordered Sodium Chloride 0.9% [Saline Flush] Med 07/23/21 14:54 Active 10 ml FLUSH ASDIRECTED PRN Peripheral IV Insertion Adult [OM.PC] Routine Oth 07/23/21 14:53 Ordered Medication Orders Sodium Chloride (Sodium Chloride 0.9% 10 Ml Syringe) 10 ml FLUSH ASDIRECTED PRN PRN Reason: Keep Vein Open Last Admin: 07/23/21 15:14 Dose: 10 ml Documented by: ALEJANDRA Labs: Laboratory Tests 07/23/21 07/23/21 Range/Units 15:24 15:24 WBC 9.48 (3.98-10.04) K/mm3 RBC 4.70 (3.98-5.22) M/mm3 Hgb 12.8 (11.2-15.7) gm/dl Hct 39.7 (34.1-44.9) % MCV 84.5 (79.4-94.8) fl MCH 27.2 (25.6-32.2) pg MCHC 32.2 (32.2-35.5) g/dl RDW Std Deviation 45.6 (36.4-46.3) fL Plt Count 305 (182-369) K/mm3 MPV 9.9 (9.4-12.3) fl Neut % (Auto) 69.3 (34.0-71.1) % Lymph % (Auto) 21.7 (19.3-51.7) % [place] % (Auto) 7.5 (4.7-12.5) % Eos % (Auto) 1.2 (0.7-5.8) Baso % (Auto) 0.1 (0.1-1.2) % Neut # (Auto) 6.57 H (1.56-6.13) K/mm3 Lymph # (Auto) 2.06 (1.18-3.74) K/mm3 [place] # (Auto) 0.71 H (0.24-0.36) K/mm3 Eos # (Auto) 0.11 (0.04-0.36) K/mm3 Baso # (Auto) 0.01 (0.01-0.08) K/mm3 Sodium 141 (136-145) mEq/L Potassium 3.9 (3.5-5.1) mEq/L Chloride 105 (98-107) mEq/L Carbon Dioxide 22 (21-32) mEq/L Anion Gap 17.9 H (5-15) BUN 7 (7-18) mg/dL Creatinine 0.6 (0.55-1.02) mg/dL Est Cr Clr Drug Dosing 127.00 mL/min Estimated GFR (MDRD) > 60 (>60) mL/min BUN/Creatinine Ratio 11.7 L (14-18) Glucose 85 (70-99) mg/dL Calcium 8.8 (8.5-10.1) mg/dL Total Bilirubin 0.2 (0.2-1.0) mg/dL AST 45 H (15-37) U/L ALT 82 H (14-59) U/L Alkaline Phosphatase 82 (46-116) U/L Total Protein 6.9 (6.4-8.2) g/dl Albumin 3.4 (3.4-5.0) g/dl Globulin 3.5 gm/dL Albumin/Globulin Ratio 1.0 (1-2) HCG, Quant 29047.0 mIU/mL Meds: Medications Generic Name Dose Route Start Last Admin Trade Name Freq PRN Reason Stop Dose Admin Sodium Chloride 10 ml 07/23/21 14:54 07/23/21 15:14 Sodium Chloride 0.9% 10 Ml Syringe FLUSH 10 ml ASDIRECTED PRN Administration Keep Vein Open Discontinued Medications Generic Name Dose Route Start Last Admin Trade Name Freq PRN Reason Stop Dose Admin Sodium Chloride 1,000 mls @ 999 mls/hr 07/23/21 14:54 07/23/21 15:13 Normal Saline IV 07/23/21 15:54 999 mls/hr ONETIME ONE Administration Ondansetron HCl 4 mg 07/23/21 14:54 07/23/21 15:13 Ondansetron 4 Mg/2 Ml Sdv IVPUSH 07/23/21 14:55 4 mg ONETIME ONE Administration - Re-Assessments/Exams Free Text/Narrative Re-Assessment/Exam: 07/23/21 15:11 Patient presents to the ED for her nausea/vomiting in . We will go ahead and give her some IV fluids, nausea meds and check some basic labs to start with. 07/23/21 17:18 Labs are fairly unremarkable, patient's hCG level is over 35,000. She states that the fluid did help a little bit, the Zofran also helps somewhat. She states with her last that she had a nausea been prescribed to her, I did refer her to her [employer] or primary care for this. She seemed to verbalize understanding. States that the Zofran taste does not really set well with her and makes her more nauseous so we will go ahead and try oral Phenergan for ongoing management. States that she will be in touch with Dr. Lawrence tomorrow for the alternative nausea relief. Departure - Departure Time of Disposition: 17:19 Disposition: Home, Self-Care 01 Condition: Good Clinical Impression: Nausea and vomiting during - Discharge Information *PRESCRIPTION DRUG MONITORING PROGRAM REVIEWED*: No *COPY OF PRESCRIPTION DRUG MONITORING REPORT IN PATIENT ALEXYS: No Prescriptions: Promethazine [Phenergan] 25 mg PO Q6H PRN #20 tab PRN Reason: Nausea Instructions: Nausea, Adult, [id number] Referrals: Leticia Smith NP [Primary Care Provider] - Jese Lawrence MD [Physician] - Forms: ED Department Discharge Additional Instructions: You were evaluated in the ER today regarding your nausea and vomiting in . You did have some labs drawn, and these were within normal limits, your hCG level was 35,657. No ultrasound was done at today's visit, due to you not having any vaginal symptoms or abdominal pain. You have been given a prescription for Phenergan tablets 1 tablet every 6 hours as needed for ongoing nausea management. This medication was electronically sent to the [place] pharmacy located in the [facility] grocery store. I would strongly recommend you follow-up with your [employer] for alternative nausea management; if this has worked well for you in the past. Please follow-up with Dr. Lawrence tomorrow for ongoing management, and to see about those alternative nausea management practices. Please return to the ED at any time if your symptoms change or worsen. Sepsis Event Note (ED) - Evaluation Sepsis Screening Result: No Definite Risk - Focused Exam Vital Signs: Vital Signs Temp Pulse Resp BP Pulse Ox 07/23/21 14:36 98.5 F 88 18 136/72 99 - My Orders Last 24 Hours: My Active Orders 07/23/21 14:53 Peripheral IV Insertion Adult [OM.PC] Routine 07/23/21 14:54 Peripheral IV Care [RC] . DIRECTED Sodium Chloride 0.9% [Saline Flush] 10 ml FLUSH ASDIRECTED PRN - Assessment/Plan Last 24 Hours: My Active Orders 07/23/21 14:53 Peripheral IV Insertion Adult [OM.PC] Routine 07/23/21 14:54 Peripheral IV Care [RC] . DIRECTED Sodium Chloride 0.9% [Saline Flush] 10 ml FLUSH ASDIRECTED PRN
== END 2021-07-23 18:13 | disposition home or self-care (01) ==
LOC: JD.ED 14:19
DX: O21.9 Vomiting of pregnancy, unspecified (principal); Z3A.08 8 weeks gestation of pregnancy; Z88.0 Allergy status to penicillin; Z91.018 Allergy to other foods
CPT/HCPCS: 36415; 80053; 84702; 85025; 96374; 99284; J2405; J7030

== ENCOUNTER 2021-07-28 15:48 | Emergency (ER) | payer MEDICAID ==
[2021-07-28 16:33] VITALS: BP 128/65
[2021-07-28] MEDS ORDERED: Sodium Chloride 0.9% 10 ML Syringe FLUSH PRN (16:35)
[2021-07-28] MEDS ORDERED: Metoclopramide 10 MG/2 ML SDV IVPUSH ONE (16:36)
[2021-07-28] MEDS ORDERED: Acetaminophen 325 MG Tab PO ONE (16:43)
[2021-07-28] MEDS ORDERED: Sodium Chloride 0.9% 1,000 ML IV ONE (16:43)
--- NOTE | 2021-07-28 16:49 | EDM.PDOC ---
ED HPI GENERAL MEDICAL PROBLEM - General Chief Complaint: Gastrointestinal Problem Stated Complaint: 8 WKS PG DIZZY Time Seen by Provider: 07/28/21 16:37 Source of Information: Reports: Patient, RN Notes Reviewed History Limitations: Reports: No Limitations - History of Present Illness INITIAL COMMENTS - FREE TEXT/NARRATIVE: Patient is a 21-year-old female who presents to the ER for evaluation of her nausea in . States that she is not really been able to keep anything down for food except for crackers since about Tuesday. She has been trying to keep hydrated but again has not really been able to stay on top of that. Patient was evaluated by myself for similar symptoms a few days ago. States that she tried to follow-up with Dr. Lawrence yesterday and today but she did not receive a call back from his office. She was sent home with Phenergan tablets but states that does not seem to be helping. No fevers, no chills, no cough, no shortness of breath, no diarrhea. States she is having maybe some low abdominal cramping but no vaginal bleeding spotting or otherwise. - Related Data Allergies Allergy/AdvReac Type Severity Reaction Status Date / Time amoxicillin Allergy Rash Verified 07/23/21 14:38 tree nut [Pecans] Allergy Airway Verified 07/12/21 15:13 Tightness walnut Allergy Airway Verified 07/12/21 15:13 Tightness Home Meds: Home Meds Pnv No.95/Ferrous Fum/Folic AC [ Vitamin Tablet] 1 tab PO DAILY 02/18/19 [History] Promethazine [Phenergan] 25 mg PO Q6H PRN #20 tab 07/23/21 [Rx] Metoclopramide HCl 10 mg PO QID PRN #20 tablet 07/28/21 [Rx] Past Medical History HEENT History: Reports: Impaired Vision Other HEENT History: wears eyeglasses. Respiratory History: Reports: Asthma Gastrointestinal History: Reports: GERD Genitourinary History: Reports: UTI, Recurrent [employer] History: Reports: , Spontaneous Neurological History: Reports: Concussion Psychiatric History: Reports: Anxiety, Depression Endocrine/Metabolic History: Reports: Obesity/BMI 30+ Dermatologic History: Reports: Eczema - Infectious Disease History Infectious Disease History: Reports: Chicken Pox Social & Family History - Family History Family Medical History: No Pertinent Family History Endocrine/Metabolic: Reports: Diabetes, type II Oncologic: Reports: Brain, Breast - Caffeine Use Caffeine Use: Reports: Soda - Living Situation & Occupation Living situation: Reports: Single, with Family (Parents) 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 ED EXAM - Physical Exam Exam: See Below Exam Limited By: No Limitations General Appearance: Alert, WD/WN, No Apparent Distress Respiratory/Chest: No Respiratory Distress, Lungs Clear, Normal Breath Sounds, No Accessory Muscle Use, Chest Non-Tender Cardiovascular: Normal Peripheral Pulses, Regular Rate, Rhythm, No Edema GI/Abdominal Exam: Normal Bowel Sounds, Soft, Non-Tender, No Distention, No Mass Heart Tones: Not [place] Movement: Not Appreciated Extremities: Normal Inspection, Normal Capillary Refill Neurological: Alert, Oriented, Normal Cognition, No Motor/Sensory Deficits Psychiatric: Normal Affect, Normal Mood Skin Exam: Warm, Dry, Intact, Normal Color, No Rash Course - Vital Signs Last Recorded V/S: Last Vital Signs Temp 97 F 07/28/21 16:31 Pulse Resp 16 07/28/21 16:31 BP 128/65 07/28/21 16:31 Pulse Ox - Orders/Labs/Meds Orders: Active Orders 24 hr Category Date Time Status Peripheral IV Care [RC] . DIRECTED Care 07/28/21 16:36 Ordered Sodium Chloride 0.9% [Saline Flush] Med 07/28/21 16:35 Ordered 10 ml FLUSH ASDIRECTED PRN Peripheral IV Insertion Adult [OM.PC] Stat Oth 07/28/21 16:36 Ordered Medication Orders Sodium Chloride (Sodium Chloride 0.9% 10 Ml Syringe) 10 ml FLUSH ASDIRECTED PRN PRN Reason: Keep Vein Open Last Admin: 07/28/21 17:00 Dose: 10 ml Documented by: GERARDO Labs: Laboratory Tests 07/28/21 07/28/21 Range/Units 17:11 17:11 WBC 10.62 H (3.98-10.04) K/mm3 RBC 4.84 (3.98-5.22) M/mm3 Hgb 13.2 (11.2-15.7) gm/dl Hct 40.3 (34.1-44.9) % MCV 83.3 (79.4-94.8) fl MCH 27.3 (25.6-32.2) pg MCHC 32.8 (32.2-35.5) g/dl RDW Std Deviation 45.4 (36.4-46.3) fL Plt Count 314 (182-369) K/mm3 MPV 10.1 (9.4-12.3) fl Neut % (Auto) 71.7 H (34.0-71.1) % Lymph % (Auto) 18.9 L (19.3-51.7) % [place] % (Auto) 7.5 (4.7-12.5) % Eos % (Auto) 1.4 (0.7-5.8) Baso % (Auto) 0.2 (0.1-1.2) % Neut # (Auto) 7.61 H (1.56-6.13) K/mm3 Lymph # (Auto) 2.01 (1.18-3.74) K/mm3 [place] # (Auto) 0.80 H (0.24-0.36) K/mm3 Eos # (Auto) 0.15 (0.04-0.36) K/mm3 Baso # (Auto) 0.02 (0.01-0.08) K/mm3 Sodium 139 (136-145) mEq/L Potassium 4.0 (3.5-5.1) mEq/L Chloride 105 (98-107) mEq/L Carbon Dioxide 21 (21-32) mEq/L Anion Gap 17.0 H (5-15) BUN 7 (7-18) mg/dL Creatinine 0.5 L (0.55-1.02) mg/dL Est Cr Clr Drug Dosing TNP Estimated GFR (MDRD) > 60 (>60) mL/min BUN/Creatinine Ratio 14.0 (14-18) Glucose 88 (70-99) mg/dL Calcium 8.5 (8.5-10.1) mg/dL Total Bilirubin 0.3 (0.2-1.0) mg/dL AST 39 H (15-37) U/L ALT 70 H (14-59) U/L Alkaline Phosphatase 88 (46-116) U/L Total Protein 6.8 (6.4-8.2) g/dl Albumin 3.5 (3.4-5.0) g/dl Globulin 3.3 gm/dL Albumin/Globulin Ratio 1.1 (1-2) HCG, Quant 61523.0 mIU/mL Meds: Medications Generic Name Dose Route Start Last Admin Trade Name Gopal PRN Reason Stop Dose Admin Sodium Chloride 10 ml 07/28/21 16:35 07/28/21 17:00 Sodium Chloride 0.9% 10 Ml Syringe FLUSH 10 ml ASDIRECTED PRN Administration Keep Vein Open Discontinued Medications Generic Name Dose Route Start Last Admin Trade Name Gopal PRN Reason Stop Dose Admin Acetaminophen 975 mg 07/28/21 16:43 07/28/21 17:00 Acetaminophen 325 Mg Tab PO 07/28/21 16:44 975 mg NOW ONE Administration Sodium Chloride 1,000 mls @ 999 mls/hr 07/28/21 16:43 07/28/21 16:59 Normal Saline IV 07/28/21 17:43 999 mls/hr ONETIME ONE Administration Metoclopramide HCl 10 mg 07/28/21 16:36 07/28/21 16:59 Metoclopramide 10 Mg/2 Ml Sdv IVPUSH 07/28/21 16:37 10 mg ONETIME ONE Administration - Re-Assessments/Exams Free Text/Narrative Re-Assessment/Exam: 07/28/21 16:49 Patient presents to the ER for evaluation of her nausea and vomiting. We will go ahead and get her some IV fluids, some nausea meds, and check some labs. 07/28/21 18:20 Labs essentially unremarkable, patient's hCG is elevated from previous visit. Patient's IV did infiltrate, so we are not able to get the full IV fluids in her but she was feeling better after the Reglan. We will trial her some tablets of Reglan for ongoing nausea management. Departure - Departure Time of Disposition: 18:20 Disposition: Home, Self-Care 01 Condition: Good Clinical Impression: Nausea and vomiting during - Discharge Information *PRESCRIPTION DRUG MONITORING PROGRAM REVIEWED*: No *COPY OF PRESCRIPTION DRUG MONITORING REPORT IN PATIENT ALEXYS: No Prescriptions: Metoclopramide HCl 10 mg PO QID PRN #20 tablet PRN Reason: Nausea Instructions: Nausea and Vomiting, Adult, [id number] Referrals: Leticia Smith [employer] [Primary Care Provider] - Forms: ED Department Discharge Additional Instructions: You were evaluated in the ER today for your nausea and vomiting in . Labs were performed, and essentially were within normal limits. You were given a small amount IV fluids before you IV became unusable, the nausea meds that we gave you seem to help relieve some of your nausea. This was Reglan. You have been given some tablets of this for ongoing nausea management. May take 1 tablet 4 times a day as needed for ongoing nausea. Do not take this and the Phenergan together as it can cause increased sedation. This medication was electronically sent to the [place] pharmacy located in the [facility] grocery store. You will need to follow-up with your [employer] for ongoing nausea management. Recommend you stick to a clear liquid diet over the next 24 to 48 hours advance to bland as tolerated. Do not hesitate to return to the ER at any time if symptoms change or worsen. Sepsis Event Note (ED) - Evaluation Sepsis Screening Result: No Definite Risk - Focused Exam Vital Signs: Vital Signs Temp Resp BP 07/28/21 16:31 97 F 16 128/65 - My Orders Last 24 Hours: My Active Orders 07/28/21 16:35 Sodium Chloride 0.9% [Saline Flush] 10 ml FLUSH ASDIRECTED PRN 07/28/21 16:36 Peripheral IV Care [RC] . DIRECTED Peripheral IV Insertion Adult [OM.PC] Stat - Assessment/Plan Last 24 Hours: My Active Orders 07/28/21 16:35 Sodium Chloride 0.9% [Saline Flush] 10 ml FLUSH ASDIRECTED PRN 07/28/21 16:36 Peripheral IV Care [RC] . DIRECTED Peripheral IV Insertion Adult [OM.PC] Stat
== END 2021-07-28 18:45 | disposition home or self-care (01) ==
LOC: JD.ED 15:48
DX: O21.9 Vomiting of pregnancy, unspecified (principal); O99.511 Diseases of the respiratory system complicating pregnancy, first trimester; J45.909 Unspecified asthma, uncomplicated; O99.211 Obesity complicating pregnancy, first trimester; E66.9 Obesity, unspecified; Z88.0 Allergy status to penicillin; Z91.018 Allergy to other foods; Z3A.08 8 weeks gestation of pregnancy
CPT/HCPCS: 36415; 80053; 84702; 85025; 96374; 99284; A9270; J2765; J7030

== ENCOUNTER 2022-02-12 07:10 | Inpatient (IN) | payer MEDICAID ==
[~2022-02-12 07:10] MED LIST changes: +Bupivacaine 0.25% 10 ML SDV ONE; -Bupivacaine 0.5%/EPINEPHrine 1:200,000 50 ML MDV ONE; -Clindamycin Phosphate 900 MG in Sodium Chloride 0.9% 100 ML IV ONE; -Clindamycin Phosphate 900 MG/6 ML SDV ONE; -Dextrose 5%-0.9% NaCl 1,000 ML IV SCH; -HYDROmorphone 1 MG/ML Syringe IVPUSH ONE; -Lidocaine 1% 2 ML ONE; -Lidocaine 1% 4 ML ONE; +Lidocaine 1.5% with EPINEPHrine 1:200,000 5 ML Amp ONE; +Lidocaine 2% with EPINEPHrine 1:200,000 20 ML SDV ONE; -Metoclopramide 10 MG/2 ML SDV IVPUSH ONE; -Ondansetron 4 MG/2 ML SDV ONE; -Propofol 200 MG/20 ML SDV ONE; -Rocuronium 50 MG/5 ML Vial ONE; -Sodium Chloride 0.9% 100 ML ONE; -Vancomycin 2 GM in Sodium Chloride 0.9% 500 ML IV ONE; -fentaNYL 250 MCG/5 ML SDV ONE; -oxyCODONE 5 MG Tab PO SCH
[2022-02-12] MEDS ORDERED: Nalbuphine HCl 10 MG/ 1ML Amp IVPUSH PRN (07:18)
[2022-02-12] MEDS ORDERED: Sodium Chloride 0.9% 10 ML Syringe FLUSH PRN (07:18)
[2022-02-12] MEDS ORDERED: Oxytocin/Lactated Ringers 10 UNIT/1,000 ML BAG IV SCH ×2 (07:30)
[2022-02-12] MEDS: Lactated Ringers 1,000 ML IV SCH ×5 (10:25→22:46)
[2022-02-12] MEDS: Ondansetron 4 MG/2 ML SDV IVPUSH PRN ×2 (11:25→18:01)
[2022-02-12] MEDS ORDERED: ePHEDrine 50 MG/ML SDV IVPUSH PRN (11:49)
[2022-02-12] MEDS ORDERED: diphenhydrAMINE 50 MG/ML SDV IVPUSH PRN (11:49)
[2022-02-12] MEDS ORDERED: Ondansetron 4 MG/2 ML SDV IVPUSH PRN (12:00)
[2022-02-12] MEDS: fentaNYL 100 MCG/2 ML SDV EPIDUR PRN ×2 (12:03→15:28)
[2022-02-12] MEDS: Bupivacaine/fentaNYL/NS 100 ML Bag EPIDUR PRN ×2 (12:03→17:58)
[2022-02-12] MEDS: Sodium Chloride 0.9% 10 ML Syringe FLUSH SCH (16:32)
[2022-02-12] MEDS ORDERED: Metoclopramide 10 MG/2 ML SDV IVPUSH ONE ×2 (22:36→22:46)
[2022-02-12] MEDS ORDERED: Citric Acid/Sodium Citrate Solution 30 ML Cup PO ONE ×2 (22:36→22:46)
[2022-02-12] MEDS ORDERED: Azithromycin 500 MG in Sodium Chloride 0.9% 250 ML IV ONE (22:37)
[2022-02-12] MEDS ORDERED: Bupivacaine 0.5% 30 ML SDV ONE (23:14)
[2022-02-12] MEDS ORDERED: Morphine PF 10 MG/10 ML SDV ONE (23:26)
[2022-02-12] MEDS ORDERED: fentaNYL 100 MCG/2 ML SDV ONE (23:26)
[2022-02-12] MEDS ORDERED: ceFAZolin 2 GM Vial ONE (23:28)
[2022-02-12] MEDS ORDERED: Oxytocin 10 Units/1 ML SDV ONE (23:30)
[2022-02-12] MEDS ORDERED: Ondansetron 4 MG/2 ML SDV ONE (23:38)
[2022-02-12] MEDS ORDERED: Lactated Ringers 1,000 ML ONE (23:46)
[2022-02-12] MEDS ORDERED: Ketorolac 30 MG/ML SDV ONE (23:49)
[2022-02-13] MEDS ORDERED: Phenylephrine 1% 10 MG/ML SDV ONE (00:02)
[2022-02-13] MEDS ORDERED: fentaNYL 100 MCG/2 ML SDV IVPUSH PRN (00:08)
[2022-02-13] MEDS ORDERED: diphenhydrAMINE 50 MG/ML SDV IVPUSH PRN ×2 (00:08→01:45)
[2022-02-13] MEDS ORDERED: Oxytocin 10 Units/1 ML SDV ONE (00:14)
[2022-02-13] MEDS ORDERED: Lactated Ringers 1,000 ML ONE (00:14)
[2022-02-13] MEDS ORDERED: Dextrose 5%-Lactated Ringers 1,000 ML IV SCH (01:45)
[2022-02-13] MEDS ORDERED: ePHEDrine 50 MG/ML SDV IVPUSH PRN (01:45)
[2022-02-13] MEDS ORDERED: Naloxone 0.4 MG/ML SDV IVPUSH PRN (01:45)
[2022-02-13] MEDS: Ondansetron 4 MG/2 ML SDV IVPUSH PRN ×2 (01:59→15:24)
[2022-02-13] MEDS: Docusate Sodium 100 MG Cap PO SCH ×2 (04:44→15:24)
[2022-02-13] MEDS: Ibuprofen 800 MG Tab PO SCH ×3 (04:44→17:30)
[2022-02-13] MEDS: Sodium Chloride 0.9% 10 ML Syringe FLUSH SCH (04:50)
[2022-02-13] MEDS: Ondansetron 4 MG/2 ML SDV IV PRN ×3 (06:29→19:39)
[2022-02-13] MEDS: Acetaminophen/oxyCODONE 325-5 MG Tab PO PRN ×2 (06:30→20:22)
[2022-02-13] MEDS ORDERED: Sodium Chloride 0.9% 1,000 ML IV ONE (08:28)
[2022-02-13] MEDS: Simethicone 80 MG Tab.Chew PO SCH ×5 (08:49→20:23)
[2022-02-13] MEDS: Prenatal Multivitamin with Calcium/Folic Acid/Iron Tab PO SCH ×2 (08:49→08:57)
[2022-02-14] MEDS: Acetaminophen/oxyCODONE 325-5 MG Tab PO PRN ×3 (00:38→12:58)
[2022-02-14] MEDS: Ibuprofen 800 MG Tab PO SCH ×2 (02:58→09:53)
[2022-02-14] MEDS: Docusate Sodium 100 MG Cap PO SCH ×3 (03:00→14:48)
[2022-02-14] MEDS ORDERED: Docusate Sodium 100 MG Cap PO ONE (08:12)
[2022-02-14] MEDS: Prenatal Multivitamin with Calcium/Folic Acid/Iron Tab PO SCH (08:19)
[2022-02-14] MEDS: Simethicone 80 MG Tab.Chew PO SCH ×2 (10:00→14:48)
[2022-02-14 10:01] VITALS: BP 141/81; PULSE 109
== END 2022-02-14 14:08 | disposition home or self-care (01) | DRG 788 ==
LOC: JD.OB 07:10 → OBSVTOIN 23:49 → JD.OB 23:50 → UNDODISIN 02-14 14:08
PROVIDERS: ADMIT Obstetrics & Gynecology; ATTEND Obstetrics & Gynecology
PROC: 10D00Z1 Extraction of Products of Conception, Low, Open Approach (ICD-10-PCS; principal; 2022-02-12)
PROC: 10907ZC Drainage of Amniotic Fluid, Therapeutic from Products of Conception, Via Natural or Artificial Opening (ICD-10-PCS; 2022-02-12)
PROC: 3E033VJ Introduction of Other Hormone into Peripheral Vein, Percutaneous Approach (ICD-10-PCS; 2022-02-12)
DX: O36.63X0 Maternal care for excessive fetal growth, third trimester, not applicable or unspecified (principal); Z3A.39 39 weeks gestation of pregnancy; Z37.0 Single live birth; O65.9 Obstructed labor due to maternal pelvic abnormality, unspecified; O62.2 Other uterine inertia; O99.214 Obesity complicating childbirth; E66.01 Morbid (severe) obesity due to excess calories; Z88.1 Allergy status to other antibiotic agents; Z91.018 Allergy to other foods; O24.420 Gestational diabetes mellitus in childbirth, diet controlled; O99.02 Anemia complicating childbirth; D50.8 Other iron deficiency anemias; O99.52 Diseases of the respiratory system complicating childbirth; J45.20 Mild intermittent asthma, uncomplicated
CPT/HCPCS: 36415; 51702; 59025; 82947; 85025; 86592; A9270-GY; J0456; J0690; J1885; J2274; J2370; J2405; J2590; J2765; J3010; J3490; J7030; J7050; J7120; J7121

== ENCOUNTER 2022-04-09 20:02 | Emergency (ER) | payer MEDICAID | END 2022-04-09 20:40 | LOC: JD.ED 20:02 | DX: Z53.21 Procedure and treatment not carried out due to patient leaving prior to being seen by health care provider (principal) ==

== ENCOUNTER 2022-06-17 22:09 | Emergency (ER) | payer MEDICAID ==
[2022-06-18] MEDS ORDERED: Ondansetron 4 MG/2 ML SDV IVPUSH ONE (01:43)
[2022-06-18] MEDS ORDERED: HYDROmorphone 0.5 MG/0.5 ML Syringe IVPUSH ONE (01:43)
[2022-06-18] MEDS ORDERED: Lactated Ringers 1,000 ML IV SCH (01:45)
[2022-06-18] MEDS ORDERED: Lactated Ringers 500 ML IV ONE (01:46)
[2022-06-18] MEDS ORDERED: Acetaminophen/HYDROcodone 325-5 MG Tab PO ONE (03:42)
[2022-06-18 04:13] VITALS: BP 125/91; PULSE 86
== END 2022-06-18 04:00 | disposition home or self-care (01) ==
LOC: JD.ED 22:09
DX: K80.20 Calculus of gallbladder without cholecystitis without obstruction (principal); J45.909 Unspecified asthma, uncomplicated; K21.9 Gastro-esophageal reflux disease without esophagitis; E66.9 Obesity, unspecified; Z68.41 Body mass index [BMI] 40.0-44.9, adult; Z91.018 Allergy to other foods; Z79.899 Other long term (current) drug therapy
CPT/HCPCS: 36415; 80053; 82248; 83690; 85025; 96361; 96374; 96375; 99284; A9270; J1170; J2405; J7120

== ENCOUNTER 2022-06-18 17:24 | Day surgery (SDC) | payer MEDICAID ==
[2022-06-18] MEDS ORDERED: Metoclopramide 10 MG/2 ML SDV IVPUSH ONE (17:59)
[2022-06-18] MEDS ORDERED: HYDROmorphone 1 MG/ML Syringe IVPUSH ONE (17:59)
[2022-06-18] MEDS ORDERED: Dextrose 5%-Lactated Ringers 1,000 ML IV SCH (18:00)
[2022-06-18] MEDS: ceFAZolin 2 GM in Sodium Chloride 0.9% 50 ML IV SCH (22:33)
[2022-06-18] MEDS: Lactated Ringers 1,000 ML IV SCH (22:36)
[2022-06-18] MEDS: metroNIDAZOLE/Normal Saline 500 MG in Premix Bag 1 BAG IV SCH (23:20)
[2022-06-19] MEDS ORDERED: Ondansetron 4 MG/2 ML SDV IVPUSH ONE ×2 (00:25→06:03)
[2022-06-19] MEDS: Lactated Ringers 1,000 ML IV SCH ×2 (05:19→11:47)
[2022-06-19] MEDS: ceFAZolin 2 GM in Sodium Chloride 0.9% 50 ML IV SCH (05:20)
[2022-06-19] MEDS: metroNIDAZOLE/Normal Saline 500 MG in Premix Bag 1 BAG IV SCH (06:11)
[2022-06-19] MEDS ORDERED: Metoclopramide 10 MG/2 ML SDV IVPUSH ONE (07:28)
[2022-06-19] MEDS ORDERED: HYDROmorphone 1 MG/ML Syringe IVPUSH ONE (07:52)
[2022-06-19] MEDS ORDERED: Rocuronium 50 MG/5 ML Vial ONE (07:56)
[2022-06-19] MEDS ORDERED: Midazolam 1 MG/ML 2 ML SDV ONE (07:56)
[2022-06-19] MEDS ORDERED: Propofol 200 MG/20 ML SDV ONE (07:56)
[2022-06-19] MEDS ORDERED: Ondansetron 4 MG/2 ML SDV ONE (07:56)
[2022-06-19] MEDS ORDERED: Lidocaine 1% 5 ML VIAL ONE (07:57)
[2022-06-19] MEDS ORDERED: fentaNYL 100 MCG/2 ML SDV ONE (07:58)
[2022-06-19] MEDS ORDERED: Lidocaine 1% with EPINEPHrine 1:100,000 10 ML MDV ONE ×2 (08:23→10:32)
[2022-06-19] MEDS ORDERED: Bupivacaine 0.5% 10 ML SDV ONE ×2 (08:23→10:32)
[2022-06-19] MEDS ORDERED: Citric Acid/Sodium Citrate Solution 30 ML Cup PO ONE (08:32)
[2022-06-19] MEDS ORDERED: Citric Acid/Sodium Citrate Solution 30 ML Cup ONE (08:34)
[2022-06-19] MEDS ORDERED: Dexamethasone 4 MG/ML 5 ML MDV ONE (08:40)
[2022-06-19] MEDS ORDERED: Sodium Chloride 0.9% 50 ML SDV ONE (08:44)
[2022-06-19] MEDS ORDERED: Iopamidol 612 MG/ML 50 ML SDV ONE (08:44)
[2022-06-19] MEDS ORDERED: Ketamine 500 mg/10 ML MDV ONE (09:07)
[2022-06-19] MEDS ORDERED: ceFAZolin 2 GM Vial ONE (09:20)
[2022-06-19] MEDS ORDERED: fentaNYL 100 MCG/2 ML SDV IVPUSH PRN (09:29)
[2022-06-19] MEDS ORDERED: Haloperidol Lactate 5 MG/ML SDV IVPUSH ONE (09:29)
[2022-06-19] MEDS ORDERED: HYDROmorphone 0.5 MG/0.5 ML Syringe IVPUSH PRN (09:29)
[2022-06-19] MEDS ORDERED: Ondansetron 4 MG/2 ML SDV IVPUSH PRN (09:29)
[2022-06-19] MEDS ORDERED: Lactated Ringers 1,000 ML ONE (09:36)
[2022-06-19] MEDS ORDERED: Glucagon,Human Recombinant 1 MG Vial ONE (09:57)
[2022-06-19] MEDS ORDERED: Neostigmine Methylsulfate 10 MG/10 ML MDV ONE (10:00)
[2022-06-19] MEDS ORDERED: Ketorolac 30 MG/ML SDV ONE (10:09)
[2022-06-19] MEDS ORDERED: oxyCODONE 5 MG Tab PO ONE (12:42)
[2022-06-19] MEDS ORDERED: Ibuprofen 200 MG Tab PO PRN (13:07)
[2022-06-19] MEDS ORDERED: Acetaminophen 325 MG Tab PO PRN (13:07)
[2022-06-19 13:31] VITALS: BP 130/79; PULSE 89
[2022-06-19] MEDS ORDERED: ceFAZolin 2 GM in Sodium Chloride 0.9% 50 ML IV SCH (14:00)
== END 2022-06-19 15:07 | disposition home or self-care (01) ==
LOC: JD.ED 17:24 → JD.SDS 06-19 07:00 → JD.MS 06-19 13:21 → JD.SDS 06-19 15:07
PROVIDERS: ATTEND Surgery
DX: K80.10 Calculus of gallbladder with chronic cholecystitis without obstruction (principal); K31.A0 Gastric intestinal metaplasia, unspecified; K83.8 Other specified diseases of biliary tract; E66.01 Morbid (severe) obesity due to excess calories; F32.A Depression, unspecified; E66.9 Obesity, unspecified; K21.9 Gastro-esophageal reflux disease without esophagitis; J45.909 Unspecified asthma, uncomplicated; Z79.899 Other long term (current) drug therapy; Z88.1 Allergy status to other antibiotic agents; Z91.018 Allergy to other foods; Z98.890 Other specified postprocedural states; Z68.41 Body mass index [BMI] 40.0-44.9, adult
CPT/HCPCS: 36415; 47563; 76000; 76705; 80053; 81001; 82977; 83690; 83735; 84703; 85025; 85610; 85730; 86140; A9270; J0690; J1100; J1170; J1885; J2250; J2405; J2704; J2710; J2765; J3010; J3490; J7120; J7121; Q9967; 00790; J1610

== ENCOUNTER 2023-05-02 05:23 | Emergency (ER) | payer MEDICAID ==
[2023-05-02] MEDS ORDERED: Sodium Chloride 0.9% 1,000 ML IV STA (05:49)
[2023-05-02] MEDS ORDERED: Ondansetron 4 MG/2 ML SDV IVPUSH ONE (05:49)
[2023-05-02] MEDS ORDERED: Sodium Chloride 0.9% 10 ML Syringe FLUSH PRN (05:49)
[2023-05-02] MEDS ORDERED: Ketorolac 30 MG/ML SDV IVPUSH ONE (05:50)
[2023-05-02] MEDS ORDERED: HYDROmorphone 0.5 MG/0.5 ML Syringe IVPUSH ONE (05:50)
[2023-05-02] MEDS ORDERED: methylPREDNISolone Sodium Succinate 125 MG/2 ML SDV IVPUSH ONE (05:50)
[2023-05-02 05:58] LABS: BASOPHILS ABSOLUTE AUTO 0.1 K/mm3 (0.0-0.2); BASOPHILS PERCENT AUTO 0.6 % (0.0-1.0); EOSINOPHILS ABSOLUTE AUTO 0.1 K/mm3 (0.0-0.4); HEMATOCRIT 42.9 % (37.0-47.0); HEMOGLOBIN 12.4 gm/dl (12.0-16.0); IMMATURE GRAN ABSOLUTE AUTO 0.04 K/mm3 (0.00-0.05); IMMATURE GRAN PERCENT AUTO 0.3 % (0.0-0.4); LYMPHOCYTES ABSOLUTE AUTO 1.9 K/mm3 (1.0-4.8); LYMPHOCYTES PERCENT AUTO 14.1 % (24.0-44.0); MEAN CORPUSCULAR HGB CONC 28.9 g/dl (32.0-36.0); MEAN CORPUSCULAR VOLUME 83.1 fl (83.0-99.0); MEAN PLATELET VOLUME 9.8 fl (9.4-12.3); MONOCYTES PERCENT AUTO 7.8 % (0.0-8.0); NEUTROPHILS ABSOLUTE AUTO 10.2 K/mm3 (1.8-7.7); NEUTROPHILS PERCENT AUTO 76.2 % (41.0-71.0); PLATELET COUNT,PLT 377 K/mm3 (150-400); RED BLOOD CELL COUNT 5.16 M/mm3 (4.10-5.30)
[2023-05-02 06:13] LABS: A/G RATIO 0.9 (1-2); ALBUMIN 3.9 g/dl (3.4-5.0); ANION GAP 18.2 (5-15); BILIRUBIN TOTAL 0.5 mg/dL (0.2-1.0); BUN/CREATININE RATIO 13.8 (14-18); CALCIUM 9.4 mg/dL (8.5-10.1); CREATININE 0.8 mg/dL (0.55-1.02); EST CRCL DRUG DOSING (CG) 89.7 mL/min; POTASSIUM,K 4.2 mEq/L (3.5-5.1); PROTEIN TOTAL,TP 8.4 g/dl (6.4-8.2)
[2023-05-02 06:23] LABS: SLIDE REVIEW ABNORMAL SMEAR
[2023-05-02] MEDS ORDERED: HYDROmorphone 1 MG/ML Syringe IVPUSH ONE (06:56)
[2023-05-02] MEDS ORDERED: Penicillin G Benzathine 1,200,000 Units/2 ML Syringe IM ONE (07:01)
[2023-05-02 07:50] VITALS: BP 105/63; PULSE 90
== END 2023-05-02 07:41 | disposition home or self-care (01) ==
LOC: JD.ED 05:23
DX: J02.0 Streptococcal pharyngitis (principal); R11.2 Nausea with vomiting, unspecified; E66.9 Obesity, unspecified; Z79.899 Other long term (current) drug therapy; Z91.018 Allergy to other foods; Z88.1 Allergy status to other antibiotic agents
CPT/HCPCS: 36415; 80053; 85025; 96361; 96372; 96374; 96375; 96376; 99284; J0561; J1170; J1885; J2405; J2930; J3490; J7030

== ENCOUNTER 2023-11-15 06:45 | Day surgery (SDC) | payer MEDICAID ==
[~2023-11-15 06:45] MED LIST changes: -Bupivacaine 0.25% 10 ML SDV ONE; -Lidocaine 1.5% with EPINEPHrine 1:200,000 5 ML Amp ONE; -Lidocaine 2% with EPINEPHrine 1:200,000 20 ML SDV ONE; +Sodium Chloride 0.9% 10 ML Syringe FLUSH PRN; +Sodium Chloride 0.9% 10 ML Syringe FLUSH SCH
[2023-11-15] MEDS: Lactated Ringers 1,000 ML IV SCH (07:15)
[2023-11-15 07:16] LABS: BASOPHILS PERCENT AUTO 0.4 % (0.0-1.0); EOSINOPHILS ABSOLUTE AUTO 0.1 K/mm3 (0.0-0.4); EOSINOPHILS PERCENT AUTO 1.3 % (0.0-6.0); HEMATOCRIT 36.2 % (37.0-47.0); HEMOGLOBIN 11.5 gm/dl (12.0-16.0); IMMATURE GRAN ABSOLUTE AUTO 0.04 K/mm3 (0.00-0.05); IMMATURE GRAN PERCENT AUTO 0.4 % (0.0-0.4); LYMPHOCYTES ABSOLUTE AUTO 3.2 K/mm3 (1.0-4.8); MEAN CORPUSCULAR HEMOGLOBIN 24.9 pg (28.0-32.0); MEAN CORPUSCULAR HGB CONC 31.8 g/dl (32.0-36.0); MEAN CORPUSCULAR VOLUME 78.4 fl (83.0-99.0); MEAN PLATELET VOLUME 9.2 fl (9.4-12.3); MONOCYTES ABSOLUTE AUTO 0.9 K/mm3 (0.0-0.8); MONOCYTES PERCENT AUTO 8.9 % (0.0-8.0); NEUTROPHILS ABSOLUTE AUTO 5.3 K/mm3 (1.8-7.7); PLATELET COUNT,PLT 310 K/mm3 (150-400); RED BLOOD CELL COUNT 4.62 M/mm3 (4.10-5.30); WHITE BLOOD CELL COUNT,WBC 9.54 K/mm3 (3.9-11.3)
[2023-11-15] MEDS ORDERED: Succinylcholine 200 MG/10 ML MDV ONE (07:21)
[2023-11-15] MEDS ORDERED: Rocuronium 50 MG/5 ML Vial ONE (07:21)
[2023-11-15] MEDS ORDERED: Lidocaine 1% 6 ML ONE (07:21)
[2023-11-15] MEDS ORDERED: Midazolam 1 MG/ML 2 ML SDV ONE (07:21)
[2023-11-15] MEDS ORDERED: fentaNYL 250 MCG/5 ML SDV ONE (07:22)
[2023-11-15] MEDS ORDERED: dexmedeTOMIDine HCl 200 MCG/2 ML SDV ONE (07:24)
[2023-11-15 07:29] LABS: ANION GAP 13.3 (5-15); BUN/CREATININE RATIO 17.1 (14-18); CALCIUM 8.8 mg/dL (8.5-10.1); CREATININE 0.7 mg/dL (0.55-1.02); EST CRCL DRUG DOSING (CG) 102.51 mL/min; POTASSIUM,K 4.3 mEq/L (3.5-5.1)
[2023-11-15] MEDS ORDERED: Propofol 200 MG/20 ML SDV ONE (07:34)
[2023-11-15] MEDS ORDERED: Metoclopramide 10 MG/2 ML SDV ONE (08:19)
[2023-11-15] MEDS ORDERED: Ondansetron 4 MG/2 ML SDV ONE (08:19)
[2023-11-15] MEDS: Bupivacaine 0.5% 30 ML SDV ONE (08:35)
[2023-11-15] MEDS ORDERED: Lactated Ringers 1,000 ML ONE (08:40)
[2023-11-15] MEDS ORDERED: fentaNYL 100 MCG/2 ML SDV IVPUSH PRN (08:46)
[2023-11-15] MEDS ORDERED: HYDROmorphone 0.5 MG/0.5 ML Syringe IVPUSH PRN (08:46)
[2023-11-15] MEDS ORDERED: Ketorolac 30 MG/ML SDV ONE (09:09)
[2023-11-15] MEDS ORDERED: Sugammadex Sodium 200 MG/2 ML VIAL IV ONE (09:16)
[2023-11-15] MEDS: Acetaminophen/oxyCODONE 325-5 MG Tab PO ONE (11:30)
[2023-11-15 11:56] VITALS: BP 110/74; PULSE 78
== END 2023-11-15 11:40 | disposition home or self-care (01) ==
LOC: JD.SDS 06:45
PROVIDERS: ATTEND Obstetrics & Gynecology
DX: N83.02 Follicular cyst of left ovary (principal); N83.01 Follicular cyst of right ovary; N80.103 Endometriosis of bilateral ovaries, unspecified depth
CPT/HCPCS: 36415; 49321; 58679; 80048; 81025; 85025; A9270; J0330; J0665; J1885; J2250; J2405; J2704; J2765; J3010; J3490; J7030; J7120; 00840

== ENCOUNTER 2024-07-17 08:07 | Day surgery (SDC) | payer MEDICAID ==
[~2024-07-17 08:07] MED LIST changes: +Ondansetron 4 MG/2 ML SDV IVPUSH PRN; +fentaNYL 100 MCG/2 ML SDV IVPUSH PRN
[2024-07-17] MEDS: Lactated Ringers 1,000 ML IV SCH (08:30)
[2024-07-17 08:55] LABS: BASOPHILS PERCENT AUTO 0.3 % (0.0-1.0); EOSINOPHILS ABSOLUTE AUTO 0.2 K/mm3 (0.0-0.4); EOSINOPHILS PERCENT AUTO 2.1 % (0.0-6.0); HEMATOCRIT 42.2 % (37.0-47.0); HEMOGLOBIN 14.1 gm/dl (12.0-16.0); IMMATURE GRAN ABSOLUTE AUTO 0.06 K/mm3 (0.00-0.05); IMMATURE GRAN PERCENT AUTO 0.6 % (0.0-0.4); LYMPHOCYTES ABSOLUTE AUTO 2.4 K/mm3 (1.0-4.8); LYMPHOCYTES PERCENT AUTO 25.5 % (24.0-44.0); MEAN CORPUSCULAR HEMOGLOBIN 28.2 pg (28.0-32.0); MEAN CORPUSCULAR HGB CONC 33.4 g/dl (32.0-36.0); MEAN CORPUSCULAR VOLUME 84.4 fl (83.0-99.0); MEAN PLATELET VOLUME 9.8 fl (9.4-12.3); MONOCYTES ABSOLUTE AUTO 0.7 K/mm3 (0.0-0.8); MONOCYTES PERCENT AUTO 6.8 % (0.0-8.0); NEUTROPHILS ABSOLUTE AUTO 6.2 K/mm3 (1.8-7.7); NEUTROPHILS PERCENT AUTO 64.7 % (41.0-71.0); PLATELET COUNT,PLT 303 K/mm3 (150-400); WHITE BLOOD CELL COUNT,WBC 9.54 K/mm3 (3.9-11.3)
[2024-07-17] MEDS: Acetaminophen 325 MG Tab PO ONE (08:58)
[2024-07-17] MEDS: Gabapentin 300 MG Cap PO ONE (08:58)
[2024-07-17] MEDS: Scopalamine 1mg/3day Transdermal Patch TOP ONE (08:58)
[2024-07-17] MEDS: Albuterol/Ipratropium 3.0-0.5 MG/3 ML Neb Soln NEB ONE (08:58)
[2024-07-17] MEDS: Phenazopyridine 95 MG Tab PO SCH (09:09)
[2024-07-17] MEDS: Celecoxib 100 MG Cap PO ONE (09:09)
[2024-07-17 09:15] LABS: BLOOD UREA NITROGEN,BUN 11 mg/dL (7-18); BUN/CREATININE RATIO 15.7 (14-18); CALCIUM 9.1 mg/dL (8.5-10.1); CARBON DIOXIDE,CO2 24 mEq/L (21-32); CHLORIDE,CL 104 mEq/L (98-107); CREATININE 0.7 mg/dL (0.55-1.02); ESTIMATED GFR 123 mL/min (>60); GLUCOSE RANDOM 102 mg/dL (70-99); SODIUM,NA 137 mEq/L (136-145)
[2024-07-17] MEDS ORDERED: Propofol 200 MG/20 ML SDV ONE (09:17)
[2024-07-17] MEDS ORDERED: Midazolam 1 MG/ML 2 ML SDV ONE (09:17)
[2024-07-17] MEDS ORDERED: Lidocaine 1% 5 ML VIAL ONE (09:18)
[2024-07-17] MEDS ORDERED: Ketorolac 30 MG/ML SDV ONE (09:18)
[2024-07-17] MEDS ORDERED: Ondansetron 4 MG/2 ML SDV ONE (09:18)
[2024-07-17] MEDS ORDERED: Rocuronium 50 MG/5 ML Vial ONE (09:18)
[2024-07-17] MEDS ORDERED: Dexamethasone 4 MG/ML 5 ML MDV ONE (09:18)
[2024-07-17] MEDS ORDERED: fentaNYL 250 MCG/5 ML SDV ONE (09:18)
[2024-07-17] MEDS ORDERED: Phenylephrine 1% 10 MG/ML SDV ONE (10:39)
[2024-07-17] MEDS ORDERED: ceFAZolin 2 GM Vial ONE (10:44)
[2024-07-17] MEDS ORDERED: Labetalol 100 MG/20 ML MDV ONE (12:08)
[2024-07-17] MEDS ORDERED: Sugammadex Sodium 200 MG/2 ML VIAL IV ONE (12:20)
[2024-07-17] MEDS ORDERED: fentaNYL 100 MCG/2 ML SDV ONE (12:20)
[2024-07-17] MEDS: Labetalol 100 MG/20 ML MDV IVPUSH ONE (13:10)
[2024-07-17] MEDS: HYDROmorphone 0.5 MG/0.5 ML Syringe IVPUSH PRN (13:45)
[2024-07-17] MEDS: oxyCODONE 5 MG Tab PO PRN (14:51)
[2024-07-17 16:13] VITALS: BP 116/74; PULSE 69
[2024-07-17] MEDS: Lidocaine 1% with EPINEPHrine 1:100,000 20 ML MDV ONE (16:25)
== END 2024-07-17 16:10 | disposition home or self-care (01) ==
LOC: JD.SDS 08:07
PROVIDERS: ATTEND Obstetrics & Gynecology
DX: N83.8 Other noninflammatory disorders of ovary, fallopian tube and broad ligament (principal); N72 Inflammatory disease of cervix uteri; N85.8 Other specified noninflammatory disorders of uterus; E66.01 Morbid (severe) obesity due to excess calories; Z68.42 Body mass index [BMI] 45.0-49.9, adult; K21.9 Gastro-esophageal reflux disease without esophagitis; J45.909 Unspecified asthma, uncomplicated; F32.A Depression, unspecified; Z87.891 Personal history of nicotine dependence
CPT/HCPCS: 36415; 58571; 80048; 81025; 85025; 86850; 86900; 86901; A9270; J0690; J1100; J1171; J1885; J1920; J2250; J2371; J2405; J2704; J3010; J3490; J7120; 00944; J7620-GY

== ENCOUNTER 2024-08-26 03:45 | Emergency (ER) | payer MEDICAID ==
[2024-08-26 04:37] LABS: BASOPHILS PERCENT AUTO 0.3 % (0.0-1.0); EOSINOPHILS ABSOLUTE AUTO 0.2 K/mm3 (0.0-0.4); EOSINOPHILS PERCENT AUTO 2.1 % (0.0-6.0); HEMATOCRIT 40.9 % (37.0-47.0); HEMOGLOBIN 13.4 gm/dl (12.0-16.0); IMMATURE GRAN ABSOLUTE AUTO 0.05 K/mm3 (0.00-0.05); IMMATURE GRAN PERCENT AUTO 0.5 % (0.0-0.4); LYMPHOCYTES ABSOLUTE AUTO 2.4 K/mm3 (1.0-4.8); LYMPHOCYTES PERCENT AUTO 25.6 % (24.0-44.0); MEAN CORPUSCULAR HEMOGLOBIN 27.7 pg (28.0-32.0); MEAN CORPUSCULAR HGB CONC 32.8 g/dl (32.0-36.0); MEAN CORPUSCULAR VOLUME 84.7 fl (83.0-99.0); MEAN PLATELET VOLUME 9.4 fl (9.4-12.3); MONOCYTES ABSOLUTE AUTO 0.6 K/mm3 (0.0-0.8); MONOCYTES PERCENT AUTO 6.4 % (0.0-8.0); NEUTROPHILS ABSOLUTE AUTO 6.1 K/mm3 (1.8-7.7); NEUTROPHILS PERCENT AUTO 65.1 % (41.0-71.0); PLATELET COUNT,PLT 326 K/mm3 (150-400); RED BLOOD CELL COUNT 4.83 M/mm3 (4.10-5.30); WHITE BLOOD CELL COUNT,WBC 9.33 K/mm3 (3.9-11.3)
[2024-08-26] MEDS ORDERED: Naloxone 0.4 MG/ML SDV IVPUSH PRN ×2 (04:45→06:16)
[2024-08-26 04:59] LABS: ALBUMIN 3.6 g/dl (3.4-5.0); ANION GAP 15.1 (5-15); BILIRUBIN TOTAL 0.3 mg/dL (0.2-1.0); BUN/CREATININE RATIO 14.3 (14-18); CREATININE 0.7 mg/dL (0.55-1.02); EST CRCL DRUG DOSING (CG) 101.63 mL/min; POTASSIUM,K 4.1 mEq/L (3.5-5.1); PROTEIN TOTAL,TP 7.3 g/dl (6.4-8.2)
[2024-08-26] MEDS: Ondansetron 4 MG/2 ML SDV IVPUSH ONE (05:41)
[2024-08-26] MEDS: Morphine 4 MG/ML Syringe IVPUSH ONE (05:41)
[2024-08-26] MEDS: Sodium Chloride 0.9% 10 ML Syringe FLUSH ONE (05:46)
[2024-08-26] MEDS: Iopamidol 612 MG/ML 100 ML Bottle IVPUSH ONE (06:04)
[2024-08-26] MEDS: Iopamidol 612 MG/ML 30 ML SDV IVPUSH ONE (06:04)
[2024-08-26 06:19] LABS: APPEARANCE,URINE CLEAR (Clear); BILIRUBIN,URINE NEGATIVE (Negative); COLOR,URINE LIGHT YELLOW (Yellow); GLUCOSE,URINE NEGATIVE (Negative); KETONES,URINE NEGATIVE (Negative); LEUKOCYTE ESTERASE,URINE NEGATIVE (Negative); NITRITE,URINE NEGATIVE (Negative); OCCULT BLOOD,URINE TRACE-INTACT (Negative); PROTEIN,URINE NEGATIVE (Negative); UROBILINOGEN,URINE 0.2 (0.2-1.0)
[2024-08-26] MEDS: HYDROmorphone 0.5 MG/0.5 ML Syringe IVPUSH ONE (06:24)
[2024-08-26 06:29] LABS: RBC,URINE 0-5 /hpf (0-5); WBC,URINE 0-5 /hpf (0-5)
[2024-08-26 06:30] LABS: BACTERIA,URINE FEW /hpf (FEW); MUCUS,URINE NOT SEEN /hpf (FEW)
[2024-08-26 08:52] VITALS: BP 121/68; PULSE 84
== END 2024-08-26 07:40 | disposition home or self-care (01) ==
LOC: JD.ED 03:45
DX: R10.32 Left lower quadrant pain (principal); J45.909 Unspecified asthma, uncomplicated; K21.9 Gastro-esophageal reflux disease without esophagitis; E66.9 Obesity, unspecified; Z68.42 Body mass index [BMI] 45.0-49.9, adult; Z91.018 Allergy to other foods; Z79.899 Other long term (current) drug therapy
CPT/HCPCS: 36415; 74177; 80053; 81001; 85025; 96374; 96375; 99284; J2270; J2405; Q9967; 99283

== ENCOUNTER 2024-11-20 08:42 | Emergency (ER) | payer MEDICAID ==
[2024-11-20] MEDS ORDERED: Sodium Chloride 0.9% 10 ML Syringe FLUSH PRN (09:07)
[2024-11-20] MEDS: Sodium Chloride 0.9% 1,000 ML IV SCH (09:30)
[2024-11-20] MEDS: Ketorolac 30 MG/ML SDV IVPUSH ONE (09:30)
[2024-11-20] MEDS: Ondansetron 4 MG/2 ML SDV IVPUSH ONE (09:30)
[2024-11-20 10:47] LABS: A/G RATIO 0.9 (1-2); ALANINE AMINOTRANSFERASE,ALT 93 U/L (14-59); ALBUMIN 3.5 g/dl (3.4-5.0); ALKALINE PHOSPHATASE 107 U/L (46-116); ANION GAP 13.1 (5-15); ASPARTATE AMNIOTRANSFERASE,AST 39 U/L (15-37); BILIRUBIN TOTAL 0.4 mg/dL (0.2-1.0); BLOOD UREA NITROGEN,BUN 11 mg/dL (7-18); BUN/CREATININE RATIO 15.7 (14-18); C-REACTIVE PROTEIN 0.94 mg/dL (<0.30); CALCIUM 8.9 mg/dL (8.5-10.1); CARBON DIOXIDE,CO2 23 mEq/L (21-32); CHLORIDE,CL 105 mEq/L (98-107); CREATININE 0.7 mg/dL (0.55-1.02); EST CRCL DRUG DOSING (CG) 101.63 mL/min; ESTIMATED GFR 123 mL/min (>60); GLUCOSE RANDOM 105 mg/dL (70-99); POTASSIUM,K 4.1 mEq/L (3.5-5.1); PROTEIN TOTAL,TP 7.4 g/dl (6.4-8.2); SODIUM,NA 137 mEq/L (136-145)
[2024-11-20 10:50] LABS: TROPONIN I HIGH SENSITIVITY < 4 pg/mL (<=51)
[2024-11-20 10:57] LABS: BASOPHILS PERCENT AUTO 0.2 % (0.0-1.0); EOSINOPHILS ABSOLUTE AUTO 0.2 K/mm3 (0.0-0.4); EOSINOPHILS PERCENT AUTO 2.1 % (0.0-6.0); HEMATOCRIT 42.7 % (37.0-47.0); HEMOGLOBIN 13.7 gm/dl (12.0-16.0); IMMATURE GRAN ABSOLUTE AUTO 0.03 K/mm3 (0.00-0.05); IMMATURE GRAN PERCENT AUTO 0.4 % (0.0-0.4); LYMPHOCYTES ABSOLUTE AUTO 1.3 K/mm3 (1.0-4.8); LYMPHOCYTES PERCENT AUTO 14.9 % (24.0-44.0); MEAN CORPUSCULAR HEMOGLOBIN 27.2 pg (28.0-32.0); MEAN CORPUSCULAR HGB CONC 32.1 g/dl (32.0-36.0); MEAN CORPUSCULAR VOLUME 84.7 fl (83.0-99.0); MEAN PLATELET VOLUME 9.9 fl (9.4-12.3); MONOCYTES PERCENT AUTO 11.6 % (0.0-8.0); NEUTROPHILS PERCENT AUTO 70.8 % (41.0-71.0); PLATELET COUNT,PLT 305 K/mm3 (150-400); RED BLOOD CELL COUNT 5.04 M/mm3 (4.10-5.30); WHITE BLOOD CELL COUNT,WBC 8.47 K/mm3 (3.9-11.3)
[2024-11-20] MEDS: HYDROmorphone 0.5 MG/0.5 ML Syringe IVPUSH ONE (11:16)
[2024-11-20 12:11] VITALS: BP 116/77; PULSE 92
== END 2024-11-20 12:05 | disposition home or self-care (01) ==
LOC: JD.ED 08:42
DX: J40 Bronchitis, not specified as acute or chronic (principal); J06.9 Acute upper respiratory infection, unspecified; E66.9 Obesity, unspecified; K21.9 Gastro-esophageal reflux disease without esophagitis; Z91.018 Allergy to other foods; Z91.010 Allergy to peanuts; Z79.899 Other long term (current) drug therapy
CPT/HCPCS: 36415; 71045; 71045-26; 80053; 84484; 85025; 86140; 86308; 87428-QW; 93005; 93010; 96361; 96374; 96375; 99284; 99285-25; J1885; J2405; J7030

== ENCOUNTER 2024-11-21 17:39 | Emergency (ER) | payer MEDICAID ==
[2024-11-21] MEDS: Albuterol/Ipratropium 3.0-0.5 MG/3 ML Neb Soln NEB ONE ×2 (18:49→19:03)
[2024-11-21] MEDS: Acetaminophen/HYDROcodone 325-5 MG Tab PO ONE (18:51)
[2024-11-21] MEDS: methylPREDNISolone Sodium Succinate 125 MG/2 ML SDV IM ONE (18:52)
[2024-11-21] MEDS: Ondansetron 4 MG Tab.DIS PO ONE (18:52)
[2024-11-21 19:33] VITALS: BP 109/72; PULSE 127
== END 2024-11-21 19:30 | disposition home or self-care (01) ==
LOC: JD.ED 17:39
DX: J45.901 Unspecified asthma with (acute) exacerbation (principal); J06.9 Acute upper respiratory infection, unspecified; J40 Bronchitis, not specified as acute or chronic; B97.4 Respiratory syncytial virus as the cause of diseases classified elsewhere; E66.9 Obesity, unspecified; F17.210 Nicotine dependence, cigarettes, uncomplicated; K21.9 Gastro-esophageal reflux disease without esophagitis; Z91.010 Allergy to peanuts; Z91.018 Allergy to other foods; Z79.899 Other long term (current) drug therapy; Z68.42 Body mass index [BMI] 45.0-49.9, adult
CPT/HCPCS: 94640; 96372; 99283; A9270-GY; J2919

== ENCOUNTER 2025-01-23 07:25 | Emergency (ER) | payer MEDICAID ==
[2025-01-23 07:58] VITALS: BP 132/89; PULSE 80
[2025-01-23] MEDS ORDERED: Naloxone 0.4 MG/ML SDV IVPUSH PRN (08:31)
[2025-01-23] MEDS: HYDROmorphone 1 MG/ML Syringe IVPUSH ONE (09:00)
[2025-01-23] MEDS: Ondansetron 4 MG/2 ML SDV IVPUSH ONE (09:00)
[2025-01-23] MEDS: Ketorolac 30 MG/ML SDV IVPUSH ONE (09:00)
[2025-01-23] MEDS: Sodium Chloride 0.9% 1,000 ML IV SCH (09:01)
[2025-01-23 09:07] LABS: BASOPHILS PERCENT AUTO 0.1 % (0.0-1.0); EOSINOPHILS ABSOLUTE AUTO 0.2 K/mm3 (0.0-0.4); EOSINOPHILS PERCENT AUTO 2.9 % (0.0-6.0); HEMATOCRIT 40.8 % (37.0-47.0); HEMOGLOBIN 13.5 gm/dl (12.0-16.0); IMMATURE GRAN ABSOLUTE AUTO 0.02 K/mm3 (0.00-0.05); IMMATURE GRAN PERCENT AUTO 0.3 % (0.0-0.4); LYMPHOCYTES ABSOLUTE AUTO 2.2 K/mm3 (1.0-4.8); MEAN CORPUSCULAR HGB CONC 33.1 g/dl (32.0-36.0); MEAN CORPUSCULAR VOLUME 84.5 fl (83.0-99.0); MEAN PLATELET VOLUME 9.5 fl (9.4-12.3); MONOCYTES ABSOLUTE AUTO 0.6 K/mm3 (0.0-0.8); MONOCYTES PERCENT AUTO 7.7 % (0.0-8.0); NEUTROPHILS ABSOLUTE AUTO 4.1 K/mm3 (1.8-7.7); PLATELET COUNT,PLT 308 K/mm3 (150-400); RED BLOOD CELL COUNT 4.83 M/mm3 (4.10-5.30); WHITE BLOOD CELL COUNT,WBC 7.15 K/mm3 (3.9-11.3)
[2025-01-23 09:24] LABS: A/G RATIO 1.1 (1-2); ALBUMIN 3.7 g/dl (3.4-5.0); BILIRUBIN TOTAL 0.3 mg/dL (0.2-1.0); BUN/CREATININE RATIO 15.7 (14-18); CALCIUM 9.1 mg/dL (8.5-10.1); CREATININE 0.7 mg/dL (0.55-1.02); EST CRCL DRUG DOSING (CG) 101.63 mL/min; MAGNESIUM 1.8 mg/dL (1.8-2.4); PROTEIN TOTAL,TP 7.2 g/dl (6.4-8.2)
[2025-01-23 09:32] LABS: APPEARANCE,URINE CLEAR (Clear); BILIRUBIN,URINE NEGATIVE (Negative); COLOR,URINE YELLOW (Yellow); GLUCOSE,URINE NEGATIVE (Negative); KETONES,URINE TRACE (Negative); LEUKOCYTE ESTERASE,URINE NEGATIVE (Negative); NITRITE,URINE NEGATIVE (Negative); OCCULT BLOOD,URINE NEGATIVE (Negative); PROTEIN,URINE TRACE (Negative)
[2025-01-23 09:39] LABS: BACTERIA,URINE MODERATE /hpf (FEW); MUCUS,URINE FEW /hpf (FEW); RBC,URINE 0-5 /hpf (0-5); WBC,URINE 0-5 /hpf (0-5)
[2025-01-23 09:41] LABS: AMPHETAMINES SCREEN, URINE NEGATIVE (CUTOFF=500); BARBITURATE SCREEN,URINE NEGATIVE (CUTOFF=200); BENZODIAZEPINES SCREEN,URINE NEGATIVE (CUTOFF=150); BUPRENORPHINE SCREEN,URINE NEGATIVE (CUTOFF=10); METHADONE SCREEN, URINE NEGATIVE (CUTOFF=200); METHAMPHETAMINES SCREEN, URINE NEGATIVE (CUTOFF=500); OXYCODONE SCREEN,URINE NEGATIVE (CUT0FF=100); THC SCREEN,URINE 20 NG/ML NEGATIVE (CUTOFF=50)
[2025-01-23] MEDS: Iopamidol 612 MG/ML 30 ML SDV IVPUSH ONE (09:45)
[2025-01-23] MEDS: Iopamidol 612 MG/ML 100 ML Bottle IVPUSH ONE (09:45)
[2025-01-23] MEDS ORDERED: HYDROmorphone 1 MG/ML Syringe IVPUSH ONE (12:31)
[2025-01-23] MEDS: HYDROmorphone 0.5 MG/0.5 ML Syringe IVPUSH ONE (12:52)
[2025-01-23] MEDS: Acetaminophen/oxyCODONE 325-5 MG Tab PO ONE (12:53)
== END 2025-01-23 13:20 | disposition home or self-care (01) ==
LOC: JD.ED 07:25
DX: N80.9 Endometriosis, unspecified (principal); K21.9 Gastro-esophageal reflux disease without esophagitis; Z88.8 Allergy status to other drugs, medicaments and biological substances; Z91.010 Allergy to peanuts; Z91.018 Allergy to other foods; Z79.899 Other long term (current) drug therapy; Z90.710 Acquired absence of both cervix and uterus
CPT/HCPCS: 36415; 74177; 80053; 80306; 81001; 82550; 83605; 83690; 83735; 85025; 96361; 96374; 96375; 96376; 99284; J1171; J1885; J2405; J7030; Q9967